=== PATIENT | female | born 1945 | race Caucasian/White ===

== ENCOUNTER 2019-04-17 21:17 | Inpatient (IN) | payer MEDICARE, OTHER ==
[~2019-04-17] VITALS: Ht 160 cm; Wt 126.0 kg
[2019-04-17 15:43] VITALS: BP 143/63
--- NOTE | 2019-04-17 21:32 | ED Abdominal Pain ---
General Stated Complaint: ABD PAIN Source of Information: Patient History of Present Illness Date Seen by Provider: Apr 17, 2019 Time Seen by Provider: 21:32 Initial Comments 73 yo F presenting with lower abdominal pain that is sharp in nature. She states she fell about a month ago and landed forward on her abdomen and face. She had seen Dr. River about the fall and was taking some medicine prescribed by him. However, in the last few days she has been having increased pain in the low abdomen. She felt the pain was worse tonight. 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 She feels it is worse with palpation. She denies having any blood in her stools or urine. She has no black tarry stools. She has had no fever, chills, nausea or vomiting. She denies having pain like this in the past. she is a diabetic patient. Allergies and Home Medications Allergies Coded Allergies: No Known Drug Allergies (Unverified , 04/17/19) Patient Home Medication List Home Medication List Reviewed: Yes Review of Systems Review of Systems Constitutional: No chills, No fever EENTM: No Symptoms Reported Respiratory: No Symptoms Reported Cardiovascular: No Symptoms Reported Gastrointestinal: See HPI, Abdominal Pain (low abdominal pain); Denies Blood Streaked Stools, Denies Constipated; Diarrhea (chronic); Denies Difficulty Swallowing, Denies Nausea, Denies Rectal Bleeding, Denies Vomiting Genitourinary: No Symptoms Reported; Denies Burning, Denies Discharge, Denies Drainage, Denies Frequency, Denies Flank Pain, Denies Hematuria, Denies Incontinence, Denies Urgency Musculoskeletal: back pain (chronic but no worse than normal and no radiation of low abdominal pain to her back) Skin: No rash Psychiatric/Neurological: Denies Headache, Denies Numbness, Denies Paresthesia Endocrine: Denies Unexplained Weight Gain, Denies Unexplaned Weight Loss Past Tqnhcfd-Eryjjz-Uzmywg Hx Patient Social History Recent Foreign Travel: No Contact w/Someone Who Travel: No Past Medical History Surgeries: Yes Appendectomy, Gallbladder, Hysterectomy Endocrine: Yes Diabetes, Non-Insulin dep Physical Exam Vital Signs Vital Signs - First Documented 04/17/19 21:20 Temp 36.5 Pulse 74 Resp 18 B/P (MAP) 163/95 (117) Pulse Ox 95 O2 Delivery Room Air Capillary Refill : Height/Weight/BMI Height: '" Weight: lbs. oz. 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 tested, alert, oriented x 3, other (anxious and tearful) Skin: normal color, warm/dry Progress/Results/Core Measures Results/Orders Lab Results Laboratory Tests Test 04/17/19 21:40 04/17/19 23:00 Range/Units White Blood Count 13.7 H 4.3-11.0 10^3/uL Red Blood Count 5.23 4.35-5.85 10^6/uL Hemoglobin 14.6 11.5-16.0 G/DL Hematocrit 45 35-52 % Mean Corpuscular Volume 87 80-99 FL Mean Corpuscular Hemoglobin 28 25-34 PG Mean Corpuscular Hemoglobin Concent 32 32-36 G/DL Red Cell Distribution Width 14.2 10.0-14.5 % Platelet Count 314 130-400 10^3/uL Mean Platelet Volume 10.1 7.4-10.4 FL Neutrophils (%) (Auto) 66 42-75 % Lymphocytes (%) (Auto) 23 12-44 % Monocytes (%) (Auto) 8 0-12 % Eosinophils (%) (Auto) 2 0-10 % Basophils (%) (Auto) 1 0-10 % Neutrophils # (Auto) 9.1 H 1.8-7.8 X 10^3 Lymphocytes # (Auto) 3.2 1.0-4.0 X 10^3 Monocytes # (Auto) 1.0 0.0-1.0 X 10^3 Eosinophils # (Auto) 0.3 0.0-0.3 10^3/uL Basophils # (Auto) 0.1 0.0-0.1 10^3/uL Sodium Level 135 135-145 MMOL/L Potassium Level 4.9 3.6-5.0 MMOL/L Chloride Level 100 98-107 MMOL/L Carbon Dioxide Level 21 21-32 MMOL/L Anion Gap 14 5-14 MMOL/L Blood Urea Nitrogen 41 H 7-18 MG/DL Creatinine 2.01 H 0.60-1.30 MG/DL Estimat Glomerular Filtration Rate 24 BUN/Creatinine Ratio 20 Glucose Level 174 H 70-105 MG/DL Calcium Level 9.7 8.5-10.1 MG/DL Corrected Calcium 9.9 8.5-10.1 MG/DL Total Bilirubin 0.3 0.1-1.0 MG/DL Aspartate Amino Transf (AST/SGOT) 15 5-34 U/L Alanine Aminotransferase (ALT/SGPT) 14 0-55 U/L Alkaline Phosphatase 82 40-136 U/L Total Protein 7.1 6.4-8.2 GM/DL Albumin 3.8 3.2-4.5 GM/DL Lipase 35 8-78 U/L Urine Color YELLOW Urine Clarity SL CLOUDY Urine pH 6.0 5-9 Urine Specific [place] >=1.030 1.016-1.022 Urine Protein NEGATIVE NEGATIVE Urine Glucose (UA) NEGATIVE NEGATIVE Urine Ketones NEGATIVE NEGATIVE Urine Nitrite NEGATIVE NEGATIVE Urine Bilirubin NEGATIVE NEGATIVE Urine Urobilinogen 0.2 < = 1.0 MG/DL Urine Leukocyte Esterase 1+ H NEGATIVE Urine RBC (Auto) NEGATIVE NEGATIVE Urine RBC NONE /HPF Urine WBC 25-50 H /HPF Urine Squamous Epithelial Cells 10-25 H /HPF Urine Crystals NONE /LPF Urine Bacteria LARGE H /HPF Urine Casts NONE /LPF Urine Mucus MODERATE H /LPF Urine Culture Indicated YES My Orders Orders - HUGO ROCHA MD Comprehensive Metabolic Panel (04/17/19 21:49) Lipase (04/17/19 21:49) Ua Culture If Indicated (04/17/19 21:49) Ed Iv/Invasive Line Start (04/17/19 21:49) Cbc With Automated Diff (04/17/19 21:49) Ct Abdomen/Pelvis W (04/17/19 21:49) Fentanyl Injection (Sublimaze Injection (04/17/19 21:49) Ns Iv 1000 Ml (Sodium Chloride 0.9%) (04/17/19 21:49) Iohexol Injection (Omnipaque 350 Mg/Ml 1 (04/17/19 22:00) Received Contrast (Hold Metformin- Contr (04/17/19 22:00) Sodium Chloride Flush (Catheter Flush Sy (04/17/19 22:00) Ns (Ivpb) (Sodium Chloride 0.9% Ivpb Bag (04/17/19 22:00) Ct Abdomen/Pelvis Wo (04/17/19 22:17) Urine Culture (04/17/19 23:00) Fentanyl Injection (Sublimaze Injection (04/17/19 23:23) Ns Iv 1000 Ml (Sodium Chloride 0.9%) (04/17/19 23:23) Ciprofloxacin Iv 400mg/200ml (Cipro Iv S (04/17/19 23:23) Metronidazole 500mg/100ml Ivpb (Flagyl 5 (04/17/19 23:23) Vital Signs/I&O 04/17/19 21:20 Temp 36.5 Pulse 74 Resp 18 B/P (MAP) 163/95 (117) Pulse Ox 95 O2 Delivery Room Air 04/18/19 00:00 Intake Total 1000 ml Balance 1000 ml Progress Progress Note #1: Progress Note check labs and urine. Plan to do CT scan of abdomen/pelvis with IV contrast once the labs are back to see what her creatinine and kidney function is doing. Try a dose of Fentanyl 50 mcg to see if that helps her pain. She denies nausea so will not need Zofran. Give IVF 1 L NS for hydration and keep pt NPO until know if she needs any surgical intervention from testing and CT results. Progress Note #2: Progress Note Labs show that she has mild elevation of her WBC count to 13.7 and her chemistry panel shows elevated BUN and Cr. Cr is at 2.1 but unknown if she has a chronic renal insufficiency or if this is an acute issue for her. Will change the CT from a contrast study to non contrast study. Progress Note #3: Time: 23:[address] scan shows sigmoid diverticulitis without perforation or abscess. Urine shows UTI without hematuria. Pt still having pain despite fentanyl. Based on her age and comorbidities and continued pain she has a greater risk for higher morbidity and mortality with this so would recommend IV antibiotics, pain medicine and IVF for hydration for initial treatment and then transition to oral medicine as she is showing improvement in the hospital for transition to home. Will check with Dr. Gill test kitchen home economist for Dr. River and [facility] about admit. Progress Note #4: Time: 00:[address] Gill accepted admit so will place orders for patient and continue with IVF and IV antibiotics starting with cipro and flagyl. Diagnostic Imaging Diagonstic Imaging: CT Plain Films/CT/US/NM/MRI: abdomen, pelvis Comments Impression: Sigmoid colon diverticulitis with mild stranding around the sigmoid colon. No abscess, free fluid, perforation or bowel obstruction seen. Radiologist: Dr. Esvin George MD. Read at [phone] and faxed at [phone]. Reviewed: Reviewed Night [facility] Study Departure Communication (Admissions) Time/Spoke to Admitting Phy: 00:[address] Gill for Dr. River with [facility] and she accepted pt for admit for her acute sigmoid diverticulitis, UTI, and renal insufficiency. Will give Cipro and flagyl and IVF and monitor her response to the medicine to see how her kidney function does as well as how her pain level does. Hopefully she responds quickly and she will be able to transition to oral antibiotics and be transitioned to home but until she is showing improvement and to make sure the kidney function is not worsening will have to recheck her labs. Impression Primary Impression: Sigmoid diverticulitis Additional Impressions: Cystitis without hematuria Acute renal insufficiency LLQ abdominal pain Suprapubic abdominal pain Disposition: ADMITTED INPATIENT Condition: Stable Admissions Decision to Admit Reason: Admit from ER (General) Decision to Admit/Date: Apr 18, 2019 Time/Decision to Admit Time: 00:06 Departure-Patient Inst. Referrals: YANELI RIVER MD (PCP/Family) Primary Care Physician HUGO ROCHA MD Apr 17, 2019 21:32
[2019-04-17] MEDS ORDERED: fentaNYL INJECTION 100 MCG/2 ML AMP IVP STA ×2 (21:49→23:23)
[2019-04-17] MEDS ORDERED: NS IV 1000 ML 1,000 ML IV STA ×2 (21:49→23:23)
[2019-04-17] MEDS ORDERED: IOHEXOL 350 MG/ML 100 ML (OMNIPAQUE 350) VIAL IV ONE (22:00)
[2019-04-17] MEDS ORDERED: HOLD METFORMIN - RECEIVED CONTRAST 20 ML VIAL IV SCH (22:00)
[2019-04-17] MEDS ORDERED: NS 100 ML (IVPB) BAG IV ONE (22:00)
[2019-04-17] MEDS ORDERED: CATHETER FLUSH 10 ML SYR IV PRN (22:00)
[2019-04-17 22:05] LABS: BASOPHILS # (AUTO) 0.1 10^3/uL (0.0-0.1); BASOPHILS % (AUTO) 1 % (0-10); EOSINOPHILS # (AUTO) 0.3 10^3/uL (0.0-0.3); EOSINOPHILS % (AUTO) 2 % (0-10); HEMATOCRIT 45 % (35-52); HEMOGLOBIN 14.6 G/DL (11.5-16.0); LYMPHOCYTES # (AUTO) 3.2 X 10^3 (1.0-4.0); LYMPHOCYTES % (AUTO) 23 % (12-44); MEAN CORPUSCULAR HEMOGLOBIN 28 PG (25-34); MEAN CORPUSCULAR HGB CONC 32 G/DL (32-36); MEAN CORPUSCULAR VOLUME 87 FL (80-99); MEAN PLATELET VOLUME 10.1 FL (7.4-10.4); MONOCYTES % (AUTO) 8 % (0-12); NEUTROPHILS # (AUTO) 9.1 X 10^3 (1.8-7.8); NEUTROPHILS % (AUTO) 66 % (42-75); PLATELET COUNT 314 10^3/uL (130-400); RED CELL DISTRIBUTION WIDTH 14.2 % (10.0-14.5); WHITE BLOOD COUNT 13.7 10^3/uL (4.3-11.0)
[2019-04-17 22:10] LABS: ALBUMIN 3.8 GM/DL (3.2-4.5); BILIRUBIN,TOTAL 0.3 MG/DL (0.1-1.0); CALCIUM 9.7 MG/DL (8.5-10.1); CREATININE SERUM 2.01 MG/DL (0.60-1.30); POTASSIUM 4.9 MMOL/L (3.6-5.0); TOTAL PROTEIN 7.1 GM/DL (6.4-8.2)
[2019-04-17 23:18] LABS: BACTERIA,URINE LARGE /HPF; BILIRUBIN,URINE NEGATIVE (NEGATIVE); CLARITY,URINE SL CLOUDY; COLOR,URINE YELLOW; GLUCOSE, URINE (UA) NEGATIVE (NEGATIVE); KETONES,URINE NEGATIVE (NEGATIVE); LEUKOCYTE ESTERASE ,URINE 1+ (NEGATIVE); NITRITE,URINE NEGATIVE (NEGATIVE); PROTEIN,URINE NEGATIVE (NEGATIVE); WBC,URINE 25-50 /HPF
[2019-04-17] MEDS ORDERED: CIPROFLOXACIN IV 400MG/200ML 200 ML IV STA (23:23)
[2019-04-17] MEDS ORDERED: metroNIDAZOLE 500MG/100ML IVPB 100 ML IV STA (23:23)
[2019-04-18] MEDS ORDERED: morphine INJ 4 MG/ML 1 ML (VIAL/SYRINGE) ONE (01:51)
[2019-04-18 01:58] VITALS: BP 162/67
[2019-04-18] MEDS: NS IV 1000 ML 1,000 ML IV SCH ×3 (03:00→19:55)
[2019-04-18] MEDS ORDERED: ONDANSETRON 4 MG/2 ML (SDV) Z0FRAN IV PRN (03:15)
--- NOTE | 2019-04-18 04:47 | NUR ---
o2 2l per nc applied pox on room air 86%.. pox 96% after o2 application
--- NOTE | 2019-04-18 04:52 | NUR ---
0200 pt admitted from [facility]. a/o x4 iv site patent. see admission
[2019-04-18 05:32] LABS: BASOPHILS % (AUTO) 0 % (0-10); EOSINOPHILS # (AUTO) 0.2 10^3/uL (0.0-0.3); EOSINOPHILS % (AUTO) 2 % (0-10); HEMATOCRIT 43 % (35-52); HEMOGLOBIN 13.6 G/DL (11.5-16.0); LYMPHOCYTES # (AUTO) 1.1 X 10^3 (1.0-4.0); LYMPHOCYTES % (AUTO) 10 % (12-44); MEAN CORPUSCULAR HEMOGLOBIN 28 PG (25-34); MEAN CORPUSCULAR HGB CONC 32 G/DL (32-36); MEAN CORPUSCULAR VOLUME 87 FL (80-99); MEAN PLATELET VOLUME 10.4 FL (7.4-10.4); MONOCYTES # (AUTO) 0.6 X 10^3 (0.0-1.0); MONOCYTES % (AUTO) 6 % (0-12); NEUTROPHILS # (AUTO) 8.2 X 10^3 (1.8-7.8); NEUTROPHILS % (AUTO) 82 % (42-75); PLATELET COUNT 252 10^3/uL (130-400); RED CELL DISTRIBUTION WIDTH 14.7 % (10.0-14.5); WHITE BLOOD COUNT 10.1 10^3/uL (4.3-11.0)
[2019-04-18 05:49] LABS: ALBUMIN 3.4 GM/DL (3.2-4.5); BILIRUBIN,TOTAL 0.4 MG/DL (0.1-1.0); CALCIUM 8.8 MG/DL (8.5-10.1); CREATININE SERUM 1.73 MG/DL (0.60-1.30); POTASSIUM 4.3 MMOL/L (3.6-5.0); TOTAL PROTEIN 6.4 GM/DL (6.4-8.2)
[2019-04-18 05:53] VITALS: BP 151/59
[2019-04-18] MEDS: metroNIDAZOLE 500 MG/100 ML IVPB (PRE-MIX) IV SCH ×3 (06:21→21:13)
[2019-04-18] MEDS ORDERED: FLU QUADRIvalent (5+ YOA) 2019-2020 (AFLURIA) 0.5 ML IM ONE (06:45)
--- NOTE | 2019-04-18 07:27 | Diagnostic Imaging Report ---
CT ABDOMEN/PELVIS WO TECHNIQUE: Unenhanced CT imaging of the abdomen and pelvis was performed. 2-D reformats are created and submitted for interpretation. Automatic exposure controls were utilized to optimize patient dose. INDICATION: Abdominal pain COMPARISON: None available. FINDINGS: Evaluation of the abdominal viscera is mildly limited without contrast. Lower chest: There is small amount of dependent atelectasis in the bilateral lower lobes. Otherwise, lung bases are clear. Peritoneum: No free intraperitoneal air or fluid. Liver and biliary system: Unenhanced liver is normal. Cholecystectomy. Spleen and Pancreas: Spleen is normal. Unenhanced pancreas is grossly normal. Adrenals: Normal. tract: No renal or ureteral calculi. No obstructive uropathy. Urinary bladder is normally filled without wall thickening. Hysterectomy. No adnexal mass. GI tract: Stomach is partially filled with fluid and food debris. No bowel obstruction. There is a short segment of diverticulosis in the mid sigmoid colon with surrounding fat stranding and wall thickening indicative of acute diverticulitis. No perforation or abscess. Appendix is not seen but there are no features of appendicitis. Vasculature and Lymph nodes: Normal caliber aorta. No abdominal or pelvic lymphadenopathy. Musculoskeletal: No concerning osseous lesion. IMPRESSION: 1. Acute diverticulitis of the sigmoid colon. 2. No perforation, abscess or bowel obstruction. 3. Findings are in agreement with the preliminary report. Dictated by: Dictated on workstation # [id number]
[2019-04-18 08:00] VITALS: BP 143/77
[2019-04-18] MEDS: CIPROFLOXACIN 400 MG/D5W 200 ML (PRE-MIX) IV SCH ×2 (08:26→19:55)
[2019-04-18] MEDS ORDERED: ONDA4TAB10 PO (08:32)
[2019-04-18] MEDS ORDERED: ASPI-983 PO (08:32)
[2019-04-18] MEDS ORDERED: ESTR0.5T3 PO (09:44)
[2019-04-18] MEDS ORDERED: ATOR40TA70 PO (09:44)
[2019-04-18] MEDS ORDERED: CRV25T PO (09:44)
[2019-04-18] MEDS ORDERED: VERA120T10 PO (09:44)
[2019-04-18] MEDS ORDERED: CYCL10TA9 PO (09:44)
[2019-04-18] MEDS ORDERED: GLIP10TA13 PO (09:44)
[2019-04-18] MEDS ORDERED: LEVO75TA6 PO (09:44)
[2019-04-18] MEDS ORDERED: CITA20TA9 PO (09:44)
[2019-04-18] MEDS: morphine INJ 4 MG/ML 1 ML (VIAL/SYRINGE) IV PRN ×3 (09:54→19:53)
--- NOTE | 2019-04-18 10:05 | NUR ---
PATIENT USES [facility] FOR 2019 BUT IN 2020 WILL BE USING [facility], HER MEDS COME MOSTLY VIA MAIL. HER BROUGHT IN HER BOTTLES THIS MORNING AND SHE ASSURES ME THESE ARE ALL SHE TAKES. SOME OF THEM HAVE OLD FILL DATES, SHE STATE SHE DUMPS HER NEW BOTTLES INTO THE OLD ONES AND THAT IS WHY SOME OF THE DATES ARE PAST DUE FOR REFILL. BOTTLES SHE BROUGHT IN: 03-13-19 ESTRADIOL 0.5MG DAILY #90 03-13-19 LEVOTHYROXINE 75MCG DAILY #90 02-23-19 ATORVASTATIN 40MG DAILY #90 12-26-18 CYCLOBENZAPRINE 10MG HS #90 12-26-18 GLIPIZIDE 10MG BID #180 12-26-18 CITALOPRAM 20MG 1 & 1/2 HS #135 12-26-18 VERAPAMIL ER 120MG 12HR DAILY #90 11-29-17 COREG 25MG BID #180 SHE HAS ZOFRAN 4MG THAT WAS FILLED RECENTLY AT [facility] SHE ALSO HAS SOME OF THE ORAL DISINTEGRATING TABLETS. SHE TAKES ASPIRIN 81MG DAILY OTC.
--- NOTE | 2019-04-18 10:21 | History & Physical ---
KIM PANDEY,MED STUDENT 04/18/19 1021: History of Present Illness History of Present Illness Reason for visit/HPI Patient is a 73 year old female who presented to [facility] ED c/o abdominal pain intermittently for the last 3 months. She states the pain is diffuse but worse in the RLQ and would come and go, but starting last night became constant. At the ED she rated her pain a 10/10, and at the time of this exam rates the pain a 7/10. She describes the pain as sharp and nonradiating. She states that nothing in particular makes the pain better or worse. She also reports inter mittent diarrhea that she has had "for a long time". Denies blood in stool, or black tarry stools. Denies n/v. Admits bloating that began yesterday, and dizziness upon standing up too fast. States that she has never had pain like this in the past. Date of Admission Apr 18, 2019 at 00:06 Time Seen by a Provider: 09:45 I consulted on this patient on 04/18/19 10:12 Attending Physician Jennifer Gill MD Admitting Physician Papi Zarate MD Consult Allergies and Home Medications Allergies Coded Allergies: No Known Drug Allergies (Unverified , 04/17/19) Home Medications Aspirin 81 Mg Tablet.dr, 81 MG PO DAILY, (Reported) Atorvastatin Calcium 40 Mg Tablet, 40 MG PO DAILY, (Reported) Carvedilol 25 Mg Tab, 25 MG PO BID, (Reported) Citalopram Hydrobromide 20 Mg Tablet, 30 MG PO DAILY, (Reported) TAKES 1 & 1/2 (20MG) TABLET Cyclobenzaprine HCl 10 Mg Tablet, 10 MG PO HS, (Reported) Estradiol 0.5 Mg Tablet, 0.5 MG PO DAILY, (Reported) Glipizide 10 Mg Tablet, 10 MG PO BID WITH MEALS, (Reported) Levothyroxine Sodium 75 Mcg Tablet, 75 MCG PO DAILY, (Reported) Ondansetron HCl 4 Mg Tablet, 4 MG PO Q6H PRN for NAUSEA/VOMITING-1ST LINE, (Reported) Verapamil HCl 120 Mg Tablet.er, 120 MG PO DAILY, (Reported) Past Rihavgm-Mkmxsm-Tthucg Hx Patient Social History Alcohol Use: Denies Use Recreational Drug Use: No Smoking Status: Never a Smoker 2nd Hand Smoke Exposure: No Recent Foreign Travel: No Contact w/other who traveled: No Recent Hopitalizations: No Recent Infectious Disease Expo: No Surgeries Yes Appendectomy, Gallbladder, Hysterectomy Respiratory No Cardiovascular Yes High Cholesterol, Hypertension Neurological No Genitourinary No Gastrointestinal No Musculoskeletal No Endocrine History of Endocrine Disorders: Yes Endocrine Disorders: Diabetes, Non-Insulin dep HEENT History of HEENT Disorders: No Cancer No Psychosocial History of Psychiatric Problem: No Integumentary History of Skin or Integumenta: No Blood Transfusions History of Blood Disorders: No Family Medical History Significant Family History: Lung Disease, Other Conditions/Hx (Father of [place]) Review of Systems Constitutional: No chills; dizziness (lightheadedness on standing occasionally); No fever Respiratory: No cough, No hemoptysis, No short of breath, No stridor Cardiovascular: No chest pain, No edema, No palpitations Gastrointestinal: abdominal pain (RLQ), diarrhea; No hematemesis, No melena, No nausea, No vomiting Genitourinary: No dysuria, No frequency, No hematuria Musculoskeletal: neck pain Physical Exam Vital Signs Vital Signs - First Documented 04/17/19 04/18/19 21:20 05:53 Temp 36.5 Pulse 74 Resp 18 B/P (MAP) 163/95 (117) Pulse Ox 95 O2 Delivery Room Air O2 Flow Rate 2.00 Capillary Refill : Less Than 3 SecondsLess Than 3 Seconds Height, Weight, BMI Height: '" Weight: lbs. oz. kg; 49.21 BMI Method: General Appearance: No Apparent Distress, WD/WN Eyes: Bilateral Eye PERRL, Bilateral Eye EOMI HEENT: PERRL/EOMI; No Pharyngeal Erythema, No Scleral Icterus (L), No Scleral Icterus (R) Neck: Non Tender, Supple; No Lymphadenopathy (L), No Lymphadenopathy (R) Respiratory: Lungs Clear, Normal Breath Sounds, No Accessory Muscle Use, No Respiratory Distress; No Rhonci, No Wheezing Cardiovascular: Regular Rate, Rhythm, No Murmur, Normal Peripheral Pulses Gastrointestinal: Normal Bowel Sounds, Soft; No Distended, No Guarding, No Rebound; Tenderness (RLQ, LLQ with palpation) Extremity: Normal Capillary Refill, Non Tender, No Calf Tenderness Neurologic/Psychiatric: Alert, Oriented x3, Normal Mood/Affect Skin: Normal Color, Warm/Dry; No Jaundice Lymphatic: No Adenopathy Assessment/Plan Assessment and Plan RLQ abdominal pain Acute diverticulitis Cystitis w/o hematuria Leukocytosis Continue Flagyl and Cipro Continue fentanyl prn for pain Monitor leukocytosis Normal diet as tolerated Admission Diagnosis Admission Status: Observation Clinical Quality Measures DVT/VTE Risk/Contraindication: Risk Factor Score Per Nursin RFS Level Per Nursing on Admit: 2=Moderate CHE MCCOY MD 04/18/19 1601: History of Present Illness History of Present Illness Reason for visit/HPI Agree with above Patient states that she is feeling better this AM. She tolerated breakfast. Date Seen by a Provider: Apr 18, 2019 Allergies and Home Medications Allergies Coded Allergies: No Known Drug Allergies (Unverified , 04/17/19) Home Medications Aspirin 81 Mg Tablet.dr, 81 MG PO DAILY, (Reported) Atorvastatin Calcium 40 Mg Tablet, 40 MG PO DAILY, (Reported) Carvedilol 25 Mg Tab, 25 MG PO BID, (Reported) Citalopram Hydrobromide 20 Mg Tablet, 30 MG PO DAILY, (Reported) TAKES 1 & 1/2 (20MG) TABLET Cyclobenzaprine HCl 10 Mg Tablet, 10 MG PO HS, (Reported) Estradiol 0.5 Mg Tablet, 0.5 MG PO DAILY, (Reported) Glipizide 10 Mg Tablet, 10 MG PO BID WITH MEALS, (Reported) Levothyroxine Sodium 75 Mcg Tablet, 75 MCG PO DAILY, (Reported) Ondansetron HCl 4 Mg Tablet, 4 MG PO Q6H PRN for NAUSEA/VOMITING-1ST LINE, (Reported) Verapamil HCl 120 Mg Tablet.er, 120 MG PO DAILY, (Reported) Patient Home Medication List Home Medication List Reviewed: Yes Past Ypjqtuc-Gbying-Igbqaf Hx Patient Social History Living Status: Living with Surgeries Yes Hysterectomy Respiratory Yes Cardiovascular Yes Neurological No Gastrointestinal Yes Endocrine History of Endocrine Disorders: Yes Endocrine Disorders: Hypothyroidsim Review of Systems Constitutional: No chills; dizziness (lightheadedness on standing occasionally); No fever EENTM: no symptoms reported Respiratory: no symptoms reported; No cough, No hemoptysis, No short of breath, No stridor Cardiovascular: no symptoms reported; No chest pain, No edema, No palpitations Gastrointestinal: abdominal pain (RLQ), diarrhea, loss of appetite Genitourinary: no symptoms reported; No dysuria, No frequency, No hematuria : No Control/STD Prophylaxis: None Musculoskeletal: neck pain Skin: no symptoms reported Psychiatric/Neurological: No Symptoms Reported Physical Exam General Appearance: No Apparent Distress, WD/WN HEENT: PERRL/EOMI Neck: Non Tender, Supple Respiratory: Chest Non Tender, Lungs Clear, Normal Breath Sounds, No Accessory Muscle Use, No Respiratory Distress Cardiovascular: Regular Rate, Rhythm, No Edema, No Murmur, Normal Peripheral Pulses Gastrointestinal: Soft; No Distended, No Guarding, No Rebound; Tenderness (RLQ, LLQ with palpation) Back: No CVA Tenderness, No Vertebral Tenderness Extremity: Normal Capillary Refill, Non Tender, No Calf Tenderness, No Pedal Edema Neurologic/Psychiatric: Alert, Oriented x3, No Motor/Sensory Deficits, Normal Mood/Affect, sequins stringer II-XII Norm as Tested Skin: Normal Color, Warm/Dry Lymphatic: No Adenopathy Assessment/Plan Assessment and Plan Problems: (1) Sigmoid diverticulitis Status: Acute Assessment & Plan: - Cipro/Flagyl, bland diet, will transition to PO tomorrow (2) Acute renal insufficiency Status: Acute Assessment & Plan: - IVF, continue to monitor Cr, Improving (3) HTN (hypertension) Status: Acute (4) Hypothyroidism Status: Chronic Qualifiers: Qualified Codes: E03.9 - Hypothyroidism, unspecified (5) Cystitis without hematuria Status: Acute Admission Diagnosis Admission Status: Observation Supervisory-Addendum Brief Verification & Attestation Participated in pt care: history Personally performed: exam Care discussed with: Medical Student Procedures: n/a Verification and Attestation of Medical Student E/M Service A medical student performed and documented this service in my presence. I reviewed and verified all information documented by the medical student and made modifications to such information, when appropriate. I personally performed the physical exam and medical decision making. Che Mccoy, Apr 18, 2019,16:12 KIM PANDEY,MED STUDENT Apr 18, 2019 10:21 CHE MCCOY MD Apr 18, 2019 16:01
[2019-04-18 12:00] VITALS: BP 133/61
[2019-04-18 16:43] VITALS: BP 143/63
[2019-04-18 19:25] VITALS: BP 143/69
[2019-04-18] MEDS: CARVEDILOL 12.5 MG (COREG) TABLET PO SCH (19:54)
[2019-04-18] MEDS ORDERED: NON-FORMULARY MEDICATION 1 EA EA (Carvedilol (Coreg) 25 MG) PO SCH (21:00)
[2019-04-19 00:05] VITALS: BP 165/72
[2019-04-19] MEDS: NS IV 1000 ML 1,000 ML IV SCH (01:31)
[2019-04-19] MEDS: metroNIDAZOLE 500 MG/100 ML IVPB (PRE-MIX) IV SCH (05:45)
[2019-04-19] MEDS ORDERED: LEVOTHYROXINE 75 MCG (LEVOTHROID) TABLET PO SCH (06:30)
[2019-04-19 07:02] LABS: BASOPHILS % (AUTO) 0 % (0-10); EOSINOPHILS # (AUTO) 0.3 10^3/uL (0.0-0.3); EOSINOPHILS % (AUTO) 3 % (0-10); HEMATOCRIT 38 % (35-52); HEMOGLOBIN 11.8 G/DL (11.5-16.0); LYMPHOCYTES # (AUTO) 2.4 X 10^3 (1.0-4.0); LYMPHOCYTES % (AUTO) 24 % (12-44); MEAN CORPUSCULAR HEMOGLOBIN 28 PG (25-34); MEAN CORPUSCULAR HGB CONC 31 G/DL (32-36); MEAN CORPUSCULAR VOLUME 89 FL (80-99); MEAN PLATELET VOLUME 10.1 FL (7.4-10.4); MONOCYTES # (AUTO) 1.2 X 10^3 (0.0-1.0); MONOCYTES % (AUTO) 12 % (0-12); NEUTROPHILS # (AUTO) 6.1 X 10^3 (1.8-7.8); NEUTROPHILS % (AUTO) 61 % (42-75); PLATELET COUNT 221 10^3/uL (130-400); RED CELL DISTRIBUTION WIDTH 15.1 % (10.0-14.5)
[2019-04-19 07:24] LABS: ALBUMIN 3.2 GM/DL (3.2-4.5); BILIRUBIN,TOTAL 0.3 MG/DL (0.1-1.0); CALCIUM 7.9 MG/DL (8.5-10.1); CREATININE SERUM 1.32 MG/DL (0.60-1.30); POTASSIUM 4.3 MMOL/L (3.6-5.0); TOTAL PROTEIN 5.8 GM/DL (6.4-8.2)
[2019-04-19 08:00] VITALS: BP 132/57
[2019-04-19] MEDS: CARVEDILOL 12.5 MG (COREG) TABLET PO SCH (08:10)
[2019-04-19] MEDS: CIPROFLOXACIN 400 MG/D5W 200 ML (PRE-MIX) IV SCH (08:11)
[2019-04-19] MEDS: morphine INJ 4 MG/ML 1 ML (VIAL/SYRINGE) IV PRN (08:11)
[2019-04-19] MEDS ORDERED: NON-FORMULARY MEDICATION 1 EA EA (Verapamil HCl (Verapamil ER) 120 MG) PO SCH (09:00)
[2019-04-19] MEDS ORDERED: NON-FORMULARY MEDICATION 1 EA EA (Estradiol (Estrace Tablet) 0.5 MG) PO SCH (09:00)
[2019-04-19] MEDS ORDERED: ESTRADIOL 1 MG TAB (ESTRACE) PO SCH (09:00)
[2019-04-19] MEDS ORDERED: ASPIRIN E.C. 81 MG (ECOTRIN) TAB PO SCH (09:00)
[2019-04-19] MEDS ORDERED: VERAPAMIL SR 240 MG (CALAN SR) TAB PO SCH (09:00)
[2019-04-19] MEDS ORDERED: CIPR-225 PO (11:18)
[2019-04-19] MEDS ORDERED: METR500T PO (11:18)
--- NOTE | 2019-04-19 11:21 | Discharge Instructions ---
Discharge [facility] Discharge Medications New, Converted or Re-Newed RX: Transmitted to Pharmacy New Medications: Ciprofloxacin HCl (Cipro) 500 Mg Tablet 500 MG PO BID, #14 TAB 0 Refills Metronidazole (Flagyl) 500 Mg Tablet 500 MG PO TID, #21 TAB 0 Refills Continued Medications: Aspirin (Aspirin EC) 81 Mg Tablet.dr 81 MG PO DAILY, TAB Atorvastatin Calcium (Atorvastatin Calcium) 40 Mg Tablet 40 MG PO DAILY, TAB Carvedilol (Coreg) 25 Mg Tab 25 MG PO BID, TAB Citalopram Hydrobromide (Citalopram HBr) 20 Mg Tablet 30 MG PO DAILY, TAB TAKES 1 & 1/2 (20MG) TABLET Cyclobenzaprine HCl (Cyclobenzaprine HCl) 10 Mg Tablet 10 MG PO HS, TAB Estradiol (Estrace Tablet) 0.5 Mg Tablet 0.5 MG PO DAILY, TAB Glipizide (Glipizide) 10 Mg Tablet 10 MG PO BID WITH MEALS, TAB Levothyroxine Sodium (Levothyroxine Sodium) 75 Mcg Tablet 75 MCG PO DAILY, TAB Verapamil HCl (Verapamil ER) 120 Mg Tablet.er 120 MG PO DAILY, TAB Discontinued Medications: Ondansetron HCl (Ondansetron HCl) 4 Mg Tablet 4 MG PO Q6H PRN for NAUSEA/VOMITING-1ST LINE, TAB Patient Instructions Goal/Follow Up Appt: Follow up with Dr. Zarate on 04/24 at 9 am. Patient Instructions: Do not take citalopram while taking antibiotics due to possible interaction. Advance diet slowly. You have a urinary tract infection in addition to the diverticulitis, it is E. coli, but the sensitivity is pending. Activity & Diet Discharge Diet: ADA Diet Activity as Tolerated: Yes Orders-Post D/C & Referrals Pneu Vac Indicated: Yes Copy Copies To 1: YANELI ZARATE MD, BETHANY N MD Apr 19, 2019 11:21
[2019-04-19 13:00] VITALS: BP 132/57
--- NOTE | 2019-04-19 15:07 | NUR ---
"RD ASSESSMENT PMHx: hypercholesterolemia; HTN; DM PT INTERACTION: Pt was awake and pleasant during nutrition assessment. Pt states current appetite is pretty good and has been for some time. Note avg PO intake of 67% x1d, per chart review. Pt states following regular diet at home and has no issues with chewing/swallowing food. Pt states no recent issues with n/v/c at this time. Pt states having recent issues with diarrhea, and that her last BM was 04/17. Note pt not currently on bowel regimen per chart review. Pt states no recent wt changes. Note unable to determine recent wt hx per chart review. ABNORMAL NUTRITION-RELATED LAB VALUES LOW: Ca 7.9; Pro 5.8 HIGH: Cl 113; BUN 28; cr 1.32; glu 136 Est. kcal needs: 2932-3721 kcal | 15-18 kcal/kg Est. Pro needs: 101-126 g Pro | 0.8-1.0 g Pro/kg PES STATEMENT: Inadequate oral intake (NI-2.1) related to diarrhea as evidenced by pt interview | avg PO intake of 67% x1d INTERVENTION: Continue with current diet order of CHO 60g/m 1snack diet. Encouraged pt to eat when able. Will continue to follow and reassess as pt needs and status change. MONITOR/EVALUATE: PO Intake; Plan of Care; Hydration Status; Weight Status; Lab Values Ike Wolfe, MS, RD, LD"
--- NOTE | 2019-04-21 14:15 | Discharge Summary ---
Discharge Summary Hospital Course Hospital Course Date of Admission: Apr 18, 2019 at 00:06 Admission Diagnosis : Family Physician/Provider: Yaneli Zarate MD Date of Discharge: 04/21/19 Discharge Diagnosis: Diverticulitis BARB Cystitis Hospital Course: Pt admitted and started on cipro/flagyl and IVF and had significant improvement overnight, tolerating liquids and wanting to go home. Discharged on cipro/flagyl. Labs and Pending Lab Test: Microbiology 04/17/19 Urine Culture - Final, Complete Escherichia coli Escherichia coli#2 Home Meds Active Cipro (Ciprofloxacin HCl) 500 Mg Tablet 500 Mg PO BID Flagyl (Metronidazole) 500 Mg Tablet 500 Mg PO TID Reported Glipizide 10 Mg Tablet 10 Mg PO BID WITH MEALS Estrace Tablet (Estradiol) 0.5 Mg Tablet 0.5 Mg PO DAILY Verapamil ER (Verapamil HCl) 120 Mg Tablet.er 120 Mg PO DAILY Citalopram HBr (Citalopram Hydrobromide) 20 Mg Tablet 30 Mg PO DAILY TAKES 1 & 1/2 (20MG) TABLET Atorvastatin Calcium 40 Mg Tablet 40 Mg PO DAILY Cyclobenzaprine HCl 10 Mg Tablet 10 Mg PO HS Levothyroxine Sodium 75 Mcg Tablet 75 Mcg PO DAILY Coreg (Carvedilol) 25 Mg Tab 25 Mg PO BID Aspirin EC (Aspirin) 81 Mg Tablet.dr 81 Mg PO DAILY Assessment/Pt DC Instructions See above Orders-Post D/C & Referrals Pneu Vac Indicated: Yes Discharge Physical Examination Allergies: Coded Allergies: No Known Drug Allergies (Unverified , 04/17/19) General Appearance: No Apparent Distress, WD/WN Respiratory: Lungs Clear, Normal Breath Sounds Cardiovascular: Regular Rate, Rhythm, No Murmur Gastrointestinal: Normal Bowel Sounds, Soft Neurologic/Psychiatric: Alert, No Motor/Sensory Deficits Copy Copies To 1: YANELI ZARATE MD Clinical Quality Measures DVT/VTE Risk/Contraindication: Risk Factor Score Per Nursin RFS Level Per Nursing on Admit: 2=Moderate PRAKASH SHARMA MD Apr 21, 2019 14:15
== END 2019-04-19 13:00 | disposition home or self-care (01) | DRG 392 ==
LOC: ER FS 21:20 → 4TH 04-18 00:06
PROVIDERS: ADMIT Family Medicine; ATTEND Family Medicine
DX: K57.32 Diverticulitis of large intestine without perforation or abscess without bleeding (principal); N30.00 Acute cystitis without hematuria; N28.9 Disorder of kidney and ureter, unspecified; I10 Essential (primary) hypertension; E03.9 Hypothyroidism, unspecified; D72.829 Elevated white blood cell count, unspecified; E11.9 Type 2 diabetes mellitus without complications; E78.00 Pure hypercholesterolemia, unspecified
CPT/HCPCS: 36415; 74176; 80053; 81000; 82962; 83690; 85025; 87077; 87088; 87186; 96361; 96365; 96367; 96368; 96375; 96376

== ENCOUNTER → 2019-07-31 | Outpatient (CLI) | payer MEDICARE ==
[~2019-07-31] MED LIST: ASPI-983 PO; ATOR40TA70 PO; CIPR-225 PO; CITA20TA9 PO; CRV25T PO; CYCL10TA9 PO; ESTR0.5T3 PO; GLIP10TA13 PO; LEVO75TA6 PO; METR500T PO; ONDA-105 PO; VERA120T10 PO
--- NOTE | 2019-07-31 11:55 | Diagnostic Imaging Report ---
INDICATION: Increasing back pain AP and lateral views of the lumbar spine are obtained. Correlation is made to study of 04/17/2019. There is slight left convexity curvature of the lumbar spine. Mild diffuse disc space narrowing is present most pronounced at the L2-L3 level. There is also grade 1 anterolisthesis of L4 on L5 with sclerosis at the L4-L5 and L5-S1 levels. IMPRESSION: Mild degenerative findings similar to previous study. There is grade 1 anterolisthesis of L4 on L5 which is not significantly changed when compared to study of 04/17/2019. Dictated by: Dictated on workstation # [id number]
== END ==
LOC: RAD FS 11:17
PROVIDERS: ATTEND Family Medicine
DX: M47.816 Spondylosis without myelopathy or radiculopathy, lumbar region (principal); M43.16 Spondylolisthesis, lumbar region
CPT/HCPCS: 72100

== ENCOUNTER 2021-01-16 05:41 | Outpatient (CLI) | payer MEDICARE, OTHER ==
[~2021-01-16] VITALS: Ht 160 cm; Wt 122.7 kg
[~2021-01-16 05:41] MED LIST changes: +ASPI-1238 PO; -ASPI-983 PO; -VERA120T10 PO; +VERA120T27 PO
[2021-01-21] MEDS ORDERED: ONDA-105 PO (10:48)
[2021-01-21] MEDS ORDERED: TRZ50T PO (10:48)
[2021-01-21] MEDS ORDERED: DESV100T6 PO (10:48)
[2021-01-21] MEDS ORDERED: HYDR50TA76 PO (10:48)
[2021-01-21] MEDS ORDERED: TIZA-169 PO (10:48)
== END 2021-01-21 11:06 | disposition home or self-care (01) ==
LOC: PREOP 05:41
PROVIDERS: ATTEND Otolaryngology Otolaryngology/Facial Plastic Surgery
DX: Z01.818 Encounter for other preprocedural examination (principal)

== ENCOUNTER 2021-01-23 07:22 | Day surgery (SDC) | payer MEDICARE ==
[~2021-01-23] VITALS: Ht 160 cm; Wt 122.7 kg
[2021-01-23] VITALS (11 sets, daily range): BP systolic 100–180; BP diastolic 60–99
[~2021-01-23 07:22] MED LIST changes: +DESV100T6 PO; +HYDR50TA76 PO; +TIZA-169 PO; +TRZ50T PO
[2021-01-23] MEDS ORDERED: LACTATED RINGERS 1,000 ML IV PRN (08:15)
[2021-01-23] MEDS ORDERED: MUPIROCIN 2% OINT 22 GM (BACTROBAN) TUBE ONE (09:12)
[2021-01-23] MEDS ORDERED: LIDOCAINE/EPI 1%-1:100,000 (XYLOCAINE) 20ML ONE (09:12)
[2021-01-23] MEDS ORDERED: BSS 15 ML ONE (09:12)
[2021-01-23] MEDS ORDERED: LIDOCAINE PF 2% 5 ML (XYLOCAINE) VIAL ONE (09:31)
[2021-01-23] MEDS ORDERED: ONDANSETRON 4 MG/2 ML (SDV) Z0FRAN ONE (09:31)
[2021-01-23] MEDS ORDERED: fentaNYL INJ 100 MCG/2 ML AMP ONE (09:31)
[2021-01-23] MEDS ORDERED: proPOfol 200 MG/20 ML (DIPRIVAN) VIAL IV ONE ×2 (09:31→10:37)
[2021-01-23] MEDS ORDERED: DESFLURANE (SUPRANE) 15 ML INHAL SOLN ONE (10:36)
[2021-01-23] MEDS ORDERED: SEVOFLURANE (ULTANE) 15 ML INHAL SOLN ONE (10:36)
[2021-01-23] MEDS ORDERED: SUCCINYLCHOLINE INJ 100 MG/5 ML SYR/VIAL ONE (10:36)
--- NOTE | 2021-01-23 10:43 | Progress Note-Pre Operative ---
Pre-Operative Progress Note H&P Reviewed The H&P was reviewed, patient examined and no changes noted. Date Seen by Provider: Jan 23, 2021 Time Seen by Provider: 10:00 Date H&P Reviewed: Jan 23, 2021 Time H&P Reviewed: 10:00 Pre-Operative Diagnosis: Left Nasal Ala Lesion WILD RADER MD Jan 23, 2021 10:43
--- NOTE | 2021-01-23 10:44 | Progress Note-Post Operative ---
Post-Operative Progess Note Surgeon (s)/Supervisor Blood Donor Recruiters (s) Surgeon WILD RADER MD Supervisor Blood Donor Recruiters n/a Pre-Operative Diagnosis Left Nasal Ala Lesion Post-Operative Diagnosis same Post-Op Procedure Note Date of Procedure: Jan 23, 2021 Name of Procedure Performed: Excision of Left Nasal Ala Lesion, Reconstruction with Full Thickness Skin Graft, Donor Site-Left Pre-Auricular Region Description & Findings Description and Findings: n/a Anesthesia Type lma Estimated Blood Loss minimal Packing none. Specimen(s) collected/removed left nasal ala lesion for frozen WILD RADER MD Jan 23, 2021 10:44
[2021-01-23] MEDS ORDERED: ACETAMINOPHEN 325 MG TABLET PO PRN ×2 (10:45)
[2021-01-23] MEDS ORDERED: HYDROcodone/APAP 5 MG/325 MG (LORTAB) TAB PO PRN (10:45)
--- NOTE | 2021-01-23 11:30 | Anesthesia-General Post-Op ---
General Patient Condition Mental Status/LOC: Same as Preop Cardiovascular: Satisfactory Nausea/Vomiting: Absent Respiratory: Satisfactory Pain: Controlled Complications: Absent Post Op Complications Complications None Follow Up Care/Instructions Patient Instructions None needed. Anesthesia/Patient Condition Patient Condition Patient is doing well, no complaints, stable vital signs, no apparent adverse anesthesia problems. No complications reported per nursing. MANOLO ARNOLD CRNA Jan 23, 2021 11:30
[2021-01-23] MEDS ORDERED: CEPH500T PO (12:26)
[2021-01-23] MEDS ORDERED: ACHD5005 PO (12:26)
== END 2021-01-23 13:11 | disposition home or self-care (01) ==
LOC: SDC 07:22
PROVIDERS: ATTEND Otolaryngology Otolaryngology/Facial Plastic Surgery
DX: C44.311 Basal cell carcinoma of skin of nose (principal); I10 Essential (primary) hypertension; E78.5 Hyperlipidemia, unspecified; E11.9 Type 2 diabetes mellitus without complications; F32.9 Major depressive disorder, single episode, unspecified; E03.9 Hypothyroidism, unspecified; F41.9 Anxiety disorder, unspecified; Z79.82 Long term (current) use of aspirin; Z79.899 Other long term (current) drug therapy; Z79.890 Hormone replacement therapy; Z79.84 Long term (current) use of oral hypoglycemic drugs
CPT/HCPCS: 82947; 87081

== ENCOUNTER 2021-02-20 06:37 | Outpatient (CLI) | payer MEDICARE ==
[~2021-02-20] VITALS: Ht 160 cm; Wt 126.1 kg
[~2021-02-20 06:37] MED LIST changes: +ACHD5005 PO; +CEPH500T PO; -VERA120T27 PO; +VERA120T74 PO
[2021-02-20] MEDS ORDERED: TRZ50T PO (14:37)
== END 2021-02-20 14:41 | disposition home or self-care (01) ==
LOC: PREOP 06:37
PROVIDERS: ATTEND Surgery
DX: Z01.818 Encounter for other preprocedural examination (principal)

== ENCOUNTER 2021-02-26 09:03 | Day surgery (SDC) | payer MEDICARE ==
[~2021-02-26] VITALS: Ht 160 cm; Wt 126.1 kg
[2021-02-26] VITALS (10 sets, daily range): BP systolic 130–173; BP diastolic 70–88
[2021-02-26] MEDS ORDERED: ceFAZolin 2 GM IV Premixed 50 ML IV ONE (09:15)
[2021-02-26] MEDS ORDERED: LACTATED RINGERS 1,000 ML IV PRN ×2 (09:15)
--- NOTE | 2021-02-26 10:00 | Progress Note-Pre Operative ---
Pre-Operative Progress Note H&P Reviewed The H&P was reviewed, patient examined and no changes noted. Time Seen by Provider: 09:58 Date H&P Reviewed: Feb 26, 2021 Time H&P Reviewed: 09:58 Pre-Operative Diagnosis: right thigh mass, site marked AMANDA SHAFER DO Feb 26, 2021 10:00
[2021-02-26] MEDS ORDERED: fentaNYL INJ 100 MCG/2 ML AMP ONE (10:57)
[2021-02-26] MEDS ORDERED: LIDOCAINE PF 2% 5 ML (XYLOCAINE) VIAL ONE (10:57)
[2021-02-26] MEDS ORDERED: SEVOFLURANE (ULTANE) 15 ML INHAL SOLN ONE (10:57)
[2021-02-26] MEDS ORDERED: proPOfol 200 MG/20 ML (DIPRIVAN) VIAL IV ONE (10:57)
[2021-02-26] MEDS ORDERED: ONDANSETRON 4 MG/2 ML (SDV) Z0FRAN ONE (10:57)
[2021-02-26] MEDS ORDERED: MIDAZOLAM 2 MG/2 ML (VERSED) VIAL ONE (10:58)
[2021-02-26] MEDS ORDERED: LIDOCAINE/EPI 1%-1:100,000 (XYLOCAINE) 20ML ONE (11:10)
--- NOTE | 2021-02-26 11:48 | Progress Note-Post Operative ---
Post-Operative Progess Note Surgeon (s)/City Carrier Assistant (s) Surgeon AMANDA SHAFER DO City Carrier Assistant: CHERIE Morgan Pre-Operative Diagnosis right thigh mass, site marked Post-Operative Diagnosis same pending path Procedure & Operative Findings Date of Procedure 02/26/21 Procedure Performed/Findings Exc of right thigh mass, subQ tissue, 3.9cm incision Anesthesia Type LMA Estimated Blood Loss Estimated blood loss (mL): scant Specimens/Packing Specimens Removed right thigh mass, 4 x 3 x 2.5 cm AMANDA SHAFER DO Feb 26, 2021 11:48
[2021-02-26] MEDS ORDERED: ACHD5005 PO (11:49)
--- NOTE | 2021-02-26 11:50 | Discharge Inst-Surgical ---
Discharge Inst-Surgical Depart Medication/Instructions New, Converted or Re-Newed RX: Transmitted to Pharmacy Patient Instructions Follow up Appt: Make appointment for 1 week. [phone] Instructions: No lifting greater than 20 pounds. No strenuous activity. May shower in 24 hours, no tub bath or soaking. Use incentive spirometer at home as directed. No Smoking Skin/Wound Care: May remove bandages in am. You need to leave the Dermabond on incision it will fall off on it's own. Symptoms to Report: Appetite Changes, Extremity Discoloration, Numbness/Tingling, Swelling Increased, Bleeding Excessive, Eyesight Changes, Pain Increased, Urine Color Change, Constipation(Persistent), Fever over 101 degree F, Pain/Pressure in chest, Urinating Difficulty, Cough Up/Vomit Blood, Heart Beat Irreg/Pounding, Pain/Pressure in jaw, Cramps in feet or legs, Lightheadedness, Pain/Pressure in shoulder, Diarrhea(Persistent), Memory Changes Suddenly, Questions/Concerns, Weight gain consecutive days, Dizziness/Fainting, Nausea/Vomiting, Shortness of Breath, Weight gain over 2 pounds If questions or concerns contact your physician Or seek help at emergency department. Activity Activity as Tolerated: Yes Activity Instructions: Avoid Stress to Incision Driving Instructions: No Driving/Refer to Dr. Arora Discharge Diet: No Restrictions Diet After 24 Hours: Clear Liquid if Nauseous If Any Problems/Questions/Issu: Contact Your Physician, Go to Emergency Room Skin/Wound Care Infection Signs and Symptoms: Increased Redness, Foul Odor of Wound, Increased Drainage, Skin Itchy or Has a Rash, Increased Swelling, Temperature Above 101 F Bathing Instructions: Shower Stitches/[place]/Dermabond Dis: AMANDA Villegas DO Feb 26, 2021 11:50
--- NOTE | 2021-02-26 17:34 | OPERATIVE REPORT ---
DATE OF SERVICE: 02/26/2021 PREOPERATIVE DIAGNOSIS: Right thigh mass. POSTOPERATIVE DIAGNOSIS: Right thigh mass, pending pathology. PROCEDURE: Excision of right thigh mass down to the subcutaneous tissue. Incision measured 3.9 cm. SURGEON: Praveen Izaguirre DO POLICE CAPTAIN: Bill Benton. ANESTHESIA: LMA. SPECIMEN: Right thigh mass measuring about 4 x 3 x 2.5 cm. BLOOD LOSS: Scant. FLUIDS: Per anesthesia. POSTOPERATIVE CONDITION: Stable. INDICATION FOR PROCEDURE: The patient is a 75-year-old female who has a right thigh mass. It has got some bruising around it, causing some moderate to severe pain and she wanted to get this removed. FINDINGS: The patient had a right thigh mass removed and sent to pathology. PROCEDURE NOTE: After informed consent was obtained, the patient was brought to the operating room, placed on the table in the supine position with the right leg frog legged. The right leg had been marked as well as the site over the mass. A timeout done and everyone confirmed. She was sterilely prepped and draped in normal fashion. Local lidocaine was used to infiltrate the skin over the mass, then made an incision with #15 blade, carried down through the skin and subcutaneous tissue, this measured about 3.9 cm, carefully dissecting around this mass bluntly and then able to actually express this right through the incision popped out. Looked like there was a lipoma in the subcutaneous tissue. We cauterized the connections and then removed this and passed off table, irrigated and cleaned the incision with saline and then closed the incision with 4-0 undyed Monocryl, 3 interrupted subcuticular stitches. Area was cleaned and dried. Dermabond placed as well as a pressure dressing. The patient tolerated the procedure. Sponge, instrument and needle count correct at the end of the case. Job ID: [id number] DocumentID: [id number] Dictated Date: 02/26/2021 11:56:51 Licensed Psychologist Date: 02/26/2021 17:34:07 Dictated By: PRAVEEN IZAGUIRRE DO
--- NOTE | 2021-02-27 13:05 | Anesthesia-General Post-Op ---
General Significant Intra-Op Events Notes late entry 02/26/21 @ 1300 Patient Condition Mental Status/LOC: Same as Preop Cardiovascular: Satisfactory Nausea/Vomiting: Absent Respiratory: Satisfactory Pain: Controlled Complications: Absent Post Op Complications Complications None Follow Up Care/Instructions Patient Instructions None needed. Anesthesia/Patient Condition Patient Condition Patient is doing well, no complaints, stable vital signs, no apparent adverse anesthesia problems. No complications reported per nursing. MANOLO ARNOLD CRNA Feb 27, 2021 13:05
== END 2021-02-26 13:55 | disposition home or self-care (01) ==
LOC: SDC 09:03
PROVIDERS: ATTEND Surgery
DX: D17.23 Benign lipomatous neoplasm of skin and subcutaneous tissue of right leg (principal); I10 Essential (primary) hypertension; E11.40 Type 2 diabetes mellitus with diabetic neuropathy, unspecified; E66.9 Obesity, unspecified; E78.00 Pure hypercholesterolemia, unspecified; F41.9 Anxiety disorder, unspecified; F32.A Depression, unspecified; E03.9 Hypothyroidism, unspecified; Z79.899 Other long term (current) drug therapy; Z68.42 Body mass index [BMI] 45.0-49.9, adult; Z79.84 Long term (current) use of oral hypoglycemic drugs; Z79.891 Long term (current) use of opiate analgesic; Z79.890 Hormone replacement therapy
CPT/HCPCS: 82947; 87081

== ENCOUNTER 2021-04-02 12:00 | Emergency (ER) | payer MEDICARE ==
[~2021-04-02] VITALS: Ht 160 cm; Wt 126.1 kg
[~2021-04-02 12:00] MED LIST changes: +CYCL10TA25 PO; -CYCL10TA9 PO
[2021-04-02] MEDS ORDERED: NS IV 1000 ML 1,000 ML IV SCH (12:30)
--- NOTE | 2021-04-02 12:34 | ED General ---
General Chief Complaint: COVID19 Suspect/Confirmed Stated Complaint: SOB; COVID EXPOSURE Nursing Triage Note: Patient presents to the ED with c/o shortness of breath, weakness, shakiness, nausea, and diarrhea. She states her symptoms began 7 days ago. She reports she was exposed to her daughter that tested positive for COVID yesterday. Source of Information: Patient History of Present Illness Date Seen by Provider: Apr 02, 2021 Time Seen by Provider: 12:07 Initial Comments 75-year-old female presenting with complaints of generally not feeling well. She said for the last week she has been having diarrhea as well as nausea. She feels a little more short of breath than usual. In general she feels weak and shaky. She denies fever or chills. Yesterday her daughter tested for Covid and was positive. Her daughter lives with her. Since she has not been feeling well her daughter advised her to come be seen and get tested. The patient initially was saying that she just wanted to be tested for Covid and then plan it was explained that in the emergency department she would have to undergo a full battery of testing and not just a Covid swab she agreed to do that rather than go to urgent care or [facility] where she could just have the swab done. She has not tried to see her regular provider during the last week when she had not been feeling well. She denies pain or burning with urination. She has not been coughing more than normal Timing/Duration: 1 Week Severity: Moderate Associated Systoms: No Chest Pain; Cough (occasional); No Diaphoresis, No Fever/Chills, No Headaches, No Loss of Appetite; Malaise, Nausea/Vomiting (nausea but no vomiting ); No Seizure, No Shortness of Air, No Syncope; Weakness (general) Allergies and Home Medications Allergies Coded Allergies: No Known Drug Allergies (Unverified , 04/17/19) Patient Home Medication List Home Medication List Reviewed: Yes Atorvastatin Calcium (Atorvastatin Calcium) 40 Mg Tablet, 40 MG PO DAILY, (Reported) Entered as Reported by: TO CHACON on 04/18/19 0993 Azithromycin (Azithromycin) 250 Mg Tablet, 250 MG PO DAILY Prescribed by: HUGO ROCHA on 04/02/21 1528 Carvedilol (Coreg) 25 Mg Tab, 25 MG PO BID, (Reported) Entered as Reported by: TO CHACON on 04/18/19 09 Desvenlafaxine (Desvenlafaxine ER) 100 Mg Tab.er.24h, 100 MG PO DAILY, (Reported) Entered as Reported by: KHLOE FORD on 01/21/21 1048 Estradiol (Estrace Tablet) 0.5 Mg Tablet, 0.5 MG PO DAILY, (Reported) Entered as Reported by: TO CHACON on 04/18/19 09 Glipizide (Glipizide) 10 Mg Tablet, 10 MG PO DAILY, (Reported) Entered as Reported by: TO CHACON on 04/18/19 09 Hydrocodone/Acetaminophen (Hydrocodone-Acetamin 5-325 mg) 1 Each Tablet, 1 TAB PO Q8H PRN for PAIN-MODERATE (5-7) Prescribed by: AMANDA SHAFER on 02/26/21 1149 Hydroxyzine HCl (Hydroxyzine HCl) 50 Mg Tablet, 50 MG PO BID PRN for ANXIETY, (Reported) Entered as Reported by: KHLOE FORD on 01/21/21 1048 Levothyroxine Sodium (Levothyroxine Sodium) 75 Mcg Tablet, 75 MCG PO DAILY, (Reported) Entered as Reported by: TO CHACON on 04/18/19943 Ondansetron HCl (Ondansetron HCl) 4 Mg Tablet, 4 MG PO Q4H PRN for NAUSEA/VOMITING, (Reported) Entered as Reported by: KHLOE FORD on 01/21/21 1048 Tizanidine HCl (Tizanidine HCl) 2 Mg Tablet, 2 MG PO BID, (Reported) Entered as Reported by: KHLOE FORD on 01/21/21 1048 Trazodone HCl (Trazodone HCl) 50 Mg Tablet, 50 MG PO HS PRN for SLEEP, (Reported) Entered as Reported by: ALYSSA VITAL on 02/20/21 1437 Verapamil HCl (Verapamil ER) 120 Mg Tablet.er, 120 MG PO DAILY, (Reported) Entered as Reported by: TO CHACON on 04/18/19 09 Review of Systems Review of Systems Constitutional: No chills, No fever; malaise, weakness (general) EENTM: no symptoms reported Respiratory: cough (occasional); No short of breath Cardiovascular: No chest pain Gastrointestinal: No abdominal pain; diarrhea; No nausea, No vomiting Genitourinary: no symptoms reported Musculoskeletal: no symptoms reported Skin: no symptoms reported Psychiatric/Neurological: Anxiety Hematologic/Lymphatic: Denies Blood Clots Past Wgaiygn-Ceeqby-Bkclbk Hx Patient Social History Tobacco Use?: No Use of E-Cig and/or Vaping dev: No Substance use?: No Alcohol Use?: No Pt feels they are or have been: No Immunizations Up To Date First/Initial COVID19 Vaccinat: Not currently vaccinated Seasonal Allergies Seasonal Allergies: No Past Medical History Surgery/Hospitalization HX: HTN; High cholesterol; DM; Hypothyroidism Surgeries: Yes (GROWTH REMOVED FROM RIGHT YAZIDI, NASAL SURGERY) Appendectomy, Gallbladder, Hysterectomy, Nose Respiratory: No Currently Using CPAP: No Currently Using BIPAP: No Cardiac: Yes High Cholesterol, Hypertension Neurological: Yes Headaches /Migraines, Neuropathy, Stroke Female 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 Sexually Transmitted Disease: No HIV/AIDS: No Genitourinary: No Gastrointestinal: No Musculoskeletal: Yes Arthritis Endocrine: Yes Hypothyroidsim, Diabetes, Non-Insulin dep HEENT: Yes (WEARS GLASSES) Loss of Vision: Denies Hearing Impairment: Denies Cancer: Yes Skin What Type of Treatment Did You: Surgical Intervention Psychosocial: Yes Sleep Difficulties, Anxiety, Depression Integumentary: No Blood Disorders: No Family Medical History Lung Disease, Other Conditions/Hx Physical Exam Vital Signs Vital Signs - First Documented 04/02/21 04/02/21 12:00 14:07 Temp 37.1 Pulse 82 Resp 20 B/P (MAP) 179/79 (112) Pulse Ox 93 O2 Delivery Room Air O2 Flow Rate 2.00 Capillary Refill : Less Than 3 Seconds Height, Weight, BMI Height: '" Weight: lbs. oz. kg; 49.00 BMI Method: General Appearance: Anxious, Mild Distress, Obese HEENT: PERRL/EOMI, Pharynx Normal, Moist Mucous Membranes Respiratory: Chest Non Tender, Accessory Muscle Use, Decreased Breath Sounds; No Rhonci, No Stridor; Wheezing Cardiovascular: Regular Rate, Rhythm, No Murmur, Normal Peripheral Pulses Gastrointestinal: Normal Bowel Sounds, No Pulsatile Mass, Non Tender, Soft Rectal: Deferred Extremity: Normal Capillary Refill, Normal Inspection, No Pedal Edema Neurologic/Psychiatric: Alert, Oriented x3, hospice nurse II-XII Norm as Tested Skin: Normal Color, Warm/Dry Focused Exam Lactate Level 04/02/21 12:30: Lactic Acid Level 2.42*H Lactic Acid Level Laboratory Tests Test 04/02/21 12:30 Lactic Acid Level 2.42 MMOL/L (0.50-2.00) *H Progress/Results/Core Measures Suspected Sepsis SIRS Temperature: Pulse: 82 Respiratory Rate: 20 Laboratory Tests 04/02/21 12:30: White Blood Count 6.8 Blood Pressure 179 /79 Mean: 112 04/02/21 12:30: Lactic Acid Level 2.42*H Laboratory Tests 04/02/21 12:30: Creatinine 1.46H, INR Comment 1.0, Platelet Count 174, Total Bilirubin 0.5 Results/Orders Lab Results Laboratory Tests Test 04/02/21 12:28 04/02/21 12:30 Range/Units Glucometer 164 H 70-110 MG/DL White Blood Count 6.8 4.3-11.0 10^3/uL Red Blood Count 5.32 H 3.80-5.11 10^6/uL Hemoglobin 14.9 11.5-16.0 g/dL Hematocrit 45 35-52 % Mean Corpuscular Volume 84 80-99 fL Mean Corpuscular Hemoglobin 28 25-34 pg Mean Corpuscular Hemoglobin Concent 33 32-36 g/dL Red Cell Distribution Width 14.4 10.0-14.5 % Platelet Count 174 130-400 10^3/uL Mean Platelet Volume 10.6 9.0-12.2 fL Immature Granulocyte % (Auto) 0 % Neutrophils (%) (Auto) 58 42-75 % Lymphocytes (%) (Auto) 30 12-44 % Monocytes (%) (Auto) 12 0-12 % Eosinophils (%) (Auto) 0 0-10 % Basophils (%) (Auto) 0 0-10 % Neutrophils # (Auto) 4.0 1.8-7.8 X 10^3 Lymphocytes # (Auto) 2.0 1.0-4.0 X 10^3 Monocytes # (Auto) 0.8 0.0-1.0 X 10^3 Eosinophils # (Auto) 0.0 0.0-0.3 10^3/uL Basophils # (Auto) 0.0 0.0-0.1 10^3/uL Immature Granulocyte # (Auto) 0.0 0.0-0.1 10^3/uL Prothrombin Time 13.1 12.2-14.7 SEC INR Comment 1.0 0.8-1.4 Activated Partial Thromboplast Time 29 24-35 SEC Sodium Level 136 135-145 MMOL/L Potassium Level 4.5 3.6-5.0 MMOL/L Chloride Level 102 98-107 MMOL/L Carbon Dioxide Level 20 L 21-32 MMOL/L Anion Gap 14 5-14 MMOL/L Blood Urea Nitrogen 18 7-18 MG/DL Creatinine 1.46 H 0.60-1.30 MG/DL Estimat Glomerular Filtration Rate 35 BUN/Creatinine Ratio 12 Glucose Level 171 H 70-105 MG/DL Lactic Acid Level 2.42 *H 0.50-2.00 MMOL/L Calcium Level 8.3 L 8.5-10.1 MG/DL Corrected Calcium 8.8 8.5-10.1 MG/DL Total Bilirubin 0.5 0.1-1.0 MG/DL Aspartate Amino Transf (AST/SGOT) 27 5-34 U/L Alanine Aminotransferase (ALT/SGPT) 26 0-55 U/L Alkaline Phosphatase 94 40-136 U/L Troponin I < 0.30 <0.30 NG/ML C-Reactive Protein 3.45 H <0.50 MG/DL Total Protein 6.9 6.4-8.2 GM/DL Albumin 3.4 3.2-4.5 GM/DL Influenza Type A Antigen NEGATIVE NEGATIVE Influenza Type B Antigen NEGATIVE NEGATIVE SARS-CoV-2 RNA (RT-PCR) Detected H Not Detecte My Orders Orders - HUGO ROCHA MD Monitor-Rhythm Ecg Trace Only (04/02/21 12:27) Ed Iv/Invasive Line Start (04/02/21 12:27) Cbc With Automated Diff (04/02/21 12:27) Comprehensive Metabolic Panel (04/02/21 12:27) Crp Fs (04/02/21 12:27) Troponin I Fs (04/02/21 12:27) Protime With Inr (04/02/21 12:27) Partial Thromboplastin Time (04/02/21 12:27) Ekg Tracing (04/02/21 12:27) Ns Iv 1000 Ml (Sodium Chloride 0.9%) (04/02/21 12:30) Covid 19 Inhouse Test (04/02/21 12:27) Influenza A & B Antigens (04/02/21 12:27) Blood Culture (04/02/21 12:27) Chest 1 View Ap/Pa Only (04/02/21 12:27) Ct Abdomen/Pelvis Wo (04/02/21 12:27) Isolation Central Supply Req (04/02/21 12:27) Lactic Acid Analyzer (04/02/21 12:27) Azithromycin Tablet (Zithromax Tablet) (04/02/21 15:00) Albuterol Inhaler (Albuterol) (04/02/21 15:00) Nursing Communication (Order) (04/02/21 15:00) Ceftriaxone 1 Gm Pre-Mix (Rocephin 1 Gm (04/02/21 15:16) Medications Given in ED Current Medications Medications Dose Ordered Sig/Sandra Route Start Time Stop Time Status Last Admin Dose Admin Albuterol Sulfate 2 PUFFS inhaled q 4 ho... Q4H PRN IH 04/02/21 15:00 04/02/21 15:55 DC 04/02/21 15:43 8.5 GM Vital Signs/I&O 04/02/21 04/02/21 04/02/21 12:00 14:07 15:55 Temp 37.1 37.1 Pulse 82 78 Resp 20 20 B/P (MAP) 179/79 (112) 165/68 Pulse Ox 93 94 95 O2 Delivery Room Air Nasal Cannula Room Air O2 Flow Rate 2.00 Capillary Refill : Less Than 3 Seconds Blood Pressure Mean: 112 Progress Note #1: Progress Note Patient was upset about having blood drawn. She would only allow any IV sticks or blood draws in her hands. She states she was only coming in because her daughter had tested positive. She was having diarrhea and just not feeling well. She is morbidly obese and has some mild increased work of breathing. Obtain labs as well as blood cultures and lactic acid. With her complaint of diarrhea will obtain a CT scan of her abdomen and pelvis. Give IV fluids for hydration. For her exposure to her daughter who tested positive for Covid she would be presumptive positive but we will send a swab anyway since the patient insisted on being tested. Progress Note #2: Progress Note Labs show she has a normal white blood cell count. She does have an elevated lactic acid to 2.42. Her creatinine is elevated 1.46. She was unable to provide any stool specimen here in the ED. Her CT scan of the abdomen pelvis did demonstrate signs of pneumonia in her lungs. Her abdomen and pelvis did not show signs of diverticulitis or colitis. She reported feeling a little better with treatment in the ED. When we went back to obtain repeat lactic acid and to obtain an ABG to document her oxygen saturation with her pneumonia and presumed Covid patient refused to have any further blood drawn or be stuck with a needle. She has initial O2 sat had dropped down to 89% as she was sitting slumped over on the bed. She did not have good posture order form on the bed and does have a large body habitus with concerns for obstructive sleep apnea. Patient was refusing to have the test done she was sitting up a little more straight and had O2 sat of 95% on room air. Will start on oral antibiotic and a lbuterol inhaler with spacer. Counseled on follow-up and return precautions. If she was having worsening symptoms she should be rechecked or seek medical evaluation. As she may need to be admitted for further treatment Progress Note #3: Progress Note Just prior to discharge of the patient her Covid swab did come back and was positive. Again knowing that she had been exposed to her daughter who tested positive and having symptoms it was presumed that she would be positive on her testing ECG Initial ECG Impression Date: Apr 02, 2021 Initial ECG Impression Time: 12:31 Initial ECG Rate: 74 Initial ECG Rhythm: Normal Sinus Initial ECG Comparisson: No Previous ECG Available Comment Normal sinus rhythm with a heart rate of 74 bpm. Borderline prolonged LA interval of 214 ms. Old signs of inferior infarct with Q waves in 2 3 and aVF. QT interval 404 ms with acute QTc interval of [address] elevation. No prior tracing immediately available for comparison Diagnostic Imaging Diagonstic Imaging: CT Plain Films/CT/US/NM/MRI: abdomen, pelvis Comments [facility] [place], [place] NAME: [facility] REC#: [id number] PT STATUS: REG ER : 1945 PHYSICIAN: HUGO ROCHA MD ADMIT DATE: 04/02/21/ER FS Signed Date of Exam:04/02/21 CT ABDOMEN/PELVIS WO PROCEDURE: CT abdomen and pelvis without contrast. TECHNIQUE: Multiple contiguous axial images were obtained through the abdomen and pelvis without the use of intravenous contrast. Auto Exposure Controls were utilized during the CT exam to meet ALARA standards for radiation dose reduction. INDICATION: Diarrhea for 7 days. Comparison is made with prior CT from 04/17/2019. FINDINGS: Imaging through lung bases does show some patchy airspace infiltrate in the right middle lobe and right lower lobe suggestive of pneumonia. Liver is unremarkable. Gallbladder appears to be surgically absent. There is no biliary duct dilatation. Pancreas and spleen are unremarkable. No adrenal mass is detected. No renal calculi are identified. There is no hydronephrosis. The aorta is calcified but nonaneurysmal. The small and large bowel loops appear to be normal caliber. There is diverticulosis of the descending and sigmoid colon but no evidence of acute diverticulitis. Bladder is decompressed. Uterus appears to be surgically absent. No free fluid or fluid collection is seen. IMPRESSION: 1. Patchy right middle lobe and right lower lobe infiltrate suggestive of pneumonia. 2. Uncomplicated diverticulosis. 3. No acute feature is identified. Dictated by: Dictated on workstation # [id number] Dict: 04/02/21 1330 Trans: 04/02/21 1521 [id number] Interpreted by: JAMIN RIOS MD Electronically signed by: JAMIN RIOS MD 04/02/21 1521 Reviewed: Reviewed by Ny Diagonstic Imaging: Xray Plain Films/CT/US/NM/MRI: chest Comments [facility] [place] NAME: [facility] REC#: [id number] PT STATUS: DEP ER : 1945 PHYSICIAN: HUGO ROCHA MD ADMIT DATE: 04/02/21/ER FS Signed Date of Exam:04/02/21 CHEST 1 VIEW AP/PA ONLY CLINICAL INDICATION: Patient with cough and shortness of breath. EXAM: Portable chest x-ray upright view. COMPARISON: None. FINDINGS: Lungs/pleura: Lungs are clear. There is no pneumothorax. There is no pleural effusion. Mediastinum: There is minimal prominence of the pulmonary vasculature seen centrally. Pulmonary vasculature: Unremarkable. Heart: Cardiac silhouette is mildly enlarged. Bones/extrathoracic soft tissue: There are small degenerative spurs involving the thoracic spine. IMPRESSION: 1: There is mild cardiomegaly with minimal prominence of the pulmonary vasculature centrally. 2: There is mild bibasilar atelectasis. Otherwise, there is no lung infiltrate. Dictated by: Dictated on workstation # [id number] Dict: 04/02/21 1310 Trans: 04/02/21 1720 [id number] Interpreted by: SUREKHA MCCALL MD Electronically signed by: SUREKHA MCCALL MD 04/02/211719 Reviewed: Reviewed by Me Departure Impression Primary Impression: Pneumonia due to COVID-19 virus Additional Impressions: Diarrhea Qualified Codes: R19.7 - Diarrhea, unspecified Dehydration Disposition: 01 HOME, SELF-CARE Condition: Stable Departure-Patient Inst. Decision time for Depature: 15:25 Referrals: YANELI RIVER MD (PCP/Family) Primary Care Physician Patient Instructions: COVID-19 ED, Dehydration, Adult ED, How to Use a Metered Dose Inhaler ED, How to Use a Spacer, Pneumonia, Adult ED Add. Discharge Instructions: Make sure to stay well-hydrated and drink plenty of fluids. Use the inhaler with spacer to help with cough and shortness of breath. Take the full course of antibiotics to treat for pneumonia from the Covid infection. This will help cover for any atypical bacterial infection that might be present in addition to the Covid virus If you have worsening symptoms with worsening shortness of breath return or seek medical attention as you may need to be admitted to [place] or to a hospital for additional care All discharge instructions reviewed with patient and/or family. Voiced understanding. Scripts Azithromycin (Azithromycin) 250 Mg Tablet 250 MG PO DAILY for pneumonia for 4 Days, #4 TAB 0 Refills Prov: HUGO ROCHA MD 04/02/21 HUGO ROCHA MD Apr 02, 2021 12:34
[2021-04-02 12:49] LABS: WHITE BLOOD COUNT 6.8 10^3/uL (4.3-11.0)
[2021-04-02 12:50] LABS: BASOPHILS % (AUTO) 0 % (0-10); EOSINOPHILS % (AUTO) 0 % (0-10); HEMATOCRIT 45 % (35-52); HEMOGLOBIN 14.9 g/dL (11.5-16.0); LYMPHOCYTES % (AUTO) 30 % (12-44); MEAN CORPUSCULAR HEMOGLOBIN 28 pg (25-34); MEAN CORPUSCULAR HGB CONC 33 g/dL (32-36); MEAN CORPUSCULAR VOLUME 84 fL (80-99); MEAN PLATELET VOLUME 10.6 fL (9.0-12.2); MONOCYTES # (AUTO) 0.8 X 10^3 (0.0-1.0); MONOCYTES % (AUTO) 12 % (0-12); NEUTROPHILS % (AUTO) 58 % (42-75); PLATELET COUNT 174 10^3/uL (130-400)
[2021-04-02 13:00] LABS: PROTHROMBIN TIME PATIENT 13.1 SEC (12.2-14.7)
--- NOTE | 2021-04-02 13:14 | Diagnostic Imaging Report ---
CLINICAL INDICATION: Patient with cough and shortness of breath. EXAM: Portable chest x-ray upright view. COMPARISON: None. FINDINGS: Lungs/pleura: Lungs are clear. There is no pneumothorax. There is no pleural effusion. Mediastinum: There is minimal prominence of the pulmonary vasculature seen centrally. Pulmonary vasculature: Unremarkable. Heart: Cardiac silhouette is mildly enlarged. Bones/extrathoracic soft tissue: There are small degenerative spurs involving the thoracic spine. IMPRESSION: 1: There is mild cardiomegaly with minimal prominence of the pulmonary vasculature centrally. 2: There is mild bibasilar atelectasis. Otherwise, there is no lung infiltrate. Dictated by: Dictated on workstation # [id number]
[2021-04-02 13:27] LABS: CARBON DIOXIDE 20 MMOL/L (21-32); CHLORIDE 102 MMOL/L (98-107); POTASSIUM 4.5 MMOL/L (3.6-5.0); SODIUM 136 MMOL/L (135-145)
[2021-04-02 13:28] LABS: ALANINE AMINOTRANSFERASE 26 U/L (0-55); ALKALINE PHOSPHATASE 94 U/L (40-136); BILIRUBIN,TOTAL 0.5 MG/DL (0.1-1.0); BUN/CREATININE RATIO 12; CALCIUM 8.3 MG/DL (8.5-10.1); CREATININE SERUM 1.46 MG/DL (0.60-1.30); GFR ESTIMATED 35; GLUCOSE 171 MG/DL (70-105); TOTAL PROTEIN 6.9 GM/DL (6.4-8.2)
[2021-04-02 13:29] LABS: ALBUMIN 3.4 GM/DL (3.2-4.5)
--- NOTE | 2021-04-02 13:36 | Diagnostic Imaging Report ---
PROCEDURE: CT abdomen and pelvis without contrast. TECHNIQUE: Multiple contiguous axial images were obtained through the abdomen and pelvis without the use of intravenous contrast. Auto Exposure Controls were utilized during the CT exam to meet ALARA standards for radiation dose reduction. INDICATION: Diarrhea for 7 days. Comparison is made with prior CT from 04/17/2019. FINDINGS: Imaging through lung bases does show some patchy airspace infiltrate in the right middle lobe and right lower lobe suggestive of pneumonia. Liver is unremarkable. Gallbladder appears to be surgically absent. There is no biliary duct dilatation. Pancreas and spleen are unremarkable. No adrenal mass is detected. No renal calculi are identified. There is no hydronephrosis. The aorta is calcified but nonaneurysmal. The small and large bowel loops appear to be normal caliber. There is diverticulosis of the descending and sigmoid colon but no evidence of acute diverticulitis. Bladder is decompressed. Uterus appears to be surgically absent. No free fluid or fluid collection is seen. IMPRESSION: 1. Patchy right middle lobe and right lower lobe infiltrate suggestive of pneumonia. 2. Uncomplicated diverticulosis. 3. No acute feature is identified. Dictated by: Dictated on workstation # [id number]
[2021-04-02] MEDS ORDERED: RT-ALBUTEROL HFA 8.5 GM INHALER IH PRN (15:00)
[2021-04-02] MEDS ORDERED: AZITHROMYCIN 250 MG TAB (ZITHROMAX) PO STA (15:00)
[2021-04-02] MEDS ORDERED: cefTRIAXone 1 GM PRE-MIX 0 ML IV ONE (15:16)
[2021-04-02] MEDS ORDERED: AZIT250T12 PO (15:28)
[2021-04-02 15:55] VITALS: BP 165/68
== END 2021-04-02 15:55 | disposition home or self-care (01) ==
LOC: EDUNIT# 12:00 → ER FS 12:02
DX: U07.1 COVID-19 (principal); J12.82 Pneumonia due to coronavirus disease 2019; E86.0 Dehydration; I10 Essential (primary) hypertension; E03.9 Hypothyroidism, unspecified; E11.9 Type 2 diabetes mellitus without complications; E78.00 Pure hypercholesterolemia, unspecified; F41.9 Anxiety disorder, unspecified; F32.9 Major depressive disorder, single episode, unspecified; E66.9 Obesity, unspecified; Z68.42 Body mass index [BMI] 45.0-49.9, adult; Z86.73 Personal history of transient ischemic attack (TIA), and cerebral infarction without residual deficits; Z79.890 Hormone replacement therapy; Z79.899 Other long term (current) drug therapy
CPT/HCPCS: 36415; 71045; 74176; 80053; 82947; 83605; 84484; 85025; 85610; 85730; 86141; 87040; 87636; 87804; 93005; 93041

== ENCOUNTER 2021-04-04 17:16 | Inpatient (IN) | payer MEDICARE ==
[~2021-04-04] VITALS: Ht 160 cm; Wt 121.2 kg
[~2021-04-04 17:16] MED LIST changes: +AZIT250T12 PO
--- NOTE | 2021-04-04 17:46 | ED Respiratory ---
General Chief Complaint: Respiratory Problems Stated Complaint: COVID +, SOA Source: patient Exam Limitations: no limitations History of Present Illness Date Seen by Provider: Apr 04, 2021 Time Seen by Provider: 17:44 Initial Comments To ER by private vehicle with reports of hypoxia with Covid. She was in [facility] yesterday she reports where she tested positive. She is been symptomatic for "about a month". She is unvaccinated against Covid, obese hypertensive diabetic. On arrival to ER her oxygen saturation is 68% on room air. Timing/Duration: constant Severity: moderate Prior Episodes/Possible Cause: no prior episodes Associated Symptoms: cough Allergies and Home Medications Allergies Coded Allergies: No Known Drug Allergies (Unverified , 04/17/19) Patient Home Medication List Home Medication List Reviewed: Yes Atorvastatin Calcium (Atorvastatin Calcium) 40 Mg Tablet, 40 MG PO DAILY, (Reported) Entered as Reported by: TO CHACON on 04/18/19 0944 Azithromycin (Azithromycin) 250 Mg Tablet, 250 MG PO DAILY Prescribed by: HUGO ROCHA on 04/02/21 1528 Carvedilol (Coreg) 25 Mg Tab, 25 MG PO BID, (Reported) Entered as Reported by: TO CHACON on 04/18/19 0944 Desvenlafaxine (Desvenlafaxine ER) 100 Mg Tab.er.24h, 100 MG PO DAILY, (Reported) Entered as Reported by: KHLOE FORD on 01/21/21 1048 Estradiol (Estrace Tablet) 0.5 Mg Tablet, 0.5 MG PO DAILY, (Reported) Entered as Reported by: TO CHACON on 04/18/19 0944 Glipizide (Glipizide) 10 Mg Tablet, 10 MG PO DAILY, (Reported) Entered as Reported by: TO CHACON on 04/18/19 0944 Hydrocodone/Acetaminophen (Hydrocodone-Acetamin 5-325 mg) 1 Each Tablet, 1 TAB PO Q8H PRN for PAIN-MODERATE (5-7) Prescribed by: AMANDA SHAFER on 02/26/21 1149 Hydroxyzine HCl (Hydroxyzine HCl) 50 Mg Tablet, 50 MG PO BID PRN for ANXIETY, (Reported) Entered as Reported by: KHLOE FORD on 01/21/21 1048 Levothyroxine Sodium (Levothyroxine Sodium) 75 Mcg Tablet, 75 MCG PO DAILY, (Reported) Entered as Reported by: TO CHACON on 04/18/19 0944 Ondansetron HCl (Ondansetron HCl) 4 Mg Tablet, 4 MG PO Q4H PRN for NAUSEA/VOMITING, (Reported) Entered as Reported by: KHLOE FORD on 01/21/21 1048 Tizanidine HCl (Tizanidine HCl) 2 Mg Tablet, 2 MG PO BID, (Reported) Entered as Reported by: KHLOE FORD on 01/21/21 1048 Trazodone HCl (Trazodone HCl) 50 Mg Tablet, 50 MG PO HS PRN for SLEEP, (Reported) Entered as Reported by: ALYSSA VITAL on 02/20/21 1437 Verapamil HCl (Verapamil ER) 120 Mg Tablet.er, 120 MG PO DAILY, (Reported) Entered as Reported by: TO CHACON on 04/18/19943 Review of Systems Review of Systems Constitutional: see HPI EENTM: see HPI Respiratory: no symptoms reported, cough Cardiovascular: no symptoms reported Genitourinary: no symptoms reported Musculoskeletal: no symptoms reported Skin: no symptoms reported Psychiatric/Neurological: No Symptoms Reported Hematologic/Lymphatic: No Symptoms Reported Past Njfdiwk-Aeecsy-Cwoeoo Hx Immunizations Up To Date First/Initial COVID19 Vaccinat: Not currently vaccinated Seasonal Allergies Seasonal Allergies: No Past Medical History Surgery/Hospitalization HX: HTN; High cholesterol; DM; Hypothyroidism Surgeries: Yes (GROWTH REMOVED FROM RIGHT HINDUISM, NASAL SURGERY) Appendectomy, Gallbladder, Hysterectomy, Nose Respiratory: No Currently Using CPAP: No Currently Using BIPAP: No Cardiac: Yes High Cholesterol, Hypertension Neurological: Yes Headaches /Migraines, Neuropathy, Stroke Female 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 Sexually Transmitted Disease: No HIV/AIDS: No Genitourinary: No Gastrointestinal: No Musculoskeletal: Yes Arthritis Endocrine: Yes Hypothyroidsim, Diabetes, Non-Insulin dep HEENT: Yes (WEARS GLASSES) Loss of Vision: Denies Hearing Impairment: Denies Cancer: Yes Skin What Type of Treatment Did You: Surgical Intervention Psychosocial: Yes Sleep Difficulties, Anxiety, Depression Integumentary: No Blood Disorders: No Family Medical History Lung Disease, Other Conditions/Hx Physical Exam Vital Signs - First Documented 04/04/21 18:29 Pulse Ox 97 O2 Delivery Vapotherm O2 Flow Rate 30.00 FiO2 60 Capillary Refill : Height: '" Weight: lbs. oz. kg; 49.00 BMI Method: General Appearance: WD/WN, severe distress, other ( Mentioned oxygen saturation is 68% with a good waveform on arrival with obvious respiratory distress. She increases 93% on 10 L.) Eyes: Bilateral Eye Normal Inspection, Bilateral Eye PERRL, Bilateral Eye EOMI HEENT: PERRL/EOMI, normal ENT inspection Respiratory: respiratory distress, accessory muscle use Cardiovascular: regular rate, rhythm, no murmur Gastrointestinal: normal bowel sounds, non tender, soft Extremities: normal range of motion, non-tender Neurologic/Psychiatric: alert, normal mood/affect, oriented x 3 Skin: normal color, warm/dry Progress/Results/Core Measures Suspected Sepsis SIRS Temperature: Pulse: Respiratory Rate: Laboratory Tests 04/04/21 17:40: White Blood Count 8.4 Blood Pressure / Mean: Laboratory Tests 04/04/21 17:40: Creatinine 1.64H, Platelet Count 204, Total Bilirubin 0.6 Results/Orders Lab Results Laboratory Tests Test 04/04/21 17:40 Range/Units White Blood Count 8.4 4.3-11.0 10^3/uL Red Blood Count 4.88 3.80-5.11 10^6/uL Hemoglobin 13.5 11.5-16.0 g/dL Hematocrit 43 35-52 % Mean Corpuscular Volume 88 80-99 fL Mean Corpuscular Hemoglobin 28 25-34 pg Mean Corpuscular Hemoglobin Concent 32 32-36 g/dL Red Cell Distribution Width 14.1 10.0-14.5 % Platelet Count 204 130-400 10^3/uL Mean Platelet Volume 10.3 9.0-12.2 fL Immature Granulocyte % (Auto) 1 % Neutrophils (%) (Auto) 61 42-75 % Lymphocytes (%) (Auto) 28 12-44 % Monocytes (%) (Auto) 10 0-12 % Eosinophils (%) (Auto) 0 0-10 % Basophils (%) (Auto) 0 0-10 % Neutrophils # (Auto) 5.1 1.8-7.8 10^3/uL Lymphocytes # (Auto) 2.3 1.0-4.0 10^3/uL Monocytes # (Auto) 0.9 0.0-1.0 10^3/uL Eosinophils # (Auto) 0.0 0.0-0.3 10^3/uL Basophils # (Auto) 0.0 0.0-0.1 10^3/uL Immature Granulocyte # (Auto) 0.1 0.0-0.1 10^3/uL D-Dimer 0.72 H 0.00-0.49 UG/ML Sodium Level 132 L 135-145 MMOL/L Potassium Level 4.5 3.6-5.0 MMOL/L Chloride Level 102 98-107 MMOL/L Carbon Dioxide Level 19 L 21-32 MMOL/L Anion Gap 11 5-14 MMOL/L Blood Urea Nitrogen 24 H 7-18 MG/DL Creatinine 1.64 H 0.60-1.30 MG/DL Estimat Glomerular Filtration Rate 31 BUN/Creatinine Ratio 15 Glucose Level 180 H 70-105 MG/DL Calcium Level 8.0 L 8.5-10.1 MG/DL Corrected Calcium 8.8 8.5-10.1 MG/DL Total Bilirubin 0.6 0.1-1.0 MG/DL Aspartate Amino Transf (AST/SGOT) 36 H 5-34 U/L Alanine Aminotransferase (ALT/SGPT) 34 0-55 U/L Alkaline Phosphatase 78 40-136 U/L C-Reactive Protein High Sensitivity 5.46 H 0.00-0.50 MG/DL B-Type Natriuretic Peptide 125.6 H <100.0 PG/ML Total Protein 6.1 L 6.4-8.2 GM/DL Albumin 3.0 L 3.2-4.5 GM/DL Procalcitonin 0.08 <0.10 NG/ML My Orders Orders - MARSHA NOONAN MANAGER PRODUCT Cbc With Automated Diff (04/04/21 17:28) Comprehensive Metabolic Panel (04/04/21 17:28) Bnp [place] (04/04/21 17:28) Fibrin Degradation Products (04/04/21 17:28) Ekg Tracing (04/04/21 17:28) Procalcitonin (Pct) (04/04/21 17:28) Chest 1 View, Ap/Pa Only (04/04/21 17:28) Ed Iv/Invasive Line Start (04/04/21 17:28) Hs C Reactive Protein (04/04/21 17:28) Vapotherm - Admin Rt Rfs (04/04/21 18:08) Cefepime Injection (Maxipime Injection) (04/04/21 18:15) Azithromycin Injection (Zithromax Inject (04/04/21 18:15) Dexamethasone Injection (Decadron Inje (04/04/21 18:15) Medications Given in ED Current Medications Medications Dose Ordered Sig/Sandra Route Start Time Stop Time Status Last Admin Dose Admin Cefepime HCl 1000 mg/Sodium Chloride 50 ml @ 100 mls/hr ONCE ONCE IV 04/04/21 18:15 04/04/21 18:44 DC 04/04/21 18:42 100 MLS/HR Vital Signs/I&O 04/04/21 18:29 Pulse Ox 97 O2 Delivery Vapotherm O2 Flow Rate 30.00 FiO2 60 Capillary Refill : Departure Communication (Admissions) Family Conversation EKG shows sinus rhythm at 73 QTC of 429 ms, QRS 94 ms, no ST segment change, no ectopy NAME: KENYATTA MARCUS [facility] REC#: [id number] PT STATUS: REG ER : 1945 PHYSICIAN: MARSHA NOONAN APRN ADMIT DATE: 04/04/21/ER Draft Date of Exam:04/04/21 CHEST 1 VIEW, AP/PA ONLY EXAMINATION: Chest 1 view. HISTORY: Cough, Covid positive. COMPARISON: 04/02/2021. FINDINGS: Heart size and pulmonary vasculature are normal. There are increased diffuse bilateral hazy and interstitial opacities. No pleural effusion or pneumothorax. The osseous structures are intact. IMPRESSION: Increasing interstitial opacities throughout both lungs compatible with history of Covid 19 and pneumonia. Dictated on workstation # [id number] Dict: 04/04/21 1756 Trans: 04/04/21 1800 [facility] [id number] Interpreted by: ELSIE JUNIOR DO Electronically signed by: Impression Primary Impression: Hypoxia Additional Impression: COVID-19 Disposition: ADMITTED INPATIENT Condition: Stable Admissions Decision to Admit Reason: Admit from ER (General) Decision to Admit/Date: Apr 04, 2021 Time/Decision to Admit Time: 18:48 Departure-Patient Inst. Referrals: YANELI RIVER MD (PCP/Family) Primary Care Physician MARSHA NOONAN APRN Apr 04, 2021 17:45
[2021-04-04 17:55] LABS: BASOPHILS % (AUTO) 0 % (0-10); EOSINOPHILS % (AUTO) 0 % (0-10); HEMATOCRIT 43 % (35-52); HEMOGLOBIN 13.5 g/dL (11.5-16.0); LYMPHOCYTES # (AUTO) 2.3 10^3/uL (1.0-4.0); LYMPHOCYTES % (AUTO) 28 % (12-44); MEAN CORPUSCULAR HEMOGLOBIN 28 pg (25-34); MEAN CORPUSCULAR HGB CONC 32 g/dL (32-36); MEAN CORPUSCULAR VOLUME 88 fL (80-99); MEAN PLATELET VOLUME 10.3 fL (9.0-12.2); MONOCYTES # (AUTO) 0.9 10^3/uL (0.0-1.0); MONOCYTES % (AUTO) 10 % (0-12); NEUTROPHILS # (AUTO) 5.1 10^3/uL (1.8-7.8); NEUTROPHILS % (AUTO) 61 % (42-75); PLATELET COUNT 204 10^3/uL (130-400); WHITE BLOOD COUNT 8.4 10^3/uL (4.3-11.0)
--- NOTE | 2021-04-04 18:00 | Diagnostic Imaging Report ---
EXAMINATION: Chest 1 view. HISTORY: Cough, Covid positive. COMPARISON: 04/02/2021. FINDINGS: Heart size and pulmonary vasculature are normal. There are increased diffuse bilateral hazy and interstitial opacities. No pleural effusion or pneumothorax. The osseous structures are intact. IMPRESSION: Increasing interstitial opacities throughout both lungs compatible with history of Covid 19 and pneumonia. Dictated by: Dictated on workstation # [id number]
[2021-04-04 18:03] LABS: POTASSIUM 4.5 MMOL/L (3.6-5.0)
[2021-04-04 18:05] LABS: TOTAL PROTEIN 6.1 GM/DL (6.4-8.2)
[2021-04-04 18:07] LABS: BILIRUBIN,TOTAL 0.6 MG/DL (0.1-1.0)
[2021-04-04 18:09] LABS: CREATININE SERUM 1.64 MG/DL (0.60-1.30)
[2021-04-04] MEDS ORDERED: CEFEPIME INJECTION 1,000 MG in NS (IVPB) 50 ML IV ONE (18:15)
[2021-04-04] MEDS ORDERED: AZITHROMYCIN INJECTION 500 MG in NS (IVPB) 250 ML IV ONE (18:15)
[2021-04-04 19:25] LABS: ABG BASE EXCESS -1.2 MMOL/L (-2.5-2.5); ABG OXYGEN SATURATION 42 % (94-100); ABG PCO2 38 MMHG (35-45); ABG PH 7.39 (7.37-7.43); ABG TCO2 24.2 MMOL/L (21.0-31.0)
[2021-04-04 19:27] LABS: ABG PO2 30 MMHG (79-93); ALLENS TEST YES-POS
[2021-04-04 19:28] LABS: INSPIRED O2 30; PATIENT TEMP 37; VENTILATOR NO
[2021-04-04] MEDS ORDERED: ONDANSETRON 4 MG/5 ML ORAL SOLN (ZOFRAN) 5 ML PO PRN (20:30)
[2021-04-04] MEDS ORDERED: guaiFENesin/CODEINE (ROBITUSSIN AC) 10ML UDC PO PRN (20:30)
[2021-04-04] MEDS ORDERED: ACETAMINOPHEN 325 MG TABLET PO PRN (20:30)
[2021-04-04] MEDS ORDERED: ONDANSETRON 4 MG/2 ML (SDV) Z0FRAN IV PRN (20:30)
[2021-04-04] MEDS ORDERED: ACETAMINOPHEN 650 MG SUPP (TYLENOL) PR PRN (20:30)
--- NOTE | 2021-04-04 20:44 | Tele-ICU Progress Note ---
Progress Note 75F, HTN, DM, obese, unvaccinated, diagnosed with COVID at OSH ER yesterday presented with worsening respiratory distress. SpO2 68%RA. Currently on vapotherm 60%/30L with SpO22 95%, HR 66, BP 141/71. She is tachypneic and appears in mild distress but not particularly labored. At that point in the assessment I took another call. On turning my attention back, patient had fallen asleep and had SpO2 80% and dusky appearance of lips.. - Hypoxia: secondary to COVID PNA, likely compounded by sleep apnea. Had been oxygenating adequately on heated high flow with moderate needs. Will start with CPAP to treat CASSIUS. If inadequate, escalate to BiPap. Of note, SpO2 back to 95% with awakening, prior to initiation of Cpap - COVID pna: initiated on decadron, cefepime, azithro - CKD: Creatinin 1.6, baseline 1.3-2 over past year. Avoid hypotension, nephrotoxins and monitor renal function. Focused Exam Height, Weight, BMI Height: '" Weight: lbs. oz. kg; 46.00 BMI Method: KRISHNA VILLA MD Apr 04, 2021 20:44
[2021-04-04 20:49] VITALS: BP 103/77
[2021-04-04] MEDS ORDERED: CEFEPIME INJECTION 2,000 MG in NS (IVPB) 50 ML IV SCH (21:00)
[2021-04-04] MEDS: guaiFENesin (MUCINEX) 600 MG TAB PO SCH (21:13)
[2021-04-04] MEDS ORDERED: ENOXAPARIN 40 MG/0.4 ML (LOVENOX) SYR ONE (21:50)
[2021-04-04] MEDS ORDERED: CEFEPIME 1 GM/10 ML (MAXIPIME) VIAL ONE (21:51)
[2021-04-04] MEDS ORDERED: NS (IVPB) 50 ML ONE (21:51)
[2021-04-04] MEDS: LACTATED RINGERS 1,000 ML IV SCH (21:58)
[2021-04-04] MEDS: ENOXAPARIN 40 MG/0.4 ML (LOVENOX) SYR SC SCH (21:59)
[2021-04-04] MEDS: CEFEPIME 1,000 MG/NS 50 ML IVPB IV SCH ×2 (23:27)
[2021-04-05 05:10] LABS: ABG BASE EXCESS -3.9 MMOL/L (-2.5-2.5); ABG OXYGEN SATURATION 97 % (94-100); ABG PCO2 33 MMHG (35-45); ABG PO2 82 MMHG (79-93); ABG TCO2 21.4 MMOL/L (21.0-31.0)
[2021-04-05 05:14] LABS: ALLENS TEST YES-POS; INSPIRED O2 35%; PATIENT TEMP 35.4; VENTILATOR NO
[2021-04-05 05:27] LABS: BASOPHILS % (AUTO) 0 % (0-10); EOSINOPHILS % (AUTO) 0 % (0-10); HEMATOCRIT 44 % (35-52); LYMPHOCYTES # (AUTO) 1.4 10^3/uL (1.0-4.0); LYMPHOCYTES % (AUTO) 25 % (12-44); MEAN CORPUSCULAR HEMOGLOBIN 27 pg (25-34); MEAN CORPUSCULAR HGB CONC 32 g/dL (32-36); MEAN CORPUSCULAR VOLUME 85 fL (80-99); MEAN PLATELET VOLUME 10.7 fL (9.0-12.2); MONOCYTES # (AUTO) 0.3 10^3/uL (0.0-1.0); MONOCYTES % (AUTO) 6 % (0-12); NEUTROPHILS # (AUTO) 3.9 10^3/uL (1.8-7.8); NEUTROPHILS % (AUTO) 68 % (42-75); PLATELET COUNT 180 10^3/uL (130-400); WHITE BLOOD COUNT 5.7 10^3/uL (4.3-11.0)
[2021-04-05 06:08] LABS: ALBUMIN 3.1 GM/DL (3.2-4.5); POTASSIUM 4.5 MMOL/L (3.6-5.0)
[2021-04-05] MEDS: POTASSIUM CL 10MEQ/50ML IVPB 50 ML IV SCH (06:09)
--- NOTE | 2021-04-05 06:09 | History & Physical-Hospitalist ---
History of Present Illness HPI/Chief Complaint Chief complaint: Acute on chronic hypoxic respiratory failure with COVID-19 pneumonia History present illness: This is a 75-year-old white female clinic patient of [facility] who has a history of morbid obesity with BMI of 49 who presents to the ER with shortness of breath. She was diagnosed with Covid and she is extremely high risk for intubation. She will think about Actemra after I discussed it with her. Patient's morbid obesity and chronic hypercapnic and hypoxic respiratory failure will place her at risk so she remains in the ICU. Vapotherm maintained but needs BiPAP. Source: patient, RN/MD Exam Limitations: no limitations Date Seen 04/05/21 Time Seen by a Provider: 10:00 Attending Physician Jahaira Romero DO PCP Papi Zarate MD Referring Physician Date of Admission Apr 04, 2021 at 18:55 Home Medications & Allergies Home Medications Reviewed patient Home Medication Reconciliation performed by pharmacy medication reconciliations thermoplastic technician and/or nursing. Patients Allergies have been reviewed. Allergies Allergies Coded Allergies No Known Drug Allergies (Unverified04/17/19) Past Bxpkodu-Jralca-Eaikhp Hx Patient Social History Marrital Status: single Employed/Student: retired Tobacco Use?: No Smoking Status: Never a Smoker Use of E-Cig and/or Vaping dev: No Substance use?: No Alcohol Use?: No Pt feels they are or have been: No Immunizations Up To Date Date of Influenza Vaccine: Jan 10, 2021 First/Initial COVID19 Vaccinat: N/A Second COVID19 Vaccination Babatunde: N/A Seasonal Allergies Seasonal Allergies: No Current Status status: No status: No Advance Directives: No Advance Directive Location: Home Communicates: Verbally Primary Language: Burmese Preferred Spoken Language: Burmese Is interpretation needed?: No Sensory deficits: Vision impairment Implanted or Applied Medical D: CPAP Past Medical History Surgeries: Appendectomy, Gallbladder, Hysterectomy, Nose Currently Using CPAP: No Currently Using BIPAP: No High Cholesterol, Hypertension Headaches /Migraines, Neuropathy, Stroke SVP OPERATIONS History: Hysterectomy Sexually Transmitted Disease: No HIV/AIDS: No Arthritis Hypothyroidsim, Diabetes, Non-Insulin dep Loss of Vision: Denies Hearing Impairment: Denies Skin What Type of Treatment Did You: Surgical Intervention Sleep Difficulties, Anxiety, Depression Blood Disorders: No Family Medical History Lung Disease, Other Conditions/Hx Review of Systems ROS-Unable to Obtain: Respiratory distress Constitutional: see HPI Physical Exam Physical Exam Vital Signs Vital Signs - First Documented 04/04/21 18:29 FiO2 60 Capillary Refill : Less Than 3 Seconds Height, Weight, BMI Height: '" Weight: lbs. oz. kg; 46.05 BMI Method: General Appearance: Anxious, Chronically ill, Mild Distress Eyes: Right Eye Normal Inspection, Right Eye PERRL HEENT: PERRL/EOMI, Normal ENT Inspection, Pharynx Normal, Moist Mucous Membranes Neck: Full Range of Motion, Normal Inspection, Non Tender Respiratory: Chest Non Tender, Lungs Clear, Normal Breath Sounds, No Respiratory Distress, Accessory Muscle Use, Decreased Breath Sounds Cardiovascular: Regular Rate, Rhythm, No Edema, No Gallop, No JVD, No Murmur, Normal Peripheral Pulses Gastrointestinal: Normal Bowel Sounds, No Organomegaly, No Pulsatile Mass, Non Tender, Soft Back: Normal Inspection, No CVA Tenderness, No Vertebral Tenderness Extremity: Normal Capillary Refill, Normal Inspection, Normal Range of Motion, Non Tender, No Calf Tenderness, No Pedal Edema Neurologic/Psychiatric: Alert, Oriented x3, No Motor/Sensory Deficits, Normal Mood/Affect Skin: Normal Color, Warm/Dry Lymphatic: No Adenopathy Results Results/Procedures Labs Laboratory Tests 04/04/21 17:40 04/05/21 04:55 Patient resulted labs reviewed. Assessment/Plan Admission Diagnosis Assessment: Acute on chronic hypoxic hypercapnic respiratory failure COVID-19 pneumonia Super morbid obesity BMI of 49 Diabetes mellitus Hypothyroidism Plan: Vapotherm BiPAP ICU Admission Status: Inpatient Order (span 2 midnights) Reason for Inpatient Admission: Respiratory failure Diagnosis/Problems Diagnosis/Problems (1) Pneumonia due to COVID-19 virus Status: Acute (2) Hypoxia Status: Acute JAHAIRA ROMERO DO Apr 05, 2021 06:09
[2021-04-05 06:10] LABS: CALCIUM 8.2 MG/DL (8.5-10.1)
[2021-04-05] MEDS: KCL 20 MEQ TAB (K-DUR) PO SCH (06:10)
[2021-04-05 06:11] LABS: TOTAL PROTEIN 6.3 GM/DL (6.4-8.2)
[2021-04-05 06:13] LABS: BILIRUBIN,TOTAL 0.6 MG/DL (0.1-1.0)
[2021-04-05 06:14] LABS: PHOSPHORUS 3.1 MG/DL (2.3-4.7)
[2021-04-05 06:15] LABS: CREATININE SERUM 1.4 MG/DL (0.60-1.30)
[2021-04-05 06:18] LABS: MAGNESIUM 2.1 MG/DL (1.6-2.4)
[2021-04-05] MEDS: MAGNESIUM 1 GM/100 ML IVPB 100 ML IV SCH (06:22)
[2021-04-05] MEDS: inSUlin ASPART (NovoLOG) 1 UNIT/0.01 ML (CHARGE PER UNIT) SQ SCH ×4 (06:33→20:57)
--- NOTE | 2021-04-05 07:26 | Diagnostic Imaging Report ---
INDICATION: COVID pneumonia COMPARISON: 04/04/2021 TECHNIQUE: Single radiograph of the chest dated 04/05/2021. FINDINGS: The cardiac silhouette is mildly enlarged. Mild central pulmonary vascular congestion. Significant bilateral mixed interstitial and airspace opacities, slightly worsened within the right midlung. Stable elevation of the right hemidiaphragm. No enlargement of the pleural effusion. No pneumothorax. No acute osseous abnormality. IMPRESSION: Slightly worsened significant right greater than left basilar infiltrates. Mild cardiomegaly with mild central pulmonary vascular congestion. Dictated by: Dictated on workstation # [id number]
[2021-04-05] MEDS: CEFEPIME 1,000 MG/NS 50 ML IVPB IV SCH ×6 (08:37→23:08)
[2021-04-05] MEDS: guaiFENesin (MUCINEX) 600 MG TAB PO SCH ×2 (08:37→20:12)
[2021-04-05] MEDS: ENOXAPARIN 40 MG/0.4 ML (LOVENOX) SYR SC SCH ×2 (08:37→20:12)
--- NOTE | 2021-04-05 13:45 | Tele-ICU Progress Note ---
Subjective Date Seen by a Provider: Apr 05, 2021 Time Seen by a Provider: 13:39 Sepsis Event Evaluation Height, Weight, BMI Height: '" Weight: lbs. oz. kg; 46.05 BMI Method: Exam Exam Patient acknowledged, consented, and participated in this virtual visit which was conducted using real time audio/video Vital Signs Date Time Temp Pulse Resp B/P (MAP) Pulse Ox O2 Delivery O2 Flow Rate FiO2 04/05/21 13:00 47 154/81 91 Vapotherm 30.00 65.00 04/05/21 12:53 50 04/05/21 12:00 48 140/76 92 Vapotherm 30.00 65.00 04/05/21 11:00 50 143/73 92 Vapotherm 30.00 65.00 04/05/21 10:00 49 153/94 94 Vapotherm 30.00 65.00 04/05/21 09:00 52 155/77 92 Vapotherm 30.00 65.00 04/05/21 08:00 43 156/81 95 Vapotherm 30.00 65.00 04/05/21 08:00 36.2 04/05/21 07:00 45 04/05/21 07:00 47 142/70 95 Vapotherm 30.00 65.00 04/05/21 06:10 97 Vapotherm 30.00 65 04/05/21 06:04 Vapotherm 30.00 65.00 04/05/21 06:00 45 149/82 95 NIV CPAP 35.00 04/05/21 05:00 45 149/82 95 NIV CPAP 35.00 04/05/21 04:00 46 145/79 94 NIV CPAP 35.00 04/05/21 03:43 92 NIV CPAP 35.00 04/05/21 03:43 35.2 NIV CPAP 35.00 04/05/21 03:23 68 21 93 35.00 04/05/21 03:00 47 141/77 94 NIV CPAP 35.00 04/05/21 02:00 49 137/73 95 NIV CPAP 35.00 04/05/21 01:00 50 04/05/21 01:00 55 138/76 95 NIV CPAP 35.00 04/05/21 00:00 54 137/75 95 NIV CPAP 35.00 04/04/21 23:56 95 NIV CPAP 35.00 04/04/21 23:45 37.1 NIV CPAP 35.00 04/04/21 23:00 55 136/71 95 NIV CPAP 35.00 04/04/21 22:25 37.1 04/04/21 22:08 NIV CPAP 35.00 04/04/21 22:00 65 18 139/72 98 NIV CPAP 50.00 04/04/21 21:59 38.4 04/04/21 21:00 63 30 110/79 96 NIV CPAP 50.00 04/04/21 20:49 64 26 98 60.00 04/04/21 20:45 65 35 103/77 100 NIV CPAP 50.00 04/04/21 20:41 NIV CPAP 50.00 04/04/21 20:37 Vapotherm 40.00 100.00 04/04/21 20:30 68 36 131/67 100 Vapotherm 30.00 60.00 04/04/21 20:15 66 33 141/71 93 Vapotherm 30.00 60.00 04/04/21 20:13 70 04/04/21 20:04 96 Vapotherm 30.00 60 04/04/21 20:00 38.5 Vapotherm 30.00 60.00 04/04/21 20:00 94 Vapotherm 30.00 60 04/04/21 19:44 38.0 90 21 154/94 96 Vapotherm 04/04/21 18:29 97 Vapotherm 30.00 60 04/04/21 17:25 OxyMask 15.00 04/04/21 17:25 38.1 75 24 145/84 (104) 93 OxyMask 15.00 I & O 04/05/21 07:00 Intake Total 650 ml Output Total 900 ml Balance -250 ml Height & Weight Height: '" Weight: lbs. oz. kg; 46.05 BMI Method: General Appearance: No Apparent Distress Capillary Refill: Less Than 3 Seconds Gastrointestinal: normal bowel sounds, non tender, soft Results Lab Laboratory Tests 04/04/21 17:40 04/05/21 04:55 Assessment/Plan Assessment/Plan (Tele-ICU Physician , Progress Note ) Available chart/ vitals / labs / Images reviewed Video assessment done using teleICU camera, rest of exam as per RN Discussed with RN , EXAM PER RN Events overnight : Afebrile FiO2 - vt I/O = Drips: Pressors: , hemodynamically stable Consultants: Hospital course: 04/04 - COVID vapotherm 60%/30L A/P AHRF / ARDS due to severe COVID19 -vapotherm 65 %/30L -prone position if able - conservative fluid strategy (aim for even or negative fluid balance GRFI-Soaexwtbyqt-4/COVID-19 PNA ( Symptom onset ~"month " DX unvaccinted --Dexamethasone -Hypercoagulable state , DDIMER= 0.7 on -> lovenox ppx dose , follow D dimer Monitor for superimposed bact PNA -PCT negative , ceftriaxone and z-max 04/03 BARB - mild monitor Hyperglycemia / Diabetes Mellitus - ISS , close f/up on steroids CASSIUS , suspected obesity Lines : (Central Line Necessity Reviewed) Zuniga: OG: Nutrition: Analgesia: Anxiety/ delirium VTE Prophylaxis: maxim 40 Stress Ulcer Prophylaxis: po Plans in collaboration with bedside consultants and IM MDs. Discussed with RN to reach out if any questions or concerns A total of 31 minutes of critical care time was devoted to this patient today, required to treat and/or prevent further deterioration of critical care condition ( as above) . EDI SPAIN MD Apr 05, 2021 13:45
[2021-04-05] MEDS: LACTATED RINGERS 1,000 ML IV SCH (16:35)
[2021-04-05] MEDS: AZITHROMYCIN INJECTION 500 MG in NS (IVPB) 250 ML IV SCH (20:11)
[2021-04-06 05:21] LABS: ALBUMIN 2.8 GM/DL (3.2-4.5); POTASSIUM 4.9 MMOL/L (3.6-5.0)
[2021-04-06 05:23] LABS: CALCIUM 7.9 MG/DL (8.5-10.1)
[2021-04-06 05:26] LABS: BILIRUBIN,TOTAL 0.4 MG/DL (0.1-1.0)
[2021-04-06] MEDS: KCL 20 MEQ TAB (K-DUR) PO SCH (05:26)
[2021-04-06] MEDS: POTASSIUM CL 10MEQ/50ML IVPB 50 ML IV SCH (05:26)
[2021-04-06] MEDS: MAGNESIUM 1 GM/100 ML IVPB 100 ML IV SCH (05:26)
[2021-04-06 05:27] LABS: PHOSPHORUS 1.7 MG/DL (2.3-4.7)
[2021-04-06 05:28] LABS: CREATININE SERUM 1.37 MG/DL (0.60-1.30)
[2021-04-06 05:30] LABS: MAGNESIUM 2.1 MG/DL (1.6-2.4)
[2021-04-06] MEDS: inSUlin ASPART (NovoLOG) 1 UNIT/0.01 ML (CHARGE PER UNIT) SQ SCH ×4 (05:52→21:47)
--- NOTE | 2021-04-06 07:03 | Progress Note - Hospitalist ---
Subjective HPI/CC On Admission Date Seen by Provider: Apr 06, 2021 Time Seen by Provider: 11:45 Chief complaint: Acute on chronic hypoxic respiratory failure with COVID-19 pneumonia History present illness: This is a 75-year-old white female clinic patient of [facility] who has a history of morbid obesity with BMI of 49 who presents to the ER with shortness of breath. She was diagnosed with Covid and she is extremely high risk for intubation. She will think about Actemra after I discussed it with her. Patient's morbid obesity and chronic hypercapnic and hypoxic respiratory failure will place her at risk so she remains in the ICU. Vapotherm maintained but needs BiPAP. Subjective/Events-last exam Patient very anxious Midline was placed since we lost IV access Patient very anxious whenever we even try to attempt to draw blood IV medication maintained Moving to cardiac stepdown unit Review of Systems General: Fatigue, Malaise Pulmonary: Dyspnea, Cough Objective Exam Vital Signs Vital Signs Date Time Temp Pulse Resp B/P (MAP) Pulse Ox O2 Delivery O2 Flow Rate FiO2 04/07/21 04:00 36.2 62 14 162/77 91 Vapotherm 25.00 50.00 04/07/21 01:51 50 Capillary Refill : Less Than 3 Seconds General Appearance: No Apparent Distress, WD/WN, Chronically ill Respiratory: Lungs Clear, Normal Breath Sounds, Decreased Breath Sounds Cardiovascular: Regular Rate, Rhythm Neurologic/Psychiatric: Alert, Oriented x3 Results/Procedures Lab Patient resulted labs reviewed. Assessment/Plan Assessment and Plan Assess & Plan/Chief Complaint Assessment: Acute on chronic hypoxic hypercapnic respiratory failure COVID-19 pneumonia Super morbid obesity BMI of 49 Diabetes mellitus Hypothyroidism Anxiety Plan: Vapotherm BiPAP ICU 04/06/2021: Transfer to cardiac stepdown unit Anxiety management Diagnosis/Problems Diagnosis/Problems (1) Pneumonia due to COVID-19 virus Status: Acute (2) Hypoxia Status: Acute LEFTY QUIÑONES DO Apr 06, 2021 07:03
--- NOTE | 2021-04-06 07:27 | Diagnostic Imaging Report ---
EXAMINATION: Chest 1 view HISTORY: COVID 19 COMPARISON: 04/05/2021 FINDINGS: Stable size of the cardiac silhouette with prominent pulmonary vasculature. There are mild interstitial opacities seen throughout both lungs. No significant pleural effusion or pneumothorax. The osseous structures are intact. IMPRESSION: 1. Stable patchy interstitial opacities within both lungs compatible with history of COVID 19 and pneumonia. Dictated by: Dictated on workstation # [id number]
[2021-04-06] MEDS: guaiFENesin (MUCINEX) 600 MG TAB PO SCH ×2 (09:15→20:22)
[2021-04-06] MEDS: ENOXAPARIN 40 MG/0.4 ML (LOVENOX) SYR SC SCH ×2 (09:16→20:23)
[2021-04-06] MEDS ORDERED: ALPRAZolam 0.25 MG (XANAX) TAB ONE (09:49)
[2021-04-06] MEDS: CEFEPIME 1,000 MG/NS 50 ML IVPB IV SCH ×4 (10:46→17:49)
[2021-04-06] MEDS ORDERED: NON-FORMULARY MEDICATION 1 EA EA (Hydroxyzine HCl 50 MG) PO PRN (11:45)
[2021-04-06] MEDS ORDERED: ONDANSETRON 4 MG (ZOFRAN) ORAL DISSOLVE TAB PO PRN (11:45)
[2021-04-06] MEDS ORDERED: NON-FORMULARY MEDICATION 1 EA EA (Ondansetron HCl 4 MG) PO PRN (11:45)
[2021-04-06] MEDS ORDERED: hydrOXYzine (VISTARIL/ATARAX) 25 MG capsule/tablet PO PRN (12:00)
--- NOTE | 2021-04-06 12:12 | Consultation - Surgery ---
History of Present Illness History of Present Illness Patient Consulted On(joao/time) 04/06/21 12:06 Date Seen by Provider: Apr 06, 2021 Time Seen by Provider: 12:06 History of Present Illness Consult requested by Dr. Romero for for line placement. Patient 75-year-old female who presented with Covid pneumonia having respiratory issues. She is been placed in intensive care unit. Patient with high anxiety. Patient has had difficulty getting IV access. Pulled a couple of IVs as well. Patient needing a line placement for further management. Patient high risk for intubation. Allergies and Home Medications Allergies Coded Allergies: No Known Drug Allergies (Unverified , 04/17/19) Patient Home Medication List Home Medication List Reviewed: Yes Atorvastatin Calcium (Atorvastatin Calcium) 40 Mg Tablet, 40 MG PO DAILY, (Reported) Entered as Reported by: TO CHACON on 04/18/19943 Last Action: Held Carvedilol (Coreg) 25 Mg Tab, 25 MG PO BID, (Reported) Entered as Reported by: TO CHACON on 04/18/19943 Last Action: Converted Desvenlafaxine (Desvenlafaxine ER) 100 Mg Tab.er.24h, 100 MG PO DAILY, (Reported) Entered as Reported by: KHLOE FORD on 01/21/21 104 Last Action: Converted Estradiol (Estrace Tablet) 0.5 Mg Tablet, 0.5 MG PO DAILY, (Reported) Entered as Reported by: TO CHACON on 04/18/19943 Last Action: Converted Glipizide (Glipizide) 10 Mg Tablet, 10 MG PO DAILY, (Reported) Entered as Reported by: TO CHACON on 04/18/19943 Last Action: Converted Hydrocodone/Acetaminophen (Hydrocodone-Acetamin 5-325 mg) 1 Each Tablet, 1 TAB PO Q8H PRN for PAIN-MODERATE (5-7) Prescribed by: AMANDA SHAFER on 02/26/21 1149 Last Action: Continued Hydroxyzine HCl (Hydroxyzine HCl) 50 Mg Tablet, 50 MG PO BID PRN for ANXIETY, (Reported) Entered as Reported by: KHLOE FORD on 01/21/21 1048 Last Action: Converted Levothyroxine Sodium (Levothyroxine Sodium) 75 Mcg Tablet, 75 MCG PO DAILY, (Reported) Entered as Reported by: TO CHACON on 04/18/19 0944 Last Action: Continued Ondansetron HCl (Ondansetron HCl) 4 Mg Tablet, 4 MG PO Q4H PRN for NAUSEA/VOMITING, (Reported) Entered as Reported by: KHLOE FORD on 01/21/21 1048 Last Action: Converted Tizanidine HCl (Tizanidine HCl) 2 Mg Tablet, 2 MG PO BID, (Reported) Entered as Reported by: KHLOE FORD on 01/21/21 1048 Last Action: Converted Trazodone HCl (Trazodone HCl) 50 Mg Tablet, 50 MG PO HS PRN for SLEEP, (Reported) Entered as Reported by: ALYSSA VITAL on 02/20/21 1437 Last Action: Continued Verapamil HCl (Verapamil ER) 120 Mg Tablet.er, 120 MG PO DAILY, (Reported) Entered as Reported by: TO CHACON on 04/18/19943 Last Action: Converted Discontinued Medications Azithromycin (Azithromycin) 250 Mg Tablet, 250 MG PO DAILY Discontinued Reason: No Longer Taking Prescribed by: HUGO ROCHA on 04/02/21 1528 Last Action: Discontinued Past Xmqhlst-Ymyldg-Jfyown Hx Patient Social History Smoking Status: Never a Smoker 2nd Hand Smoke Exposure: No Recent Hopitalizations: No Alcohol Use?: No Have you traveled recently?: No Immunizations Up To Date Date of Influenza Vaccine: Jan 10, 2021 Seasonal Allergies Seasonal Allergies: No Surgeries History of Surgeries: Yes (GROWTH REMOVED FROM RIGHT YARSANI, NASAL SURGERY) Surgeries: Appendectomy, Gallbladder, Hysterectomy, Nose Respiratory History of Respiratory Disorde: No Cardiovascular History of Cardiac Disorders: Yes Cardiac Disorders: High Cholesterol, Hypertension Neurological History of Neurological Disord: Yes Neurological Disorders: Headaches /Migraines, Neuropathy, Stroke Reproductive System Sexually Transmitted Disease: No HIV/AIDS: No Female 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 Genitourinary History of Genitourinary Disor: No Gastrointestinal History of Gastrointestinal Di: No Musculoskeletal History of Musculoskeletal Dis: Yes Musculoskeletal Disorders: Arthritis Endocrine History of Endocrine Disorders: Yes Endocrine Disorders: Hypothyroidsim, Diabetes, Non-Insulin dep HEENT History of HEENT Disorders: Yes (WEARS GLASSES) Loss of Vision: Denies Hearing Impairment: Denies Cancer History of Cancer: Yes Cancer: Skin Psychosocial History of Psychiatric Problem: Yes Behavioral Health Disorders: Sleep Difficulties, Anxiety, Depression Integumentary History of Skin or Integumenta: No Blood Transfusions History of Blood Disorders: No Reviewed Nursing Assessment Reviewed/Agree w Nursing PMH: Yes Family Medical History Significant Family History: No Pertinent Family Hx, Lung Disease, Other Conditions/Hx Review of Systems-General Constitutional: No diaphoresis; weakness EENTM: No blurred vision, No double vision Respiratory: dyspnea on exertion, short of breath Cardiovascular: No chest pain, No palpitations Gastrointestinal: No abdominal pain, No nausea, No vomiting Genitourinary: No decreased output, No discharge Musculoskeletal: No back pain, No joint pain Skin: No change in color, No change in hair/nails Psychiatric/Neurological: Anxiety; Denies Depressed, Denies Emotional Problems All Other Systems Reviewed Negative Unless Noted: Yes (Negative excepted noted.) Physical Exam-General Problems Physical Exam Vital Signs Vital Signs - First Documented 04/04/21 18:29 FiO2 60 Capillary Refill : Less Than 3 Seconds General Appearance: mild distress (Secondary to anxiety), obese HEENT: PERRL/EOMI, normal ENT inspection Neck: non-tender, supple Respiratory: chest non-tender, other (Tachypnea secondary to anxiety) Cardiovascular: regular rate, rhythm, no JVD Gastrointestinal: non tender, soft Rectal: deferred Back: no CVA tenderness, no vertebral tenderness Extremities: non-tender, no pedal edema Neurologic/Psychiatric: alert, normal mood/affect, oriented x 3 Skin: normal color, warm/dry Lymphatic: no adenopathy Data Review Labs Laboratory Tests 04/05/21 15:23: Glucometer 269H 04/05/21 20:39: Glucometer 296H 04/06/21 04:30: Sodium Level 135, Potassium Level 4.9, Chloride Level 108H, Carbon Dioxide Level 15L, Anion Gap 12, Blood Urea Nitrogen 19H, Creatinine 1.37H, Estimat Glomerular Filtration Rate 38, BUN/Creatinine Ratio 14, Glucose Level 365H, Calcium Level 7.9L, Corrected Calcium 8.9, Phosphorus Level 1.7L, Magnesium Level 2.1, Total Bilirubin 0.4, Aspartate Amino Transf (AST/SGOT) 24, Alanine Aminotransferase (ALT/SGPT) 30, Alkaline Phosphatase 88, C-Reactive Protein High Sensitivity 3.04H, Total Protein 6.0L, Albumin 2.8L 04/06/21 10:41: Glucometer 82 Assessment/Plan Assessment/Plan Assessment/Plan Acute on chronic respiratory failure Poor venous access COVID-19 pneumonia Super morbid obesity BMI of 49 Diabetes mellitus Hypothyroidism Patient is 75-year-old female with acute on chronic respiratory failure she has poor venous access has pulled a couple IVs already. Patient was discussed options. The safest access at this time would be a midline access. Patient understands risk and benefits. Ultrasound with successful placement. Will sign off please call if needed. Procedure: Left antecubital 18-gauge midline placement under ultrasound guidance The left arm was prepped and draped in sterile fashion. Ultrasound was used to isolate the left antecubital vein. Under direct visualization 18-gauge midline was able to access the vein the guidewire was inserted and the catheter was then advanced over the guidewire. The catheter was then secured and bandaged in usual fashion. Patient tolerated procedure well without any complications. ISAURO BOLIVAR DO Apr 06, 2021 12:12
--- NOTE | 2021-04-06 12:40 | Tele-ICU Progress Note ---
Subjective Date Seen by a Provider: Apr 06, 2021 Time Seen by a Provider: 12:40 Sepsis Event Evaluation Height, Weight, BMI Height: '" Weight: lbs. oz. kg; 46.05 BMI Method: Exam Exam Patient acknowledged, consented, and participated in this virtual visit which was conducted using real time audio/video Vital Signs Date Time Temp Pulse Resp B/P (MAP) Pulse Ox O2 Delivery O2 Flow Rate FiO2 04/06/21 12:32 36.6 04/06/21 12:00 55 33 148/81 95 Vapotherm 30.00 65.00 04/06/21 11:00 54 19 159/90 96 Vapotherm 30.00 65.00 04/06/21 10:00 53 12 144/70 92 Vapotherm 30.00 65.00 04/06/21 09:00 57 15 150/77 97 Vapotherm 30.00 65.00 04/06/21 08:00 70 27 154/86 95 Vapotherm 30.00 65.00 04/06/21 07:39 94 Vapotherm 30.00 65 04/06/21 07:39 36.1 04/06/21 07:00 53 04/06/21 07:00 48 28 167/87 95 Vapotherm 30.00 65.00 04/06/21 06:00 50 130/66 95 Vapotherm 30.00 65.00 04/06/21 05:00 53 141/69 92 Vapotherm 30.00 65.00 04/06/21 04:00 Vapotherm 30.00 65 04/06/21 04:00 50 151/73 96 Vapotherm 30.00 65.00 04/06/21 03:00 52 25 153/78 95 Vapotherm 30.00 65.00 04/06/21 02:00 53 31 146/69 93 Vapotherm 30.00 65.00 04/06/21 01:00 51 04/06/21 01:00 53 15 159/75 94 Vapotherm 30.00 65.00 04/06/21 00:00 53 135/77 92 Vapotherm 30.00 65.00 04/06/21 00:00 Vapotherm 35.00 60 04/05/21 23:09 36.3 04/05/21 23:00 56 163/73 94 Vapotherm 30.00 65.00 04/05/21 22:34 35.8 04/05/21 22:27 93 Vapotherm 30.00 65 04/05/21 22:00 56 165/89 94 Vapotherm 30.00 65.00 04/05/21 21:00 55 164/84 93 Vapotherm 30.00 65.00 04/05/21 20:03 55 144/85 93 Vapotherm 30.00 65.00 04/05/21 20:00 Vapotherm 35.00 60 04/05/21 19:41 36.2 59 174/70 Vapotherm 30.00 65.00 04/05/21 19:05 94 Vapotherm 30.00 65 04/05/21 19:00 53 04/05/21 18:00 68 25 153/104 92 Vapotherm 30.00 65.00 04/05/21 17:00 51 167/88 92 Vapotherm 30.00 65.00 04/05/21 16:00 93 NIV CPAP 35.00 60 04/05/21 16:00 51 152/79 95 Vapotherm 30.00 65.00 04/05/21 16:00 36.2 04/05/21 15:00 53 154/81 93 Vapotherm 30.00 65.00 04/05/21 14:00 48 133/81 95 Vapotherm 30.00 65.00 04/05/21 13:00 47 154/81 91 Vapotherm 30.00 65.00 04/05/21 12:53 50 I & O 04/06/21 07:00 Intake Total 1720 ml Output Total 700 ml Balance 1020 ml Height & Weight Height: '" Weight: lbs. oz. kg; 46.05 BMI Method: General Appearance: Anxious, Chronically ill, Mild Distress HEENT: PERRL/EOMI, Normal ENT Inspection, Pharynx Normal, Moist Mucous Membranes Neck: Full Range of Motion, Normal Inspection, Non Tender Respiratory: Chest Non Tender, Lungs Clear, Normal Breath Sounds, No Respiratory Distress, Accessory Muscle Use, Decreased Breath Sounds Cardiovascular: Regular Rate, Rhythm, No Edema, No Gallop, No JVD, No Murmur, Normal Peripheral Pulses Capillary Refill: Less Than 3 Seconds Gastrointestinal: non tender, soft Extremity: Normal Capillary Refill, Normal Inspection, Normal Range of Motion, Non Tender, No Calf Tenderness, No Pedal Edema Neurologic/Psychiatric: Alert, Oriented x3, No Motor/Sensory Deficits, Normal Mood/Affect Skin: Normal Color, Warm/Dry Lymphatic: No Adenopathy Results Lab Laboratory Tests 04/04/21 17:40 04/05/21 04:55 04/06/21 04:30 Assessment/Plan Assessment/Plan (Tele-ICU Physician , Progress Note ) Available chart/ vitals / labs / Images reviewed Video assessment done using teleICU camera, rest of exam as per RN Discussed with RN , EXAM PER RN Events overnight : paniack attach this am Afebrile FiO2 - vt I/O = Drips: Pressors: , hemodynamically stable Consultants: Hospital course: 04/04 - COVID vapotherm 60%/30L A/P AHRF / ARDS due to severe COVID19 -vapotherm 65 %/30L -prone position if able - conservative fluid strategy (aim for even or negative fluid balance [id number]-5/COVID-19 PNA ( Symptom onset ~"month " DX unvaccinted --Dexamethasone -Hypercoagulable state , DDIMER= 0.7 on -> lovenox ppx dose , follow D dimer Monitor for superimposed bact PNA -PCT negative , ceftriaxone and z-max 04/03 BARB - mild monitor Hyperglycemia / Diabetes Mellitus - ISS , close f/up on steroids CASSIUS , suspected obesity Lines : mid line 04/06 (Central Line Necessity Reviewed) Zuniga: void OG: Nutrition: po Analgesia: Anxiety/ delirium xanax VTE Prophylaxis: maxim 40 Stress Ulcer Prophylaxis: po Plans in collaboration with bedside consultants and IM MDs. Discussed with RN to reach out if any questions or concerns A total of 31 minutes of critical care time was devoted to this patient today, required to treat and/or prevent further deterioration of critical care condition ( as above) . EDI SPAIN MD Apr 06, 2021 12:40
[2021-04-06] MEDS: AZITHROMYCIN INJECTION 500 MG in NS (IVPB) 250 ML IV SCH (20:22)
[2021-04-06] MEDS: ALPRAZolam 0.25 MG (XANAX) TAB PO PRN (20:22)
[2021-04-06] MEDS ORDERED: NON-FORMULARY MEDICATION 1 EA EA (Carvedilol (Coreg) 25 MG) PO SCH (21:00)
[2021-04-07] MEDS: CEFEPIME 1,000 MG/NS 50 ML IVPB IV SCH ×8 (00:23→23:15)
[2021-04-07] MEDS: inSUlin ASPART (NovoLOG) 1 UNIT/0.01 ML (CHARGE PER UNIT) SQ SCH ×4 (05:26→21:57)
[2021-04-07 05:54] LABS: BASOPHILS % (AUTO) 0 % (0-10); EOSINOPHILS % (AUTO) 0 % (0-10); HEMATOCRIT 42 % (35-52); HEMOGLOBIN 13.8 g/dL (11.5-16.0); LYMPHOCYTES # (AUTO) 1.2 10^3/uL (1.0-4.0); LYMPHOCYTES % (AUTO) 7 % (12-44); MEAN CORPUSCULAR HEMOGLOBIN 27 pg (25-34); MEAN CORPUSCULAR HGB CONC 33 g/dL (32-36); MEAN CORPUSCULAR VOLUME 84 fL (80-99); MONOCYTES # (AUTO) 0.9 10^3/uL (0.0-1.0); MONOCYTES % (AUTO) 6 % (0-12); NEUTROPHILS # (AUTO) 14.3 10^3/uL (1.8-7.8); NEUTROPHILS % (AUTO) 86 % (42-75); PLATELET COUNT 280 10^3/uL (130-400); WHITE BLOOD COUNT 16.6 10^3/uL (4.3-11.0)
[2021-04-07 06:08] LABS: ALBUMIN 2.9 GM/DL (3.2-4.5); POTASSIUM 4.8 MMOL/L (3.6-5.0)
[2021-04-07 06:09] LABS: CALCIUM 8.2 MG/DL (8.5-10.1)
[2021-04-07 06:10] LABS: TOTAL PROTEIN 6.5 GM/DL (6.4-8.2)
[2021-04-07 06:12] LABS: BILIRUBIN,TOTAL 0.5 MG/DL (0.1-1.0)
[2021-04-07 06:14] LABS: CREATININE SERUM 1.15 MG/DL (0.60-1.30)
[2021-04-07 06:38] LABS: BAND NEUTROPHILS 2 %; LYMPHOCYTES % (MANUAL) 3 %; MONOCYTES % (MANUAL) 5 %; NEUTROPHILS % (MANUAL) 90 %; RBC MORPH NORMAL
--- NOTE | 2021-04-07 06:47 | Diagnostic Imaging Report ---
EXAMINATION: Chest 1 view HISTORY: Pneumonia. COVID infection. COMPARISON: 04/06/2021. FINDINGS: Stable hazy and patchy opacities throughout the lungs, greatest in the apices. No large pleural effusion or pneumothorax. Stable cardiac silhouette. IMPRESSION: 1. Stable pneumonia with the greatest involvement in the lung apices. Dictated by: Dictated on workstation # [id number]
[2021-04-07] MEDS: glipiZIDE 5 MG (GLUCOTROL) TAB PO SCH (06:48)
[2021-04-07] MEDS: LEVOTHYROXINE 75 MCG (LEVOTHROID) TABLET PO SCH (06:49)
[2021-04-07] MEDS: VENlafaxine XR 75 MG (EFFEXOR XR) CAP PO SCH (06:49)
[2021-04-07] MEDS ORDERED: NON-FORMULARY MEDICATION 1 EA EA (Glipizide 10 MG) PO SCH (09:00)
[2021-04-07] MEDS ORDERED: DESVENLAFAXINE 100 MG PO SCH (09:00)
[2021-04-07] MEDS ORDERED: NON-FORMULARY MEDICATION 1 EA EA (Verapamil HCl (Verapamil ER) 120 MG) PO SCH (09:00)
[2021-04-07] MEDS ORDERED: NON-FORMULARY MEDICATION 1 EA EA (Estradiol (Estrace Tablet) 0.5 MG) PO SCH (09:00)
[2021-04-07] MEDS: ALPRAZolam 0.25 MG (XANAX) TAB PO PRN ×2 (09:13→15:49)
[2021-04-07] MEDS: ESTRADIOL 1 MG TAB (ESTRACE) PO SCH (09:13)
[2021-04-07] MEDS: VERAPAMIL SR 240 MG (CALAN SR) TAB PO SCH (09:13)
[2021-04-07] MEDS: guaiFENesin (MUCINEX) 600 MG TAB PO SCH ×2 (09:13→21:32)
[2021-04-07] MEDS: ENOXAPARIN 40 MG/0.4 ML (LOVENOX) SYR SC SCH ×2 (09:14→21:11)
[2021-04-07] MEDS: HYDROcodone/APAP 5 MG/325 MG (LORTAB) TAB PO PRN (09:47)
--- NOTE | 2021-04-07 10:27 | Progress Note - Hospitalist ---
Subjective HPI/CC On Admission Date Seen by Provider: Apr 07, 2021 Time Seen by Provider: 10:00 Chief complaint: Acute on chronic hypoxic respiratory failure with COVID-19 pneumonia History present illness: This is a 75-year-old white female clinic patient of [facility] who has a history of morbid obesity with BMI of 49 who presents to the ER with shortness of breath. She was diagnosed with Covid and she is extremely high risk for intubation. She will think about Actemra after I discussed it with her. Patient's morbid obesity and chronic hypercapnic and hypoxic respiratory failure will place her at risk so she remains in the ICU. Vapotherm maintained but needs BiPAP. Subjective/Events-last exam Pt doing a lot better May be able to transfer to 4th floor Maintained on Vapotherm at 25 liters at 40% Seems like she is handling everything pretty well Less anxiety Review of Systems General: Fatigue, Malaise Pulmonary: Dyspnea, Cough Objective Exam Vital Signs Vital Signs Date Time Temp Pulse Resp B/P (MAP) Pulse Ox O2 Delivery O2 Flow Rate FiO2 04/08/21 04:00 36.9 48 21 190/85 91 Vapotherm 20.00 55.00 04/08/21 02:40 60 Capillary Refill : Less Than 3 Seconds General Appearance: WD/WN, Anxious, Chronically ill, Mild Distress, Obese Respiratory: Lungs Clear, Normal Breath Sounds, Decreased Breath Sounds Cardiovascular: Regular Rate, Rhythm Neurologic/Psychiatric: Alert, Oriented x3, No Motor/Sensory Deficits, Normal Mood/Affect Results/Procedures Lab Laboratory Tests 04/07/21 05:40 Patient resulted labs reviewed. Assessment/Plan Assessment and Plan Assess & Plan/Chief Complaint Assessment: Acute on chronic hypoxic hypercapnic respiratory failure COVID-19 pneumonia Super morbid obesity BMI of 49 Diabetes mellitus Hypothyroidism Anxiety Plan: Vapotherm BiPAP ICU 04/06/2021: Transfer to cardiac stepdown unit Anxiety management 04/07/2021: Vapotherm Anxiety treatment Diagnosis/Problems Diagnosis/Problems (1) Pneumonia due to COVID-19 virus Status: Acute (2) Hypoxia Status: Acute LEFTY QUIÑONES DO Apr 07, 2021 10:27
[2021-04-07] MEDS: AZITHROMYCIN INJECTION 500 MG in NS (IVPB) 250 ML IV SCH (21:13)
[2021-04-08] MEDS ORDERED: amLODIPine 5 MG (NORVASC) TAB PO ONE (04:30)
[2021-04-08 05:22] LABS: ALBUMIN 2.8 GM/DL (3.2-4.5)
[2021-04-08 05:23] LABS: POTASSIUM 4.4 MMOL/L (3.6-5.0)
[2021-04-08 05:24] LABS: CALCIUM 8.2 MG/DL (8.5-10.1)
[2021-04-08 05:25] LABS: TOTAL PROTEIN 5.7 GM/DL (6.4-8.2)
[2021-04-08 05:27] LABS: BILIRUBIN,TOTAL 0.5 MG/DL (0.1-1.0)
[2021-04-08 05:29] LABS: CREATININE SERUM 0.97 MG/DL (0.60-1.30)
[2021-04-08 05:44] LABS: BASOPHILS % (AUTO) 0 % (0-10); EOSINOPHILS % (AUTO) 0 % (0-10); HEMATOCRIT 40 % (35-52); HEMOGLOBIN 13.2 g/dL (11.5-16.0); LYMPHOCYTES # (AUTO) 1.1 10^3/uL (1.0-4.0); LYMPHOCYTES % (AUTO) 11 % (12-44); MEAN CORPUSCULAR HEMOGLOBIN 28 pg (25-34); MEAN CORPUSCULAR HGB CONC 33 g/dL (32-36); MEAN CORPUSCULAR VOLUME 84 fL (80-99); MEAN PLATELET VOLUME 10.8 fL (9.0-12.2); MONOCYTES # (AUTO) 0.7 10^3/uL (0.0-1.0); MONOCYTES % (AUTO) 7 % (0-12); NEUTROPHILS # (AUTO) 8.3 10^3/uL (1.8-7.8); NEUTROPHILS % (AUTO) 81 % (42-75); PLATELET COUNT 278 10^3/uL (130-400); WHITE BLOOD COUNT 10.2 10^3/uL (4.3-11.0)
--- NOTE | 2021-04-08 05:55 | Progress Note - Hospitalist ---
Subjective HPI/CC On Admission Date Seen by Provider: Apr 08, 2021 Time Seen by Provider: 10:00 Chief complaint: Acute on chronic hypoxic respiratory failure with COVID-19 pneumonia History present illness: This is a 75-year-old white female clinic patient of [facility] who has a history of morbid obesity with BMI of 49 who presents to the ER with shortness of breath. She was diagnosed with Covid and she is extremely high risk for intubation. She will think about Actemra after I discussed it with her. Patient's morbid obesity and chronic hypercapnic and hypoxic respiratory failure will place her at risk so she remains in the ICU. Vapotherm maintained but needs BiPAP. Subjective/Events-last exam Pt doing a little better BP a little elevated Ordered some meds Transferring to fourth floor Vapotherm at 20 liters and 45% Overall seems to be doing pretty well and tolerating everything Review of Systems General: Fatigue, Malaise Pulmonary: Dyspnea Objective Exam Vital Signs Vital Signs Date Time Temp Pulse Resp B/P (MAP) Pulse Ox O2 Delivery O2 Flow Rate FiO2 04/09/21 04:11 35.2 50 22 165/98 94 Vapotherm 25.00 50.00 04/09/21 02:59 50 Capillary Refill : Less Than 3 Seconds General Appearance: No Apparent Distress, WD/WN, Anxious, Chronically ill, Obese Respiratory: Lungs Clear, Normal Breath Sounds Cardiovascular: Regular Rate, Rhythm Neurologic/Psychiatric: Alert, Oriented x3, No Motor/Sensory Deficits, Normal Mood/Affect Results/Procedures Lab Laboratory Tests 04/09/21 04:10 Patient resulted labs reviewed. Assessment/Plan Assessment and Plan Assess & Plan/Chief Complaint Assessment: Acute on chronic hypoxic hypercapnic respiratory failure COVID-19 pneumonia Super morbid obesity BMI of 49 Diabetes mellitus Hypothyroidism Anxiety Plan: Vapotherm BiPAP ICU 04/06/2021: Transfer to cardiac stepdown unit Anxiety management 04/07/2021: Vapotherm Anxiety treatment 04/08/2021: Supportive care Transfer to fourth floor Diagnosis/Problems Diagnosis/Problems (1) Pneumonia due to COVID-19 virus Status: Acute (2) Hypoxia Status: Acute LEFTY QUIÑONES DO Apr 08, 2021 05:55
[2021-04-08] MEDS: VENlafaxine XR 75 MG (EFFEXOR XR) CAP PO SCH (06:18)
[2021-04-08] MEDS: LEVOTHYROXINE 75 MCG (LEVOTHROID) TABLET PO SCH (06:18)
[2021-04-08] MEDS: glipiZIDE 5 MG (GLUCOTROL) TAB PO SCH (06:18)
[2021-04-08] MEDS: inSUlin ASPART (NovoLOG) 1 UNIT/0.01 ML (CHARGE PER UNIT) SQ SCH ×4 (06:21→21:00)
--- NOTE | 2021-04-08 08:12 | Diagnostic Imaging Report ---
INDICATION: COVID pneumonia, dyspnea COMPARISON: 04/07/2021 TECHNIQUE: Single radiograph the chest dated 04/08/2021. FINDINGS: The cardiac silhouette is enlarged, though stable. Pulmonary vasculature appears mildly engorged. Extensive bilateral pulmonary infiltrates are again identified, worsened within the bilateral upper lungs. No large-volume pleural effusion. No pneumothorax. No acute osseous abnormality. IMPRESSION: Worsening extensive bilateral pulmonary opacities, likely related to pneumonia. Persisting mild central pulmonary vascular congestion. Report was faxed to [facility] by surendra at 8:12AM. Dictated by: Dictated on workstation # [id number]
[2021-04-08] MEDS: CEFEPIME 1,000 MG/NS 50 ML IVPB IV SCH ×4 (10:11→16:55)
[2021-04-08] MEDS: guaiFENesin (MUCINEX) 600 MG TAB PO SCH ×2 (10:12→21:00)
[2021-04-08] MEDS: ENOXAPARIN 40 MG/0.4 ML (LOVENOX) SYR SC SCH ×2 (10:12→21:01)
[2021-04-08] MEDS: VERAPAMIL SR 240 MG (CALAN SR) TAB PO SCH (10:12)
[2021-04-08] MEDS: ESTRADIOL 1 MG TAB (ESTRACE) PO SCH (10:13)
[2021-04-08] MEDS: traZODone 50 MG (DESYREL) TAB PO PRN (21:00)
[2021-04-08] MEDS ORDERED: AZITHROMYCIN 250 MG TAB (ZITHROMAX) PO SCH (21:00)
[2021-04-09] MEDS: CEFEPIME 1,000 MG/NS 50 ML IVPB IV SCH ×4 (00:54→08:14)
[2021-04-09 04:33] LABS: BASOPHILS % (AUTO) 0 % (0-10); EOSINOPHILS % (AUTO) 0 % (0-10); HEMATOCRIT 44 % (35-52); HEMOGLOBIN 14.4 g/dL (11.5-16.0); LYMPHOCYTES % (AUTO) 11 % (12-44); MEAN CORPUSCULAR HEMOGLOBIN 27 pg (25-34); MEAN CORPUSCULAR HGB CONC 33 g/dL (32-36); MEAN CORPUSCULAR VOLUME 82 fL (80-99); MEAN PLATELET VOLUME 10.4 fL (9.0-12.2); MONOCYTES # (AUTO) 0.7 10^3/uL (0.0-1.0); MONOCYTES % (AUTO) 8 % (0-12); NEUTROPHILS # (AUTO) 7.3 10^3/uL (1.8-7.8); NEUTROPHILS % (AUTO) 77 % (42-75); PLATELET COUNT 333 10^3/uL (130-400); WHITE BLOOD COUNT 9.5 10^3/uL (4.3-11.0)
[2021-04-09 04:58] LABS: POTASSIUM 4.2 MMOL/L (3.6-5.0)
[2021-04-09 04:59] LABS: CALCIUM 8.6 MG/DL (8.5-10.1)
[2021-04-09 05:00] LABS: TOTAL PROTEIN 6.3 GM/DL (6.4-8.2)
[2021-04-09 05:02] LABS: BILIRUBIN,TOTAL 0.6 MG/DL (0.1-1.0)
[2021-04-09 05:04] LABS: CREATININE SERUM 1.03 MG/DL (0.60-1.30)
[2021-04-09] MEDS: inSUlin ASPART (NovoLOG) 1 UNIT/0.01 ML (CHARGE PER UNIT) SQ SCH ×4 (06:11→21:09)
[2021-04-09] MEDS: LEVOTHYROXINE 75 MCG (LEVOTHROID) TABLET PO SCH (06:11)
[2021-04-09] MEDS: glipiZIDE 5 MG (GLUCOTROL) TAB PO SCH (06:11)
[2021-04-09] MEDS: VENlafaxine XR 75 MG (EFFEXOR XR) CAP PO SCH (06:12)
--- NOTE | 2021-04-09 06:42 | Progress Note - Hospitalist ---
Subjective HPI/CC On Admission Date Seen by Provider: Apr 09, 2021 Time Seen by Provider: 10:00 Chief complaint: Acute on chronic hypoxic respiratory failure with COVID-19 pneumonia History present illness: This is a 75-year-old white female clinic patient of [facility] who has a history of morbid obesity with BMI of 49 who presents to the ER with shortness of breath. She was diagnosed with Covid and she is extremely high risk for intubation. She will think about Actemra after I discussed it with her. Patient's morbid obesity and chronic hypercapnic and hypoxic respiratory failure will place her at risk so she remains in the ICU. Vapotherm maintained but needs BiPAP. Subjective/Events-last exam Pt seems to be doing well Moving down to fourth floor Vapotherm at 20 liters and 55% PT and OT will be ordered Increased sugars will be monitored since I did just add long acting along with sliding scale Elevated blood pressure noted and will be treated Review of Systems General: Fatigue, Malaise Pulmonary: Dyspnea Objective Exam Vital Signs Vital Signs Date Time Temp Pulse Resp B/P (MAP) Pulse Ox O2 Delivery O2 Flow Rate FiO2 04/09/21 23:20 36.3 50 24 189/85 95 Vapotherm 25.00 55.00 04/09/21 21:00 55 Capillary Refill : Less Than 3 Seconds General Appearance: No Apparent Distress, WD/WN, Anxious, Chronically ill, Obese Respiratory: No Accessory Muscle Use, No Respiratory Distress, Decreased Breath Sounds Cardiovascular: Regular Rate, Rhythm Neurologic/Psychiatric: Alert, Oriented x3, No Motor/Sensory Deficits, Normal Mood/Affect Results/Procedures Lab Patient resulted labs reviewed. Assessment/Plan Assessment and Plan Assess & Plan/Chief Complaint Assessment: Acute on chronic hypoxic hypercapnic respiratory failure COVID-19 pneumonia Super morbid obesity BMI of 49 Diabetes mellitus Hypothyroidism Anxiety Plan: Vapotherm BiPAP ICU 04/06/2021: Transfer to cardiac stepdown unit Anxiety management 04/07/2021: Vapotherm Anxiety treatment 04/08/2021: Supportive care Transfer to fourth floor 04/09/2021: Supportive care Wean Vapotherm Patient refuses to lie on her side or perform incentive spirometer Diagnosis/Problems Diagnosis/Problems (1) Pneumonia due to COVID-19 virus Status: Acute (2) Hypoxia Status: Acute LEFTY QUIÑONES DO Apr 09, 2021 06:42
[2021-04-09] MEDS: guaiFENesin (MUCINEX) 600 MG TAB PO SCH ×2 (08:14→21:10)
[2021-04-09] MEDS: ENOXAPARIN 40 MG/0.4 ML (LOVENOX) SYR SC SCH ×2 (08:14→21:14)
[2021-04-09] MEDS: ESTRADIOL 1 MG TAB (ESTRACE) PO SCH (08:14)
[2021-04-09] MEDS: VERAPAMIL SR 240 MG (CALAN SR) TAB PO SCH (08:14)
--- NOTE | 2021-04-09 14:01 | Occupational Therapy Eval ---
OT Evaluation-General/PLF Medical Diagnosis Admission Date Apr 04, 2021 at 18:55 Medical Diagnosis: hypoxic resp failure with covid 19 pneumonia Onset Date: Apr 04, 2021 Therapy Diagnosis Therapy Diagnosis: reduced adl status, endurance, o2 dependence Precautions Precautions/Isolations: Airborne Isolation, Contact Isolation, Fall Prevention Referral Physician: Heather Soto Reason: Evaluation/Treatment Medical History Pertinent Medical History: DM, HTN, Hypothroidism Current History presents to ER with SOB. Diagnosed with Covid 19 pneumonia Reviewed History: Yes Social History Home: Single Level Current Living Status: Children Entry Into Home: Ramp Lives with daughter. Reports indep with adls except receives assist with transfer in/out of tub. Dtr performs all iadls. Pt uses a cane inside home and a walker or electric scooter when out in the community. ADL-Prior Level of Function SCALE: Activities may be completed with or without assistive devices. 3-Zheiylzncz-lebidam completes the activity by him/herself with no assistance from a helper. 5-Set-up or Clean-up Assistance-helper sets up or cleans up; patient completes activity. [place] assists only prior to or following the activity. 4-Supervision or Touching Assistance-helper provides verbal cues and/or touching/steadying and/or contact guard assistance as patient completes activity. Assistance may be provided throughout the activity or intermittently. 3-Partial/Moderate Assistance-helper does LESS THAN HALF the effort. [place] lif ts, holds or supports trunk or limbs, but provides less than half the effort. 2-Substantial/Maximal Assistance-helper does MORE THAN HALF the effort. [place] lifts or holds trunk or limbs and provides more than half the effort. 6-Lxeukybmp-suribi does ALL the effort. Patient does none of the effort to complete the activity. Or, the assistance of 2 or more helpers is required for the patient to complete the activity. If activity was not attempted, code reason: 7-Patient Refused. 9-Not Applicable-not attempted and the patient did not perform the activity before the current illness, exacerbation or injury. 10-Not Attempted due to Environmental Limitations-(lack of equipment, weather restraints, etc.). 88-Not Attempted due to Medical Conditions or Safety Concerns. Self Care: Independent Functional Cognition: Independent DME/Equipment: Bath Bench, Grab Bars, Tub/Shower Drive Self: Yes OT Current Status Subjective Denies pain. Agreeable to treatment Appearance Left supine in bed, GLYCERIN SUPERVISOR to retrieve new call light. Mental Status/Objective Patient Orientation: Person, Place, Time, Situation Attachments: IV, Oxygen, Other-See Comments (Vapotherm, 25L) Current Glasses/Contacts: Yes Hearing Aids: No Dentures/Partials: No Hand Dominance: Right Upper Extremity ROM WNL Upper Extremity Strength 3+/5 bilateral shoulders 4/5 elbows fair transit mixer driver ADL-Treatment Eating (QC): 5 Oral Hygiene (QC): 5 Toileting Hygiene (QC): 4 Pt transferring off commode at OT arrival CGA. RN and GLYCERIN SUPERVISOR in room; Report p atient is being transferred to room 433. Assist to transfer belongings. Supine<>sit: SBA. Pt reports mild dizziness upon sitting up. Appears slightly out of breath, cues for PLB. Currently on vapotherm, 25L. Education OT Patient Education: Correct positioning, Disease process, Energy conservation, Purpose of tx/functional activities Teaching Recipient: Patient Teaching Methods: Discussion Response to Teaching: Verbalize Understanding OT Senior Care Goals Content Strategy Lead Goals Time Frame: Apr 23, 2021 Toileting Hygiene (QC): 5 Shower/Bathe Self (QC): 4 Upper Body Dressing (QC): 5 Lower Body Dressing (QC): 4 On/Off Footwear (QC): 5 1=Demonstrate adherence to instructed precautions during ADL tasks. 2=Patient will verbalize/demonstrate understanding of assistive device s/modifications for ADL. 3=Patient will improve strength/tolerance for activity to enable patient to perform ADL's. OT Education/Plan Problem List/Assessment Assessment: Decreased Activ Tolerance, Decreased UE Strength, Impaired Self- Care Skills Discharge Recommendations Plan/Recommendations: Continue POC Comment ongoing assessment. Likely home health pending progress Treatment Plan/Plan of Care Treatment,Training & Education: Yes Patient would benefit from OT for education, treatment and training to promote independence in ADL's, mobility, safety and/or upper extremity function for ADL's. Plan of Care: ADL Retraining, Functional Mobility, UE Funct Exercise/Act Treatment Duration: Apr 23, 2021 Frequency: 3 times per week Estimated Hrs Per Day: .25 hour per day Agreement: Yes 3-5x/week Time/GCodes Start Time: 13:36 Stop Time: 13:52 Total Time Billed (hr/min): 16 Billed Treatment Time 1 visit Keisha Prajapati OT Apr 09, 2021 14:01
--- NOTE | 2021-04-09 15:18 | Physical Therapy Evaluation ---
PT Evaluation-General Medical Diagnosis Admission Date Apr 04, 2021 at 18:55 Medical Diagnosis: hypoxic resp failure with covid 19 pneumonia Onset Date: Apr 04, 2021 Therapy Diagnosis Therapy Diagnosis: Gait deficit, strength deficit Precautions Precautions/Isolations: Airborne Isolation, Contact Isolation, Fall Prevention Referral Physician: Heather Reason for Referral: Evaluation/Treatment Medical History Pertinent Medical History: DM, HTN, Hypothroidism Reviewed History: Yes Social History Home: Single Level Current Living Status: Children Entry Into Home: Ramp Prior Prior Level of Function SCALE: Activities may be completed with or without assistive devices. 5-Lyeilakhym-cjsqzce completes the activity by him/herself with no assistance from a helper. 5-Set-up or Clean-up Assistance-helper sets up or cleans up; patient completes activity. [place] assists only prior to or following the activity. 4-Supervision or Touching Assistance-helper provides verbal cues and/or touching/steadying and/or contact guard assistance as patient completes activity. Assistance may be provided throughout the activity or intermittently. 3-Partial/Moderate Assistance-helper does LESS THAN HALF the effort. [place] lifts, holds or supports trunk or limbs, but provides less than half the effort. 2-Substantial/Maximal Assistance-helper does MORE THAN HALF the effort. [place] lifts or holds trunk or limbs and provides more than half the effort. 8-Cnzvpriul-poyjra does ALL the effort. Patient does none of the effort to co mplete the activity. Or, the assistance of 2 or more helpers is required for the patient to complete the activity. If activity was not attempted, code reason: 7-Patient Refused. 9-Not Applicable-not attempted and the patient did not perform the activity before the current illness, exacerbation or injury. 10-Not Attempted due to Environmental Limitations-(lack of equipment, weather restraints, etc.). 88-Not Attempted due to Medical Conditions or Safety Concerns. Bed Mobility: 6 Transfers (B,C,W/C): 6 Gait: 6 Stairs: 6 Indoor Mobility (Ambulation): Independent Stairs: Independent Prior Devices Use: Walker Prior Device Use: Cane PT Evaluation-Current Subjective Patient reports 6/10 pain currently in low back. Agreeable to treatment. Objective Patient Orientation: Person, Place, Time, Situation Attachments: Oxygen, IV ROM/Strength ROM Lower Extremities WFLs bilateral LEs Strength Lower Extremities 3+/5 bilaterally all planes. Sensory Vision: Functional Hearing: Functional Hand Dominance: Right Sensation Right Lower Extremit: Intact Sensation Left Lower Extremity: Intact Transfers Roll Left to Right (QC): 4 Sit to Lying (QC): 4 Lying to Sitting/Side of Bed(Q: 4 Sit to Stand (QC): 4 Gait Does the Patient Walk?: Yes Mode of Locomotion: Walk Anticipated Mode of Locomotion: Walk Walk 10 feet (QC): 4 Distance: 20 Gait Assistive Device: Cane Small Base Quad Balance Sitting Static: Good Sitting Dynamic: Good Standing Static: Fair Standing Dynamic: Fair Assessment/Needs Patient tolerated treatment fair, however afterwards reports significant fatigue. Patient performs all observed bed mobility and transfers with SBA/CGA. Patient ambulates 20 feet in the room with cane in right UE, with CGA and verbal cues for safety, progression, balance and posture. Patient ambulates with rounded shoulders, forward trunk posture and short stride length bilaterally. Patient in bed post treatment with all needs met, nursing notified, call light in reach. Rehab Potential: Good PT [facility] Goals Playground Equipment Erector Goals PT Playground Equipment Erector Goals Time Frame: Apr 25, 2021 Roll Left & Right (QC): 6 Sit to Lying (QC): 6 Lying-Sitting on Side/Bed(QC): 6 Sit to Stand (QC): 6 Chair/Eqj-is-Qnnnl Xfer(QC): 6 Toilet Transfer (QC): 6 Does the Patient Walk: Yes Walk 10 feet (QC): 5 Walk 50ft with 2 Turns (QC): 5 Walk 150 ft (QC): 5 PT Plan Problem List Problem List: Activity Tolerance, Functional Strength, Safety, Balance, Gait, Transfer, Bed Mobility, ROM Treatment/Plan Treatment Plan: Continue Plan of Care Treatment Plan: Bed Mobility, Education, Functional Activity Araceli, Functional Strength, Group Therapy, Gait, Safety, Therapeutic Exercise, Transfers Treatment Duration: May 09, 2021 Frequency: 6 times per week Estimated Hrs Per Day: .25 hour per day Patient and/or Family Agrees t: Yes Safety Risks/Education Patient Education: Gait Training Teaching Recipient: Patient Teaching Methods: Demonstration, Discussion Response to Teaching: Verbalize Understanding, Return Demonstration Time/GCodes Time In: 1452 Time Out: 1515 Total Billed Treatment Time: 23 Total Billed Treatment Visit, heaven Trevino JOHN A PT Apr 09, 2021 15:18
[2021-04-09] MEDS ORDERED: NITROGLYCERIN 2% OINT 1 GM UNIT DOSE PACKET TOP PRN (20:45)
[2021-04-09] MEDS ORDERED: FUROSEMIDE 40 MG/4 ML INJ (LASIX) IVP ONE (20:45)
[2021-04-09] MEDS ORDERED: FUROSEMIDE 40 MG/4 ML INJ (LASIX) ONE (20:48)
[2021-04-09] MEDS ORDERED: ENALAPRILAT 2.5 MG/2 ML (VASOTEC) VIAL IV ONE (20:49)
[2021-04-09] MEDS: ENALAPRILAT 2.5 MG/2 ML (VASOTEC) VIAL IV SCH (21:14)
[2021-04-10] MEDS: ENALAPRILAT 2.5 MG/2 ML (VASOTEC) VIAL IV SCH ×4 (01:03→17:31)
[2021-04-10 05:22] LABS: ALBUMIN 3.1 GM/DL (3.2-4.5)
[2021-04-10 05:23] LABS: POTASSIUM 3.9 MMOL/L (3.6-5.0)
[2021-04-10 05:24] LABS: CALCIUM 8.6 MG/DL (8.5-10.1)
[2021-04-10 05:25] LABS: TOTAL PROTEIN 6.2 GM/DL (6.4-8.2)
[2021-04-10 05:27] LABS: BILIRUBIN,TOTAL 0.6 MG/DL (0.1-1.0)
[2021-04-10 05:29] LABS: CREATININE SERUM 1.21 MG/DL (0.60-1.30)
[2021-04-10] MEDS: glipiZIDE 5 MG (GLUCOTROL) TAB PO SCH (06:09)
[2021-04-10] MEDS: LEVOTHYROXINE 75 MCG (LEVOTHROID) TABLET PO SCH (06:09)
[2021-04-10] MEDS: VENlafaxine XR 75 MG (EFFEXOR XR) CAP PO SCH (06:09)
[2021-04-10] MEDS: inSUlin ASPART (NovoLOG) 1 UNIT/0.01 ML (CHARGE PER UNIT) SQ SCH ×4 (06:13→21:24)
[2021-04-10 06:36] LABS: BASOPHILS % (AUTO) 0 % (0-10); EOSINOPHILS % (AUTO) 0 % (0-10); HEMATOCRIT 45 % (35-52); LYMPHOCYTES # (AUTO) 1.2 10^3/uL (1.0-4.0); LYMPHOCYTES % (AUTO) 11 % (12-44); MEAN CORPUSCULAR HEMOGLOBIN 28 pg (25-34); MEAN CORPUSCULAR HGB CONC 34 g/dL (32-36); MEAN CORPUSCULAR VOLUME 82 fL (80-99); MEAN PLATELET VOLUME 10.4 fL (9.0-12.2); MONOCYTES % (AUTO) 9 % (0-12); NEUTROPHILS # (AUTO) 8.5 10^3/uL (1.8-7.8); NEUTROPHILS % (AUTO) 76 % (42-75); PLATELET COUNT 349 10^3/uL (130-400); WHITE BLOOD COUNT 11.2 10^3/uL (4.3-11.0)
[2021-04-10] MEDS: guaiFENesin (MUCINEX) 600 MG TAB PO SCH ×2 (08:35→21:24)
[2021-04-10] MEDS: ESTRADIOL 1 MG TAB (ESTRACE) PO SCH (08:36)
[2021-04-10] MEDS: hydrALAZINE (APRESOLINE) 25 MG TAB PO PRN ×2 (08:36→17:31)
[2021-04-10] MEDS: VERAPAMIL SR 240 MG (CALAN SR) TAB PO SCH (08:37)
[2021-04-10] MEDS: ENOXAPARIN 40 MG/0.4 ML (LOVENOX) SYR SC SCH ×2 (08:39→21:24)
--- NOTE | 2021-04-10 10:01 | Physical Therapy Daily Note ---
PT Daily Note-Current Subjective Patient very agreeable to participate with PT. Mental Status Patient Orientation: Normal For Age Attachments: Oxygen (vapotherm) Transfers SCALE: Activities may be completed with or without assistive devices. 0-Fstnueuven-hhckpaf completes the activity by him/herself with no assistance from a helper. 5-Set-up or Clean-up Assistance-helper sets up or cleans up; patient completes activity. [place] assists only prior to or following the activity. 4-Supervision or Touching Assistance-helper provides verbal cues and/or touching/steadying and/or contact guard assistance as patient completes activity. Assistance may be provided throughout the activity or intermittently. 3-Partial/Moderate Assistance-helper does LESS THAN HALF the effort. [place] lifts, holds or supports trunk or limbs, but provides less than half the effort. 2-Substantial/Maximal Assistance-helper does MORE THAN HALF the effort. [place] lifts or holds trunk or limbs and provides more than half the effort. 5-Hpgcrrgdx-bwgyii does ALL the effort. Patient does none of the effort to complete the activity. Or, the assistance of 2 or more helpers is required for the patient to complete the activity. If activity was not attempted, code reason: 7-Patient Refused. 9-Not Applicable-not attempted and the patient did not perform the activity before the current illness, exacerbation or injury. 10-Not Attempted due to Environmental Limitations-(lack of equipment, weather restraints, etc.). 88-Not Attempted due to Medical Conditions or Safety Concerns. Lying to Sitting/Side of Bed(Q: 6 Sit to Stand (QC): 4 Chair/Zmu-wu-Ygdfr Xfer(QC): 4 Toilet Transfer (QC): 4 (PT assist to cleanse after BM) Gait Training Does the Patient Walk?: Yes Distance: 10' x 3 Walk 10 feet (QC): 4 Gait Assistive Device: Cane Small Base Quad WBOS/shuffle gait Exercises Seated Therapy Exercises: Ankle pumps, Long arc quads Seated Reps: 15 Treatments seated deep breathing exercises with trunk rotation and shoulder flexion x 5 reps each Assessment Patient fatigues with minimal activity and c/o dizziness with activity. SAO2 remained 95% with activity on Vapotherm 55%. PT to increase activity as tolerated by patient. Patient up in recliner with needs met. PT Office Administration Instructor Goals Jail Goals PT Jail Goals Time Frame: Apr 25, 2021 Roll Left & Right (QC): 6 Sit to Lying (QC): 6 Lying-Sitting on Side/Bed(QC): 6 Sit to Stand (QC): 6 Chair/Oaf-dr-Kypcv Xfer(QC): 6 Toilet Transfer (QC): 6 Does the Patient Walk: Yes Walk 10 feet (QC): 5 Walk 50ft with 2 Turns (QC): 5 Walk 150 ft (QC): 5 PT Plan Treatment/Plan Treatment Plan: Continue Plan of Care Treatment Plan: Bed Mobility, Education, Functional Activity Araceli, Functional Strength, Group Therapy, Gait, Safety, Therapeutic Exercise, Transfers Treatment Duration: May 09, 2021 Frequency: 6 times per week Estimated Hrs Per Day: .25 hour per day Patient and/or Family Agrees t: Yes Time/GCodes Time In: 915 Time Out: 932 Total Billed Treatment Time: 17 Total Billed Treatment 1 visit FA 17 min DEMETRIUS MOCK PT Apr 10, 2021 10:01
--- NOTE | 2021-04-10 11:31 | Occupational Ther Daily Note ---
OT Current Status-Daily Note Subjective Pt dozing in bed, woke to name. Pt agrees to therapy though no OOB tasks due to just getting back into bed. Pt c/o back pain. Mental Status/Objective Patient Orientation: Person, Place, Time, Situation Attachments: IV, Oxygen, Telemetry ADL-Treatment Therapy Code Descriptions/Definitions Functional [place] Measure: 0=Not Assessed/NA 4=Minimal Assistance 1=Total Assistance 5=Supervision or Setup 2=Maximal Assistance 6=Modified Tift 3=Moderate Assistance 7=Complete IndependenceSCALE: Activities may be completed with or without assistive devices. 4-Tonkeewfuf-wkmyyvl completes the activity by him/herself with no assistance from a helper. 5-Set-up or Clean-up Assistance-helper sets up or cleans up; patient completes activity. [place] assists only prior to or following the activity. 4-Supervision or Touching Assistance-helper provides verbal cues and/or touching/steadying and/or contact guard assistance as patient completes activity. Assistance may be provided throughout the activity or intermittently. 3-Partial/Moderate Assistance-helper does LESS THAN HALF the effort. [place] lifts, holds or supports trunk or limbs, but provides less than half the effort. 2-Substantial/Maximal Assistance-helper does MORE THAN HALF the effort. [place] lifts or holds trunk or limbs and provides more than half the effort. 7-Vwypkacyq-uuxdtc does ALL the effort. Patient does none of the effort to co mplete the activity. Or, the assistance of 2 or more helpers is required for the patient to complete the activity. If activity was not attempted, code reason: 7-Patient Refused. 9-Not Applicable-not attempted and the patient did not perform the activity before the current illness, exacerbation or injury. 10-Not Attempted due to Environmental Limitations-(lack of equipment, weather restraints, etc.). 88-Not Attempted due to Medical Conditions or Safety Concerns. Other Treatment Pt completed B UE exercises 1 set 10 reps alternating touching opposite shldr, 1 set 10 reps with isometric tricep strengthening, 1 set 10 reps shldr abd. Pt tolerated these then stated that she was tired and would complete them again later in the day. After therapy, pt lying in bed with call light/phone in reach. All needs met in room. OT Investigator Claims Goals Residential Goals Time Frame: Apr 23, 2021 Toileting Hygiene (QC): 5 Shower/Bathe Self (QC): 4 Upper Body Dressing (QC): 5 Lower Body Dressing (QC): 4 On/Off Footwear (QC): 5 1=Demonstrate adherence to instructed precautions during ADL tasks. 2=Patient will verbalize/demonstrate understanding of assistive devices/modifications for ADL. 3=Patient will improve strength/tolerance for activity to enable patient to perform ADL's. OT Education/Plan Problem List/Assessment Assessment: Decreased Activ Tolerance, Decreased UE Strength Discharge Recommendations Plan/Recommendations: Continue POC Treatment Plan/Plan of Care Patient would benefit from OT for education, treatment and training to promote independence in ADL's, mobility, safety and/or upper extremity function for ADL's. Plan of Care: ADL Retraining, Functional Mobility, UE Funct Exercise/Act Treatment Duration: Apr 23, 2021 Frequency: 3 times per week Estimated Hrs Per Day: .25 hour per day Agreement: Yes Rehab Potential: Good Time/GCodes Start Time: 11:03 Stop Time: 11:13 Total Time Billed (hr/min): 10 Billed Treatment Time 1 visit-EX 1 (10 min) SILVIA GALLOWAY Apr 10, 2021 11:31
--- NOTE | 2021-04-10 12:04 | Progress Note - Hospitalist ---
Subjective HPI/CC On Admission Date Seen by Provider: Apr 10, 2021 Time Seen by Provider: 11:00 Chief complaint: Acute on chronic hypoxic respiratory failure with COVID-19 pneumonia History present illness: This is a 75-year-old white female clinic patient of formerly [facility] who has a history of morbid obesity with BMI of 49 who presents to the ER with shortness of breath. She was diagnosed with Covid and she is extremely high risk for intubation. She will think about Actemra after I discussed it with her. Patient's morbid obesity and chronic hypercapnic and hypoxic respiratory failure will place her at risk so she remains in the ICU. Vapotherm maintained but needs BiPAP. Subjective/Events-last exam Pt still on Vapotherm at 25 liters and 55% Lots of difficulty coping A lot of anxiousness Chronically ill Checked meds and labs Bowels moving Review of Systems Pulmonary: Dyspnea, Cough Objective Exam Vital Signs Vital Signs Date Time Temp Pulse Resp B/P (MAP) Pulse Ox O2 Delivery O2 Flow Rate FiO2 04/11/21 04:25 36.4 49 22 193/81 92 Vapotherm 25.00 50.00 04/11/21 02:42 50 Capillary Refill : Less Than 3 Seconds General Appearance: No Apparent Distress, WD/WN, Chronically ill, Obese Respiratory: Lungs Clear, Normal Breath Sounds Cardiovascular: Regular Rate, Rhythm Neurologic/Psychiatric: Alert, Oriented x3, No Motor/Sensory Deficits, Normal Mood/Affect Results/Procedures Lab Laboratory Tests 04/10/21 06:05 04/11/21 04:55 Patient resulted labs reviewed. Assessment/Plan Assessment and Plan Assess & Plan/Chief Complaint Assessment: Acute on chronic hypoxic hypercapnic respiratory failure COVID-19 pneumonia Super morbid obesity BMI of 49 Diabetes mellitus Hypothyroidism Anxiety Plan: Vapotherm BiPAP ICU 04/06/2021: Transfer to cardiac stepdown unit Anxiety management 04/07/2021: Vapotherm Anxiety treatment 04/08/2021: Supportive care Transfer to fourth floor 04/09/2021: Supportive care Wean Vapotherm Patient refuses to lie on her side or perform incentive spirometer 04/10/2021: Supportive care Diagnosis/Problems Diagnosis/Problems (1) Pneumonia due to COVID-19 virus Status: Acute (2) Hypoxia Status: Acute LEFTY QUIÑONES DO Apr 10, 2021 12:04
[2021-04-11] MEDS: ENALAPRILAT 2.5 MG/2 ML (VASOTEC) VIAL IV SCH ×4 (00:03→18:37)
[2021-04-11] MEDS: hydrALAZINE (APRESOLINE) 25 MG TAB PO PRN ×2 (04:54→11:41)
[2021-04-11 05:06] LABS: BASOPHILS % (AUTO) 0 % (0-10); EOSINOPHILS % (AUTO) 0 % (0-10); HEMATOCRIT 44 % (35-52); HEMOGLOBIN 14.8 g/dL (11.5-16.0); LYMPHOCYTES # (AUTO) 1.3 10^3/uL (1.0-4.0); LYMPHOCYTES % (AUTO) 11 % (12-44); MEAN CORPUSCULAR HEMOGLOBIN 28 pg (25-34); MEAN CORPUSCULAR HGB CONC 34 g/dL (32-36); MEAN CORPUSCULAR VOLUME 81 fL (80-99); MONOCYTES # (AUTO) 1.3 10^3/uL (0.0-1.0); MONOCYTES % (AUTO) 11 % (0-12); NEUTROPHILS # (AUTO) 8.6 10^3/uL (1.8-7.8); NEUTROPHILS % (AUTO) 73 % (42-75); PLATELET COUNT 358 10^3/uL (130-400); WHITE BLOOD COUNT 11.8 10^3/uL (4.3-11.0)
[2021-04-11 05:20] LABS: PROTHROMBIN TIME PATIENT 13.7 SEC (12.2-14.7)
[2021-04-11 05:26] LABS: ALBUMIN 2.9 GM/DL (3.2-4.5)
[2021-04-11 05:27] LABS: POTASSIUM 4.1 MMOL/L (3.6-5.0)
[2021-04-11 05:28] LABS: CALCIUM 8.5 MG/DL (8.5-10.1)
[2021-04-11 05:29] LABS: TOTAL PROTEIN 5.8 GM/DL (6.4-8.2)
[2021-04-11 05:31] LABS: BILIRUBIN,TOTAL 0.6 MG/DL (0.1-1.0)
[2021-04-11 05:33] LABS: CREATININE SERUM 1.13 MG/DL (0.60-1.30)
[2021-04-11] MEDS: inSUlin ASPART (NovoLOG) 1 UNIT/0.01 ML (CHARGE PER UNIT) SQ SCH ×4 (05:40→20:32)
[2021-04-11] MEDS: VENlafaxine XR 75 MG (EFFEXOR XR) CAP PO SCH (06:24)
[2021-04-11] MEDS: glipiZIDE 5 MG (GLUCOTROL) TAB PO SCH (06:24)
[2021-04-11] MEDS: LEVOTHYROXINE 75 MCG (LEVOTHROID) TABLET PO SCH (06:24)
[2021-04-11] MEDS: ENOXAPARIN 40 MG/0.4 ML (LOVENOX) SYR SC SCH ×2 (08:28→20:30)
[2021-04-11] MEDS: VERAPAMIL SR 240 MG (CALAN SR) TAB PO SCH (08:28)
[2021-04-11] MEDS: guaiFENesin (MUCINEX) 600 MG TAB PO SCH ×2 (08:28→20:30)
--- NOTE | 2021-04-11 09:26 | Physical Therapy Daily Note ---
PT Daily Note-Current Subjective Patient agrees to PT. Up in recliner on Vapotherm.25L/50% Mental Status Attachments: Oxygen (vapotherm) Transfers SCALE: Activities may be completed with or without assistive devices. 2-Aseojnfzom-enxxyrc completes the activity by him/herself with no assistance from a helper. 5-Set-up or Clean-up Assistance-helper sets up or cleans up; patient completes activity. [place] assists only prior to or following the activity. 4-Supervision or Touching Assistance-helper provides verbal cues and/or touch ing/steadying and/or contact guard assistance as patient completes activity. Assistance may be provided throughout the activity or intermittently. 3-Partial/Moderate Assistance-helper does LESS THAN HALF the effort. [place] lifts, holds or supports trunk or limbs, but provides less than half the effort. 2-Substantial/Maximal Assistance-helper does MORE THAN HALF the effort. [place] lifts or holds trunk or limbs and provides more than half the effort. 9-Zdbnsetpx-nxgubs does ALL the effort. Patient does none of the effort to complete the activity. Or, the assistance of 2 or more helpers is required for the patient to complete the activity. If activity was not attempted, code reason: 7-Patient Refused. 9-Not Applicable-not attempted and the patient did not perform the activity before the current illness, exacerbation or injury. 10-Not Attempted due to Environmental Limitations-(lack of equipment, weather restraints, etc.). 88-Not Attempted due to Medical Conditions or Safety Concerns. Sit to Stand (QC): 6 Exercises Standing: Marching Standing Reps: 12 (x 3 sets) Assessment Patient's SAO2 decreases to 78% with up right activity with very slow recovery to 88% in seated position. Patient performed standing activity x 3 sets with same results. Noted increase SOA. PT encouraged and educated patient on using incentive spirometer and deep breathing exercises were performed and reviewed. Patient voices understanding. Nursing notified. PT Comprehensive Ophthalmologist Goals Comprehensive Ophthalmologist Goals PT Comprehensive Ophthalmologist Goals Time Frame: Apr 25, 2021 Roll Left & Right (QC): 6 Sit to Lying (QC): 6 Lying-Sitting on Side/Bed(QC): 6 Sit to Stand (QC): 6 Chair/Ulv-ed-Fnljc Xfer(QC): 6 Toilet Transfer (QC): 6 Does the Patient Walk: Yes Walk 10 feet (QC): 5 Walk 50ft with 2 Turns (QC): 5 Walk 150 ft (QC): 5 PT Plan Treatment/Plan Treatment Plan: Continue Plan of Care Treatment Plan: Bed Mobility, Education, Functional Activity Araceli, Functional Strength, Group Therapy, Gait, Safety, Therapeutic Exercise, Transfers Treatment Duration: May 09, 2021 Frequency: 6 times per week Estimated Hrs Per Day: .25 hour per day Patient and/or Family Agrees t: Yes Time/GCodes Time In: 851 Time Out: 901 Total Billed Treatment Time: 10 Total Billed Treatment 1 visit EX 10 min DEMETRIUS MOCK PT Apr 11, 2021 09:26
[2021-04-11] MEDS: ESTRADIOL 1 MG TAB (ESTRACE) PO SCH (11:42)
--- NOTE | 2021-04-11 12:41 | Occupational Ther Daily Note ---
OT Current Status-Daily Note Subjective Pt sleeping in bed, woke to name. Nrsg reported that pt had just gotten back into bed and was anxious. Pt agrees to OT session. Mental Status/Objective Patient Orientation: Person, Place, Time, Situation Attachments: Zuniga Catheter, IV, Oxygen, Telemetry ADL-Treatment Pt agrees to complete oral care. After supplies gathered, pt able to complete oral care and grooming by self. Pt stated that she is able to get up to [facility], right beside bed, independently. Therapy Code Descriptions/Definitions Functional [place] Measure: 0=Not Assessed/NA 4=Minimal Assistance 1=Total Assistance 5=Supervision or Setup 2=Maximal Assistance 6=Modified [place] 3=Moderate Assistance 7=Complete IndependenceSCALE: Activities may be completed with or without assistive devices. 5-Hhrbfymixs-qdtnkjp completes the activity by him/herself with no assistance from a helper. 5-Set-up or Clean-up Assistance-helper sets up or cleans up; patient completes activity. [place] assists only prior to or following the activity. 4-Supervision or Touching Assistance-helper provides verbal cues and/or touching/steadying and/or contact guard assistance as patient completes activity. Assistance may be provided throughout the activity or intermittently. 3-Partial/Moderate Assistance-helper does LESS THAN HALF the effort. [place] lifts, holds or supports trunk or limbs, but provides less than half the effort. 2-Substantial/Maximal Assistance-helper does MORE THAN HALF the effort. [place] lifts or holds trunk or limbs and provides more than half the effort. 6-Jtwrmnbco-npipeq does ALL the effort. Patient does none of the effort to complete the activity. Or, the assistance of 2 or more helpers is required for the patient to complete the activity. If activity was not attempted, code reason: 7-Patient Refused. 9-Not Applicable-not attempted and the patient did not perform the activity before the current illness, exacerbation or injury. 10-Not Attempted due to Environmental Limitations-(lack of equipment, weather restraints, etc.). 88-Not Attempted due to Medical Conditions or Safety Concerns. Oral Hygiene (QC): 5 Other Treatment Pt able to complete 2 B UE exercises against gravity 1 set 10 reps before tiring. After session, pt lying in bed with call light/phone in reach. All needs met in room. OT Sterilization Tech Goals Fdc Goals Time Frame: Apr 23, 2021 Toileting Hygiene (QC): 5 Shower/Bathe Self (QC): 4 Upper Body Dressing (QC): 5 Lower Body Dressing (QC): 4 On/Off Footwear (QC): 5 1=Demonstrate adherence to instructed precautions during ADL tasks. 2=Patient will verbalize/demonstrate understanding of assistive devices/modifications for ADL. 3=Patient will improve strength/tolerance for activity to enable patient to perform ADL's. OT Education/Plan Problem List/Assessment Assessment: Decreased Activ Tolerance Discharge Recommendations Plan/Recommendations: Continue POC Treatment Plan/Plan of Care Patient would benefit from OT for education, treatment and training to promote independence in ADL's, mobility, safety and/or upper extremity function for ADL's. Plan of Care: ADL Retraining, Functional Mobility, UE Funct Exercise/Act Treatment Duration: Apr 23, 2021 Frequency: 3 times per week Estimated Hrs Per Day: .25 hour per day Agreement: Yes Rehab Potential: Good Time/GCodes Start Time: 11:00 Stop Time: 11:16 Total Time Billed (hr/min): 16 Billed Treatment Time 1 visit-ADL 1 (16 min) SILVIA GALLOWAY Apr 11, 2021 12:41
[2021-04-12] MEDS: ENALAPRILAT 2.5 MG/2 ML (VASOTEC) VIAL IV SCH ×5 (00:19→23:32)
[2021-04-12] MEDS: hydrALAZINE (APRESOLINE) 25 MG TAB PO PRN (03:40)
[2021-04-12] MEDS: inSUlin ASPART (NovoLOG) 1 UNIT/0.01 ML (CHARGE PER UNIT) SQ SCH ×4 (05:37→20:26)
--- NOTE | 2021-04-12 05:59 | Progress Note - Hospitalist ---
Subjective HPI/CC On Admission Date Seen by Provider: Apr 12, 2021 Time Seen by Provider: 11:00 Chief complaint: Acute on chronic hypoxic respiratory failure with COVID-19 pneumonia History present illness: This is a 75-year-old white female clinic patient of [facility] who has a history of morbid obesity with BMI of 49 who presents to the ER with shortness of breath. She was diagnosed with Covid and she is extremely high risk for intubation. She will think about Actemra after I discussed it with her. Patient's morbid obesity and chronic hypercapnic and hypoxic respiratory failure will place her at risk so she remains in the ICU. Vapotherm maintained but needs BiPAP. Subjective/Events-last exam Patient doing well Still on Vapotherm Try to wean oxygen today Decadron maintain Blood pressure stable Review of Systems Pulmonary: Dyspnea Objective Exam Vital Signs Vital Signs Date Time Temp Pulse Resp B/P (MAP) Pulse Ox O2 Delivery O2 Flow Rate FiO2 04/12/21 18:42 97 High Flow N/C 5.00 04/12/21 16:17 36.0 58 22 189/83 (118) 04/12/21 10:38 40 Capillary Refill : Less Than 3 Seconds General Appearance: No Apparent Distress, WD/WN, Chronically ill Respiratory: Lungs Clear, Normal Breath Sounds Cardiovascular: Regular Rate, Rhythm Results/Procedures Lab Laboratory Tests 04/12/21 06:30 Patient resulted labs reviewed. Assessment/Plan Assessment and Plan Assess & Plan/Chief Complaint Assessment: Acute on chronic hypoxic hypercapnic respiratory failure COVID-19 pneumonia Super morbid obesity BMI of 49 Diabetes mellitus Hypothyroidism Anxiety Plan: Vapotherm BiPAP ICU 04/06/2021: Transfer to cardiac stepdown unit Anxiety management 04/07/2021: Vapotherm Anxiety treatment 04/08/2021: Supportive care Transfer to fourth floor 04/09/2021: Supportive care Wean Vapotherm Patient refuses to lie on her side or perform incentive spirometer 04/10/2021: Supportive care 04/12/2021: Plan for blood pressure meds Wean O2 Diagnosis/Problems Diagnosis/Problems (1) Pneumonia due to COVID-19 virus Status: Acute (2) Hypoxia Status: Acute LEFTY QUIÑONES DO Apr 12, 2021 05:59
[2021-04-12] MEDS: LEVOTHYROXINE 75 MCG (LEVOTHROID) TABLET PO SCH (06:11)
[2021-04-12] MEDS: VENlafaxine XR 75 MG (EFFEXOR XR) CAP PO SCH (06:11)
[2021-04-12] MEDS: glipiZIDE 5 MG (GLUCOTROL) TAB PO SCH (06:11)
[2021-04-12 07:02] LABS: ALBUMIN 2.9 GM/DL (3.2-4.5); POTASSIUM 4.1 MMOL/L (3.6-5.0)
[2021-04-12 07:04] LABS: CALCIUM 8.5 MG/DL (8.5-10.1)
[2021-04-12 07:05] LABS: TOTAL PROTEIN 5.7 GM/DL (6.4-8.2)
[2021-04-12 07:07] LABS: BILIRUBIN,TOTAL 0.6 MG/DL (0.1-1.0)
[2021-04-12 07:08] LABS: CREATININE SERUM 1.17 MG/DL (0.60-1.30)
[2021-04-12 08:25] VITALS: BP 190/82
[2021-04-12] MEDS: guaiFENesin (MUCINEX) 600 MG TAB PO SCH ×2 (08:39→20:26)
[2021-04-12] MEDS: VERAPAMIL SR 240 MG (CALAN SR) TAB PO SCH (08:39)
[2021-04-12] MEDS: ENOXAPARIN 40 MG/0.4 ML (LOVENOX) SYR SC SCH ×2 (08:39→20:25)
[2021-04-12] MEDS: ESTRADIOL 1 MG TAB (ESTRACE) PO SCH (08:42)
--- NOTE | 2021-04-12 10:11 | Physical Therapy Daily Note ---
PT Daily Note-Current Subjective Patient in bed pre tx, agrees to PT, has some unrated low back pain. Appearance Patient in bed post tx with nurse call, phone, tray, all needs met. Mental Status Patient Orientation: Person, Place, Situation Attachments: Oxygen (vapotherm) Transfers SCALE: Activities may be completed with or without assistive devices. 1-Vgazxnngyl-ombtecb completes the activity by him/herself with no assistance from a helper. 5-Set-up or Clean-up Assistance-helper sets up or cleans up; patient completes activity. [place] assists only prior to or following the activity. 4-Supervision or Touching Assistance-helper provides verbal cues and/or touching/steadying and/or contact guard assistance as patient completes activity. Assistance may be provided throughout the activity or intermittently. 3-Partial/Moderate Assistance-helper does LESS THAN HALF the effort. [place] lifts, holds or supports trunk or limbs, but provides less than half the effort. 2-Substantial/Maximal Assistance-helper does MORE THAN HALF the effort. [place] lifts or holds trunk or limbs and provides more than half the effort. 8-Cpvjlkrxl-lupenb does ALL the effort. Patient does none of the effort to complete the activity. Or, the assistance of 2 or more helpers is required for the patient to complete the activity. If activity was not attempted, code reason: 7-Patient Refused. 9-Not Applicable-not attempted and the patient did not perform the activity before the current illness, exacerbation or injury. 10-Not Attempted due to Environmental Limitations-(lack of equipment, weather restraints, etc.). 88-Not Attempted due to Medical Conditions or Safety Concerns. Roll Left & Right (QC): 6 Sit to Lying (QC): 4 Lying to Sitting/Side of Bed(Q: 4 Sit to Stand (QC): 4 Gait Training Distance: 20' Walk 10 feet (QC): 4 Gait Persons Needed: 1 Gait Assistive Device: Cane Single Point Patient ambulates forward and back (limited by vapotherm line) about 5' each way for a total of 20' before patient's O2 drops rapidly into the 70's before she can get back to the bed and sit down. Patient lays down and O2 comes back up to 90% shortly with purse lip breathing. Exercises Supine Ex: Ankle pumps, Heel Slides Supine Reps: 20 Treatments bed mobility and transfers, ambulation, LE strengthening Assessment Current Status: Poor Progress O2 drops with activity PT Long-Term Goals Retail Event Assistant Goals PT Long-Term Goals Time Frame: Apr 25, 2021 Roll Left & Right (QC): 6 Sit to Lying (QC): 6 Lying-Sitting on Side/Bed(QC): 6 Sit to Stand (QC): 6 Chair/Cza-wv-Giubt Xfer(QC): 6 Toilet Transfer (QC): 6 Does the Patient Walk: Yes Walk 10 feet (QC): 5 Walk 50ft with 2 Turns (QC): 5 Walk 150 ft (QC): 5 PT Plan Problem List Problem List: Activity Tolerance, Functional Strength, Safety, Balance, Gait, Transfer, Bed Mobility, ROM Treatment/Plan Treatment Plan: Continue Plan of Care Treatment Plan: Bed Mobility, Education, Functional Activity Araceli, Functional Strength, Group Therapy, Gait, Safety, Therapeutic Exercise, Transfers Treatment Duration: May 09, 2021 Frequency: 6 times per week Estimated Hrs Per Day: .25 hour per day Patient and/or Family Agrees t: Yes Safety Risks/Education Patient Education: Gait Training, Transfer Techniques, Correct Positioning, Safety Issues Teaching Recipient: Patient Teaching Methods: Demonstration, Discussion Response to Teaching: Reinforcement Needed Time/GCodes Time In: 48 Time Out: 957 Total Billed Treatment Time: 10 Total Billed Treatment 1 visit FA BLAISE JOHN PT Apr 12, 2021 10:11
[2021-04-12] MEDS: HYDROcodone/APAP 5 MG/325 MG (LORTAB) TAB PO PRN (10:27)
[2021-04-12 11:01] VITALS: BP 124/65
[2021-04-12 16:17] VITALS: BP 189/83
[2021-04-12] MEDS ORDERED: amLODIPine 5 MG (NORVASC) TAB PO ONE (19:45)
[2021-04-12 20:10] VITALS: BP 184/80
[2021-04-12] MEDS: hydrALAZINE (APRESOLINE) 25 MG TAB PO SCH (20:26)
[2021-04-12] MEDS ORDERED: amLODIPine 5 MG (NORVASC) TAB ONE (21:48)
[2021-04-12 23:19] VITALS: BP 137/67
[2021-04-13] VITALS (7 sets, daily range): BP systolic 134–177; BP diastolic 61–85
[2021-04-13] MEDS: LEVOTHYROXINE 75 MCG (LEVOTHROID) TABLET PO SCH (06:10)
[2021-04-13] MEDS: VENlafaxine XR 75 MG (EFFEXOR XR) CAP PO SCH (06:10)
[2021-04-13] MEDS: ENALAPRILAT 2.5 MG/2 ML (VASOTEC) VIAL IV SCH ×3 (06:10→17:26)
[2021-04-13] MEDS: glipiZIDE 5 MG (GLUCOTROL) TAB PO SCH (06:10)
[2021-04-13 06:40] LABS: POTASSIUM 4.3 MMOL/L (3.6-5.0)
[2021-04-13 06:41] LABS: CALCIUM 8.6 MG/DL (8.5-10.1)
[2021-04-13 06:42] LABS: TOTAL PROTEIN 5.8 GM/DL (6.4-8.2)
[2021-04-13] MEDS: inSUlin ASPART (NovoLOG) 1 UNIT/0.01 ML (CHARGE PER UNIT) SQ SCH ×4 (06:42→21:19)
[2021-04-13 06:44] LABS: BILIRUBIN,TOTAL 0.6 MG/DL (0.1-1.0)
[2021-04-13 06:46] LABS: CREATININE SERUM 1.18 MG/DL (0.60-1.30)
--- NOTE | 2021-04-13 07:21 | Progress Note - Hospitalist ---
Subjective HPI/CC On Admission Date Seen by Provider: Apr 13, 2021 Time Seen by Provider: 12:00 Chief complaint: Acute on chronic hypoxic respiratory failure with COVID-19 pneumonia History present illness: This is a 75-year-old white female clinic patient of [facility] who has a history of morbid obesity with BMI of 49 who presents to the ER with shortness of breath. She was diagnosed with Covid and she is extremely high risk for intubation. She will think about Actemra after I discussed it with her. Patient's morbid obesity and chronic hypercapnic and hypoxic respiratory failure will place her at risk so she remains in the ICU. Vapotherm maintained but needs BiPAP. Subjective/Events-last exam Patient feels much better 3 L of oxygen maintain PT and OT ordered Discharge soon Review of Systems General: Fatigue, Malaise Pulmonary: Dyspnea Objective Exam Vital Signs Vital Signs Date Time Temp Pulse Resp B/P (MAP) Pulse Ox O2 Delivery O2 Flow Rate FiO2 04/14/21 04:00 35.2 46 20 166/73 (104) 99 High Flow N/C 3.00 04/12/21 10:38 40 Capillary Refill : Less Than 3 Seconds General Appearance: No Apparent Distress, WD/WN, Chronically ill, Obese Respiratory: Lungs Clear, Normal Breath Sounds, Decreased Breath Sounds Cardiovascular: Regular Rate, Rhythm Neurologic/Psychiatric: Alert, Oriented x3, No Motor/Sensory Deficits, Normal Mood/Affect Results/Procedures Lab Laboratory Tests 04/13/21 06:15 04/14/21 04:25 Patient resulted labs reviewed. Assessment/Plan Assessment and Plan Assess & Plan/Chief Complaint Assessment: Acute on chronic hypoxic hypercapnic respiratory failure COVID-19 pneumonia Super morbid obesity BMI of 49 Diabetes mellitus Hypothyroidism Anxiety Plan: Vapotherm BiPAP ICU 04/06/2021: Transfer to cardiac stepdown unit Anxiety management 04/07/2021: Vapotherm Anxiety treatment 04/08/2021: Supportive care Transfer to fourth floor 04/09/2021: Supportive care Wean Vapotherm Patient refuses to lie on her side or perform incentive spirometer 04/10/2021: Supportive care 04/12/2021: Plan for blood pressure meds Wean O2 04/13/2021: Discharge plan soon Diagnosis/Problems Diagnosis/Problems (1) Pneumonia due to COVID-19 virus Status: Acute (2) Hypoxia Status: Acute LEFTY QUIÑONES DO Apr 13, 2021 07:21
[2021-04-13] MEDS: amLODIPine 5 MG (NORVASC) TAB PO SCH (08:54)
[2021-04-13] MEDS: guaiFENesin (MUCINEX) 600 MG TAB PO SCH ×2 (08:54→21:18)
[2021-04-13] MEDS: VERAPAMIL SR 240 MG (CALAN SR) TAB PO SCH (08:54)
[2021-04-13] MEDS: ENOXAPARIN 40 MG/0.4 ML (LOVENOX) SYR SC SCH ×2 (08:55→21:18)
[2021-04-13] MEDS: hydrALAZINE (APRESOLINE) 25 MG TAB PO SCH ×3 (08:55→21:18)
[2021-04-13] MEDS: ESTRADIOL 1 MG TAB (ESTRACE) PO SCH (08:55)
[2021-04-13] MEDS: traZODone 50 MG (DESYREL) TAB PO PRN (21:18)
[2021-04-13] MEDS: HYDROcodone/APAP 5 MG/325 MG (LORTAB) TAB PO PRN (21:21)
[2021-04-14] MEDS: ENALAPRILAT 2.5 MG/2 ML (VASOTEC) VIAL IV SCH ×4 (00:07→17:26)
[2021-04-14 04:00] VITALS: BP 166/73
[2021-04-14 04:53] LABS: ALBUMIN 2.9 GM/DL (3.2-4.5); POTASSIUM 4.5 MMOL/L (3.6-5.0)
[2021-04-14 04:54] LABS: CALCIUM 8.6 MG/DL (8.5-10.1)
[2021-04-14 04:55] LABS: TOTAL PROTEIN 5.5 GM/DL (6.4-8.2)
[2021-04-14 04:57] LABS: BILIRUBIN,TOTAL 0.5 MG/DL (0.1-1.0)
[2021-04-14 04:59] LABS: CREATININE SERUM 1.21 MG/DL (0.60-1.30)
[2021-04-14] MEDS: inSUlin ASPART (NovoLOG) 1 UNIT/0.01 ML (CHARGE PER UNIT) SQ SCH ×4 (05:16→20:41)
[2021-04-14 05:25] LABS: BASOPHILS % (AUTO) 0 % (0-10); EOSINOPHILS % (AUTO) 0 % (0-10); HEMATOCRIT 45 % (35-52); HEMOGLOBIN 14.7 g/dL (11.5-16.0); LYMPHOCYTES # (AUTO) 1.7 10^3/uL (1.0-4.0); LYMPHOCYTES % (AUTO) 15 % (12-44); MEAN CORPUSCULAR HEMOGLOBIN 27 pg (25-34); MEAN CORPUSCULAR HGB CONC 33 g/dL (32-36); MEAN CORPUSCULAR VOLUME 83 fL (80-99); MEAN PLATELET VOLUME 10.4 fL (9.0-12.2); MONOCYTES # (AUTO) 1.2 10^3/uL (0.0-1.0); MONOCYTES % (AUTO) 11 % (0-12); NEUTROPHILS # (AUTO) 7.5 10^3/uL (1.8-7.8); NEUTROPHILS % (AUTO) 68 % (42-75); PLATELET COUNT 359 10^3/uL (130-400); WHITE BLOOD COUNT 11.1 10^3/uL (4.3-11.0)
[2021-04-14] MEDS: glipiZIDE 5 MG (GLUCOTROL) TAB PO SCH (05:50)
[2021-04-14] MEDS: LEVOTHYROXINE 75 MCG (LEVOTHROID) TABLET PO SCH (05:50)
[2021-04-14] MEDS: VENlafaxine XR 75 MG (EFFEXOR XR) CAP PO SCH (05:50)
[2021-04-14 08:07] VITALS: BP 180/82
[2021-04-14] MEDS: amLODIPine 5 MG (NORVASC) TAB PO SCH (09:16)
[2021-04-14] MEDS: ESTRADIOL 1 MG TAB (ESTRACE) PO SCH (09:16)
[2021-04-14] MEDS: VERAPAMIL SR 240 MG (CALAN SR) TAB PO SCH (09:16)
[2021-04-14] MEDS: hydrALAZINE (APRESOLINE) 25 MG TAB PO SCH ×3 (09:16→20:42)
[2021-04-14] MEDS: guaiFENesin (MUCINEX) 600 MG TAB PO SCH ×2 (09:18→20:42)
[2021-04-14] MEDS: ENOXAPARIN 40 MG/0.4 ML (LOVENOX) SYR SC SCH ×2 (09:19→20:42)
[2021-04-14 11:36] VITALS: BP 138/65
--- NOTE | 2021-04-14 13:00 | Occupational Ther Daily Note ---
OT Current Status-Daily Note Subjective Pt alert, lying in bed. Pt up ad cecilio in room. Pt agrees to therapy. Mental Status/Objective Patient Orientation: Person, Place, Time, Situation Attachments: IV, Oxygen (HiFlow 3L) ADL-Treatment Independent with toileting using BSC. Ambulated without AD to bathroom sink to complete washing hands and oral care independently. Pt able to go from supine <--> EOB independently with HOB slightly raised. After session, pt lying in bed with call light/phone in reach. All needs met in room. Therapy Code Descriptions/Definitions Functional [place] Measure: 0=Not Assessed/NA 4=Minimal Assistance 1=Total Assistance 5=Supervision or Setup 2=Maximal Assistance 6=Modified [place] 3=Moderate Assistance 7=Complete IndependenceSCALE: Activities may be completed with or without assistive devices. 2-Jwawhgyaww-ckccddh completes the activity by him/herself with no assistance from a helper. 5-Set-up or Clean-up Assistance-helper sets up or cleans up; patient completes activity. [place] assists only prior to or following the activity. 4-Supervision or Touching Assistance-helper provides verbal cues and/or touching/steadying and/or contact guard assistance as patient completes activity. Assistance may be provided throughout the activity or intermittently. 3-Partial/Moderate Assistance-helper does LESS THAN HALF the effort. [place] lifts, holds or supports trunk or limbs, but provides less than half the effort. 2-Substantial/Maximal Assistance-helper does MORE THAN HALF the effort. [place] lifts or holds trunk or limbs and provides more than half the effort. 4-Ctihsirbe-ybmlbm does ALL the effort. Patient does none of the effort to complete the activity. Or, the assistance of 2 or more helpers is required for the patient to complete the activity. If activity was not attempted, code reason: 7-Patient Refused. 9-Not Applicable-not attempted and the patient did not perform the activity bef ore the current illness, exacerbation or injury. 10-Not Attempted due to Environmental Limitations-(lack of equipment, weather r estraints, etc.). 88-Not Attempted due to Medical Conditions or Safety Concerns. Oral Hygiene (QC): 6 Toileting Hygiene (QC): 6 Toilet Transfer (QC): 6 OT Intermediate Goals Truck Engine Assembler Goals Time Frame: Apr 23, 2021 Toileting Hygiene (QC): 5 Shower/Bathe Self (QC): 4 Upper Body Dressing (QC): 5 Lower Body Dressing (QC): 4 On/Off Footwear (QC): 5 1=Demonstrate adherence to instructed precautions during ADL tasks. 2=Patient will verbalize/demonstrate understanding of assistive devices/modifications for ADL. 3=Patient will improve strength/tolerance for activity to enable patient to perform ADL's. OT Education/Plan Problem List/Assessment Assessment: Decreased Activ Tolerance Discharge Recommendations Plan/Recommendations: Continue POC Treatment Plan/Plan of Care Patient would benefit from OT for education, treatment and training to promote independence in ADL's, mobility, safety and/or upper extremity function for ADL's. Plan of Care: ADL Retraining, Functional Mobility, UE Funct Exercise/Act Treatment Duration: Apr 23, 2021 Frequency: 3 times per week Estimated Hrs Per Day: .25 hour per day Agreement: Yes Rehab Potential: Good Time/GCodes Start Time: 11:16 Stop Time: 11:37 Total Time Billed (hr/min): 21 Billed Treatment Time 1 visit-ADL 1 (21 min) SILVIA GALLOWAY Apr 14, 2021 13:00
--- NOTE | 2021-04-14 13:37 | Physical Therapy Daily Note ---
PT Daily Note-Current Subjective Patient agrees to PT. Currently eating in bed. Mental Status Patient Orientation: Normal For Age Attachments: Oxygen (2L NC HF) Transfers SCALE: Activities may be completed with or without assistive devices. 4-Ldqqhhrcjq-znkpjwx completes the activity by him/herself with no assistance from a helper. 5-Set-up or Clean-up Assistance-helper sets up or cleans up; patient completes activity. [place] assists only prior to or following the activity. 4-Supervision or Touching Assistance-helper provides verbal cues and/or touching/steadying and/or contact guard assistance as patient completes activity. Assistance may be provided throughout the activity or intermittently. 3-Partial/Moderate Assistance-helper does LESS THAN HALF the effort. [place] lifts, holds or supports trunk or limbs, but provides less than half the effort. 2-Substantial/Maximal Assistance-helper does MORE THAN HALF the effort. [place] lifts or holds trunk or limbs and provides more than half the effort. 3-Jdnfmwvcn-uqrros does ALL the effort. Patient does none of the effort to complete the activity. Or, the assistance of 2 or more helpers is required for the patient to complete the activity. If activity was not attempted, code reason: 7-Patient Refused. 9-Not Applicable-not attempted and the patient did not perform the activity before the current illness, exacerbation or injury. 10-Not Attempted due to Environmental Limitations-(lack of equipment, weather restraints, etc.). 88-Not Attempted due to Medical Conditions or Safety Concerns. Lying to Sitting/Side of Bed(Q: 6 Sit to Stand (QC): 6 Chair/Ivu-rz-Bawdm Xfer(QC): 6 Gait Training Does the Patient Walk?: Yes Distance: 150' in room Walk 10 feet (QC): 5 Walk 50 ft with 2 Turns(QC): 5 Walk 150 ft (QC): 5 Gait Assistive Device: Cane Single Point slow, steady gait sequence Assessment Current Status: Excellent Progress Up in recliner with needs met. SAO2 94% with activity on 2L. Patient hopes to go home soon. PT Drying Machine Tender Goals Alf Goals PT Alf Goals Time Frame: Apr 25, 2021 Roll Left & Right (QC): 6 Sit to Lying (QC): 6 Lying-Sitting on Side/Bed(QC): 6 Sit to Stand (QC): 6 Chair/Xsk-lz-Oamzq Xfer(QC): 6 Toilet Transfer (QC): 6 Does the Patient Walk: Yes Walk 10 feet (QC): 5 Walk 50ft with 2 Turns (QC): 5 Walk 150 ft (QC): 5 PT Plan Treatment/Plan Treatment Plan: Continue Plan of Care Treatment Plan: Bed Mobility, Education, Functional Activity Araceli, Functional Strength, Group Therapy, Gait, Safety, Therapeutic Exercise, Transfers Treatment Duration: May 09, 2021 Frequency: 6 times per week Estimated Hrs Per Day: .25 hour per day Patient and/or Family Agrees t: Yes Time/GCodes Time In: 1310 Time Out: 1321 Total Billed Treatment Time: 11 Total Billed Treatment 1 visit FA 11 min DEMETRIUS MOCK PT Apr 14, 2021 13:37
[2021-04-14] MEDS ORDERED: AMLO-250 PO (15:39)
[2021-04-14] MEDS ORDERED: amLODIPine 5 MG (NORVASC) TAB PO NR (15:45)
[2021-04-14 16:09] VITALS: BP 114/70
--- NOTE | 2021-04-14 19:19 | Progress Note ---
Subjective Subjective/Events-last exam Pt states she is feeling quite a bit better, has been able to get out of bed some. Objective Exam Last Set of Vital Signs Vital Signs Date Time Temp Pulse Resp B/P (MAP) Pulse Ox O2 Delivery O2 Flow Rate FiO2 04/14/21 16:09 35.4 50 20 114/70 (85) 92 Room Air 04/14/21 11:36 3.00 04/12/21 10:38 40 Capillary Refill : Less Than 3 Seconds I&O Intake and Output 04/14/21 00:00 Intake Total 1240 ml Output Total 1750 ml Balance -510 ml Intake Oral 1240 ml Output Urine Total 1750 ml General: Alert, No Acute Distress Lungs: Clear to Auscultation, Normal Air Movement Heart: Regular Rate, No Murmurs Abdomen: Normal Bowel Sounds, Soft Extremities: No Edema Neuro: Normal Speech Psych/Mental Status: Mood NL Results/Procedures Lab Laboratory Tests 04/14/21 04:25: White Blood Count 11.1H, Red Blood Count 5.40H, Hemoglobin 14.7, Hematocrit 45, Mean Corpuscular Volume 83, Mean Corpuscular Hemoglobin 27, Mean Corpuscular Hemoglobin Concent 33, Red Cell Distribution Width 13.6, Platelet Count 359, Mean Platelet Volume 10.4, Immature Granulocyte % (Auto) 5, Neutrophils (%) (Auto) 68, Lymphocytes (%) (Auto) 15, Monocytes (%) (Auto) 11, Eosinophils (%) (Auto) 0, Basophils (%) (Auto) 0, Neutrophils # (Auto) 7.5, Lymphocytes # (Auto) 1.7, Monocytes # (Auto) 1.2H, Eosinophils # (Auto) 0.0, Basophils # (Auto) 0.0, Immature Granulocyte # (Auto) 0.6H, Sodium Level 133L, Potassium Level 4.5, Chloride Level 102, Carbon Dioxide Level 23, Anion Gap 8, Blood Urea Nitrogen 38H, Creatinine 1.21, Estimat Glomerular Filtration Rate 43, BUN/Creatinine Ratio 31, Glucose Level 152H, Calcium Level 8.6, Corrected Calcium 9.5, Total Bilirubin 0.5, Aspartate Amino Transf (AST/SGOT) 14, Alanine Aminotransferase (ALT/SGPT) 73H, Alkaline Phosphatase 61, Total Protein 5.5L, Albumin 2.9L 04/14/21 11:39: Glucometer 74 04/14/21 15:55: Glucometer 109 Microbiology 04/05/21 MRSA Screen - Final, Complete MRSA not isolated Assessment/Plan Assessment/Plan (1) Pneumonia due to COVID-19 virus Status: Acute Assessment & Plan: Weaned down to minimal supplemental oxygen, s/p dexamethasone. Check for home supplemental oxygen need. (2) Hypothyroidism Status: Chronic (3) HTN (hypertension) Status: Acute (4) Diabetes mellitus, type 2 Status: Chronic Qualifiers: Qualified Codes: E11.65 - Type 2 diabetes mellitus with hyperglycemia (5) DVT prophylaxis Status: Acute Assessment & Plan: Enoxaparin PRAKASH SHARMA MD Apr 14, 2021 19:19
[2021-04-14 20:43] VITALS: BP 130/63
[2021-04-14] MEDS: HYDROcodone/APAP 5 MG/325 MG (LORTAB) TAB PO PRN (20:45)
[2021-04-14 23:37] VITALS: BP 101/49
[2021-04-15] MEDS: ENALAPRILAT 2.5 MG/2 ML (VASOTEC) VIAL IV SCH ×3 (00:03→12:07)
[2021-04-15 03:48] VITALS: BP 127/61
[2021-04-15 04:53] LABS: ALBUMIN 2.7 GM/DL (3.2-4.5); POTASSIUM 4.7 MMOL/L (3.6-5.0)
[2021-04-15 04:55] LABS: CALCIUM 8.6 MG/DL (8.5-10.1)
[2021-04-15 04:56] LABS: TOTAL PROTEIN 5.1 GM/DL (6.4-8.2)
[2021-04-15 04:58] LABS: BILIRUBIN,TOTAL 0.5 MG/DL (0.1-1.0)
[2021-04-15 04:59] LABS: CREATININE SERUM 1.5 MG/DL (0.60-1.30)
[2021-04-15] MEDS: glipiZIDE 5 MG (GLUCOTROL) TAB PO SCH (05:53)
[2021-04-15] MEDS: LEVOTHYROXINE 75 MCG (LEVOTHROID) TABLET PO SCH (05:53)
[2021-04-15] MEDS: inSUlin ASPART (NovoLOG) 1 UNIT/0.01 ML (CHARGE PER UNIT) SQ SCH ×3 (05:53→15:37)
[2021-04-15] MEDS: VENlafaxine XR 75 MG (EFFEXOR XR) CAP PO SCH (05:53)
[2021-04-15 08:00] VITALS: BP 131/60
[2021-04-15] MEDS ORDERED: amLODIPine 5 MG (NORVASC) TAB PO SCH (09:00)
[2021-04-15] MEDS: hydrALAZINE (APRESOLINE) 25 MG TAB PO SCH ×2 (09:07→12:06)
[2021-04-15] MEDS: ENOXAPARIN 40 MG/0.4 ML (LOVENOX) SYR SC SCH (09:07)
[2021-04-15] MEDS: guaiFENesin (MUCINEX) 600 MG TAB PO SCH (09:07)
[2021-04-15] MEDS: VERAPAMIL SR 240 MG (CALAN SR) TAB PO SCH (09:07)
[2021-04-15] MEDS: ESTRADIOL 1 MG TAB (ESTRACE) PO SCH (09:07)
[2021-04-15 13:11] LABS: POTASSIUM 4.7 MMOL/L (3.6-5.0)
[2021-04-15 13:13] LABS: CALCIUM 8.7 MG/DL (8.5-10.1)
[2021-04-15 13:17] LABS: CREATININE SERUM 1.4 MG/DL (0.60-1.30)
[2021-04-15 15:27] VITALS: BP 111/53
--- NOTE | 2021-04-15 16:01 | Discharge Summary ---
Discharge Summary Hospital Course Problems/Diagnosis: (1) Pneumonia due to COVID-19 virus Status: Acute Assessment & Plan: Weaned down to minimal supplemental oxygen, s/p dexamethasone and did not require supplemental oxygen for 24 hours before discharge. (2) Hypothyroidism Status: Chronic (3) HTN (hypertension) Status: Acute Assessment & Plan: Started amlodipine for BP control. Qualifiers: Qualified Codes: I10 - Essential (primary) hypertension (4) Diabetes mellitus, type 2 Status: Chronic Qualifiers: Qualified Codes: E11.65 - Type 2 diabetes mellitus with hyperglycemia (5) Chronic kidney disease Status: Chronic Assessment & Plan: Creatinine down to normal range, but back up to 1.5 on d/c, reviewed clinic chart, creatinine 1.3-1.5 since June 2020. Hospital Course Date of Admission: Apr 04, 2021 at 18:55 Admission Diagnosis : Family Physician/Provider: Papi Zarate MD Date of Discharge: 04/15/21 Discharge Diagnosis: See problem list Hospital Course: See problem list Labs and Pending Lab Test: Laboratory Tests 04/14/21 20:21: Glucometer 47*L 04/14/21 20:40: Glucometer 143H 04/14/21 23:36: Glucometer 191H 04/15/21 04:10: Sodium Level 129L, Potassium Level 4.7, Chloride Level 100, Carbon Dioxide Level 21, Anion Gap 8, Blood Urea Nitrogen 50H, Creatinine 1.50H, Estimat Glomerular Filtration Rate 34, BUN/Creatinine Ratio 33, Glucose Level 120H, Calcium Level 8.6, Corrected Calcium 9.6, Total Bilirubin 0.5, Aspartate Amino Transf (AST/SGOT) 18, Alanine Aminotransferase (ALT/SGPT) 66H, Alkaline Phosphatase 63, Total Protein 5.1L, Albumin 2.7L 04/15/21 12:54: Sodium Level 130L, Potassium Level 4.7, Chloride Level 101, Carbon Dioxide Level 24, Anion Gap 5, Blood Urea Nitrogen 49H, Creatinine 1.40H, Estimat Glomerular Filtration Rate 37, BUN/Creatinine Ratio 35, Glucose Level 83, Calcium Level 8.7 04/15/21 15:29: Glucometer 156H Microbiology 04/05/21 MRSA Screen - Final, Complete MRSA not isolated Home Meds Active Amlodipine Besylate 5 Mg Tablet 10 Mg PO DAILY Reported Trazodone HCl 50 Mg Tablet 50 Mg PO HS PRN Hydroxyzine HCl 50 Mg Tablet 50 Mg PO BID PRN Tizanidine HCl 2 Mg Tablet 2 Mg PO BID Desvenlafaxine ER (Desvenlafaxine) 100 Mg Tab.er.24h 100 Mg PO DAILY Ondansetron HCl 4 Mg Tablet 4 Mg PO Q4H PRN Glipizide 10 Mg Tablet 10 Mg PO DAILY Estrace Tablet (Estradiol) 0.5 Mg Tablet 0.5 Mg PO DAILY Verapamil ER (Verapamil HCl) 120 Mg Tablet.er 120 Mg PO DAILY Atorvastatin Calcium 40 Mg Tablet 40 Mg PO DAILY Levothyroxine Sodium 75 Mcg Tablet 75 Mcg PO DAILY Coreg (Carvedilol) 25 Mg Tab 25 Mg PO BID Assessment/Pt DC Instructions Recommend discontinuing estrogen due to increased risk of blood clot especially with recent COVID infection. Discharge Diet: ADA Diet Activity as Tolerated: Yes Discharge Physical Examination Allergies: Coded Allergies: No Known Drug Allergies (Unverified , 04/17/19) General Appearance: No Apparent Distress Respiratory: Lungs Clear Cardiovascular: Regular Rate, Rhythm, No Murmur Skin: Normal Color, Warm/Dry Neurologic/Psychiatric: Alert, Normal Mood/Affect PRAKASH SHARMA MD Apr 15, 2021 16:01
[2021-04-15 17:59] VITALS: BP 111/53
== END 2021-04-15 17:40 | disposition home or self-care (01) | DRG 177 ==
LOC: EDUNIT# 17:16 → ER 17:18 → ICU 18:55 → CSD 04-06 16:13 → 4TH 04-09 13:58
PROVIDERS: ADMIT Internal Medicine; ATTEND Family Medicine
PROC: 5A09357 Assistance with Respiratory Ventilation, Less than 24 Consecutive Hours, Continuous Positive Airway Pressure (ICD-10-PCS; principal; 2021-04-04)
PROC: 5A0955A Assistance with Respiratory Ventilation, Greater than 96 Consecutive Hours, High Flow/Velocity Cannula (ICD-10-PCS; 2021-04-08)
DX: U07.1 COVID-19 (principal); J12.82 Pneumonia due to coronavirus disease 2019; J96.21 Acute and chronic respiratory failure with hypoxia; J96.22 Acute and chronic respiratory failure with hypercapnia; Z68.42 Body mass index [BMI] 45.0-49.9, adult; N17.9 Acute kidney failure, unspecified; E66.01 Morbid (severe) obesity due to excess calories; I12.9 Hypertensive chronic kidney disease with stage 1 through stage 4 chronic kidney disease, or unspecified chronic kidney disease; E11.22 Type 2 diabetes mellitus with diabetic chronic kidney disease; E11.65 Type 2 diabetes mellitus with hyperglycemia; N18.9 Chronic kidney disease, unspecified; Z79.84 Long term (current) use of oral hypoglycemic drugs; E78.00 Pure hypercholesterolemia, unspecified; E03.9 Hypothyroidism, unspecified; M19.91 Primary osteoarthritis, unspecified site; F41.0 Panic disorder [episodic paroxysmal anxiety]; G47.33 Obstructive sleep apnea (adult) (pediatric); H54.7 Unspecified visual loss; Z73.0 Burn-out
CPT/HCPCS: 36410; 36415; 71045; 76937; 80048; 80053; 82805; 82947; 83735; 83880; 84100; 84145; 85007; 85025; 85027; 85379; 85610; 86141; 87081; 93005; 94660; 94760; 94761; 96365; 96375

== ENCOUNTER 2021-09-14 12:05 | Emergency (ER) | payer MEDICARE ==
[~2021-09-14] VITALS: Ht 160 cm; Wt 117.9 kg
[~2021-09-14 12:05] MED LIST changes: +AMLO-250 PO
--- NOTE | 2021-09-14 12:11 | ED General ---
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 Patient has pain 10/10. Patient states that the pain is radiating into her left lower chest as well. Denies shortness of breath, diarrhea, nausea and vomiting, fever. Allergies and Home Medications Allergies Coded Allergies: No Known Drug Allergies (Unverified , 04/17/19) Patient Home Medication List Home Medication List Reviewed: Yes Amlodipine Besylate (Amlodipine Besylate) 5 Mg Tablet, 10 MG PO DAILY Prescribed by: PRAKASH SHARMA on 04/14/21 1539 Atorvastatin Calcium (Atorvastatin Calcium) 40 Mg Tablet, 40 MG PO DAILY, (Reported) Entered as Reported by: TO CHACON on 04/18/19 0944 Carvedilol (Coreg) 25 Mg Tab, 25 MG PO BID, (Reported) Entered as Reported by: TO CHACON on 04/18/19 0944 Desvenlafaxine (Desvenlafaxine ER) 100 Mg Tab.er.24h, 100 MG PO DAILY, (Reported) Entered as Reported by: KHLOE FORD on 01/21/21 1048 Glipizide (Glipizide) 10 Mg Tablet, 10 MG PO DAILY, (Reported) Entered as Reported by: TO CHACON on 04/18/19 0944 Hydroxyzine HCl (Hydroxyzine HCl) 50 Mg Tablet, 50 MG PO BID PRN for ANXIETY, (Reported) Entered as Reported by: KHLOE FORD on 01/21/21 1048 Levothyroxine Sodium (Levothyroxine Sodium) 75 Mcg Tablet, 75 MCG PO DAILY, (Reported) Entered as Reported by: TO CHACON on 04/18/19 0944 Ondansetron HCl (Ondansetron HCl) 4 Mg Tablet, 4 MG PO Q4H PRN for NAUSEA/VOMITING, (Reported) Entered as Reported by: KHLOE FORD on 01/21/21 1048 Tizanidine HCl (Tizanidine HCl) 2 Mg Tablet, 2 MG PO BID, (Reported) Entered as Reported by: KHLOE FORD on 01/21/21 1048 Trazodone HCl (Trazodone HCl) 50 Mg Tablet, 50 MG PO HS PRN for SLEEP, (Reported) Entered as Reported by: ALYSSA VITAL on 02/20/21 1437 Verapamil HCl (Verapamil ER) 120 Mg Tablet.er, 120 MG PO DAILY, (Reported) Entered as Reported by: TO CHACON on 04/18/19 0944 Review of Systems Review of Systems Constitutional: chills EENTM: no symptoms reported Respiratory: no symptoms reported Cardiovascular: chest pain Gastrointestinal: LUQ, abdominal pain (LUQ), loss of appetite Genitourinary: no symptoms reported Musculoskeletal: no symptoms reported Skin: no symptoms reported Psychiatric/Neurological: No Symptoms Reported Hematologic/Lymphatic: No Symptoms Reported Immunological/Allergic: no symptoms reported Past Lelsazr-Sqwraj-Gccmgd Hx Immunizations Up To Date First/Initial COVID19 Vaccinat: N/A Second COVID19 Vaccination Babatunde: N/A Third COVID19 Vaccination Date: N/A Seasonal Allergies Seasonal Allergies: No Past Medical History Surgery/Hospitalization HX: HTN; High cholesterol; DM; Hypothyroidism Surgeries: Yes (GROWTH REMOVED FROM RIGHT RELIGIOUS, NASAL SURGERY) Appendectomy, Gallbladder, Hysterectomy, Nose Respiratory: No Currently Using CPAP: No Currently Using BIPAP: No Cardiac: Yes High Cholesterol, Hypertension Neurological: Yes Headaches /Migraines, Neuropathy, Stroke Female 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 Sexually Transmitted Disease: No HIV/AIDS: No Genitourinary: No Gastrointestinal: No Musculoskeletal: Yes Arthritis Endocrine: Yes Hypothyroidsim, Diabetes, Non-Insulin dep HEENT: Yes (WEARS GLASSES) Loss of Vision: Denies Hearing Impairment: Denies Cancer: Yes Skin What Type of Treatment Did You: Surgical Intervention Psychosocial: Yes Sleep Difficulties, Anxiety, Depression Integumentary: No Blood Disorders: No Family Medical History No Pertinent Family Hx, Lung Disease, Other Conditions/Hx Physical Exam Vital Signs Vital Signs - First Documented 09/14/21 12:11 Temp 37.0 Pulse 81 Resp 19 B/P (MAP) 132/80 (97) O2 Delivery Room Air Capillary Refill : Height, Weight, BMI Height: '" Weight: lbs. oz. kg; 46.05 BMI Method: General Appearance: Moderate Distress HEENT: PERRL/EOMI, Moist Mucous Membranes Neck: Full Range of Motion Respiratory: Chest Non Tender, Lungs Clear Cardiovascular: Regular Rate, Rhythm Gastrointestinal: Normal Bowel Sounds, No Pulsatile Mass, Soft, Tenderness (Tenderness in left upper quadrant) Back: Normal Inspection, No CVA Tenderness Neurologic/Psychiatric: Alert, Oriented x3, No Motor/Sensory Deficits, Normal Mood/Affect Skin: Normal Color Lymphatic: No Adenopathy Focused Exam Lactate Level 09/14/21 15:30: Lactic Acid Level 2.11*H Lactic Acid Level Laboratory Tests Test 09/14/21 15:30 Lactic Acid Level 2.11 MMOL/L (0.50-2.00) *H Progress/Results/Core Measures Suspected Sepsis SIRS Temperature: Pulse: Respiratory Rate: Laboratory Tests 09/14/21 12:20: White Blood Count 17.6H Blood Pressure / Mean: 09/14/21 15:30: Lactic Acid Level 2.11*H Laboratory Tests 09/14/21 12:20: Creatinine 1.29, INR Comment 1.0, Platelet Count 281, Total Bilirubin 0.3 Results/Orders Lab Results Laboratory Tests Test 09/14/21 12:20 09/14/21 12:43 09/14/21 15:30 Range/Units White Blood Count 17.6 H 4.3-11.0 10^3/uL Red Blood Count 5.51 H 3.80-5.11 10^6/uL Hemoglobin 14.6 11.5-16.0 g/dL Hematocrit 45 35-52 % Mean Corpuscular Volume 81 80-99 fL Mean Corpuscular Hemoglobin 27 25-34 pg Mean Corpuscular Hemoglobin Concent 33 32-36 g/dL Red Cell Distribution Width 13.6 10.0-14.5 % Platelet Count 281 130-400 10^3/uL Mean Platelet Volume 10.3 9.0-12.2 fL Immature Granulocyte % (Auto) 1 % Neutrophils (%) (Auto) 72 42-75 % Lymphocytes (%) (Auto) 18 12-44 % Monocytes (%) (Auto) 8 0-12 % Eosinophils (%) (Auto) 1 0-10 % Basophils (%) (Auto) 0 0-10 % Neutrophils # (Auto) 12.7 H 1.8-7.8 10^3/uL Lymphocytes # (Auto) 3.2 1.0-4.0 10^3/uL Monocytes # (Auto) 1.3 H 0.0-1.0 10^3/uL Eosinophils # (Auto) 0.2 0.0-0.3 10^3/uL Basophils # (Auto) 0.1 0.0-0.1 10^3/uL Immature Granulocyte # (Auto) 0.1 0.0-0.1 10^3/uL Neutrophils % (Manual) 70 % Lymphocytes % (Manual) 19 % Monocytes % (Manual) 7 % Eosinophils % (Manual) 4 % Prothrombin Time 13.2 12.2-14.7 SEC INR Comment 1.0 0.8-1.4 Activated Partial Thromboplast Time 24 24-35 SEC D-Dimer 2.21 H 0.00-0.49 UG/ML Sodium Level 136 135-145 MMOL/L Potassium Level 4.7 3.6-5.0 MMOL/L Chloride Level 102 98-107 MMOL/L Carbon Dioxide Level 23 21-32 MMOL/L Anion Gap 11 5-14 MMOL/L Blood Urea Nitrogen 22 H 7-18 MG/DL Creatinine 1.29 0.60-1.30 MG/DL Estimat Glomerular Filtration Rate 43 BUN/Creatinine Ratio 17 Glucose Level 202 H 70-105 MG/DL Calcium Level 9.4 8.5-10.1 MG/DL Corrected Calcium 9.6 8.5-10.1 MG/DL Total Bilirubin 0.3 0.1-1.0 MG/DL Aspartate Amino Transf (AST/SGOT) 14 5-34 U/L Alanine Aminotransferase (ALT/SGPT) 16 0-55 U/L Alkaline Phosphatase 106 40-136 U/L Troponin I < 0.30 <0.30 NG/ML Pro-B-Type Natriuretic Peptide 183.5 H <75.0 PG/ML Total Protein 6.7 6.4-8.2 GM/DL Albumin 3.8 3.2-4.5 GM/DL Lipase 23 8-78 U/L Urine Opiates Screen POSITIVE H NEGATIVE Urine Oxycodone Screen NEGATIVE NEGATIVE Urine Methadone Screen NEGATIVE NEGATIVE Urine Propoxyphene Screen NEGATIVE NEGATIVE Urine Barbiturates Screen NEGATIVE NEGATIVE Ur Tricyclic Antidepressants Screen NEGATIVE NEGATIVE Urine Phencyclidine Screen NEGATIVE NEGATIVE Urine Amphetamines Screen NEGATIVE NEGATIVE Urine Methamphetamines Screen NEGATIVE NEGATIVE Urine Benzodiazepines Screen NEGATIVE NEGATIVE Urine Cocaine Screen NEGATIVE NEGATIVE Urine Cannabinoids Screen NEGATIVE NEGATIVE Lactic Acid Level 2.11 *H 0.50-2.00 MMOL/L My Orders Orders - LARISSA WOOD MD Ekg Tracing (09/14/21 12:41) Cbc With Automated Diff (09/14/21 13:00) Chest 1 View Ap/Pa Only (09/14/21 13:00) Ekg Tracing (09/14/21 13:00) Comprehensive Metabolic Panel (09/14/21 13:00) Protime With Inr (09/14/21 13:00) Partial Thromboplastin Time (09/14/21 13:00) O2 (09/14/21 13:00) Monitor-Rhythm Ecg Trace Only (09/14/21 13:00) Aspirin Chewable Tablet (Baby Aspirin Ch (09/14/21 13:00) Morphine Injection (Morphine Injection (09/14/21 13:00) Ed Iv/Invasive Line Start (09/14/21 13:00) Lipase (09/14/21 13:00) Fibrin Degradation Products (09/14/21 13:00) Troponin I Fs (09/14/21 13:00) Probnp Fs (09/14/21 13:00) Ct Abdomen/Pelvis W (09/14/21 13:01) Ed Iv/Invasive Line Start (09/14/21 13:01) Ns Iv 1000 Ml (Sodium Chloride 0.9%) (09/14/21 13:15) Famotidine Injection (Pepcid Injection) (09/14/21 13:01) Drug Screen Stat (Urine) (09/14/21 13:02) Manual Differential (09/14/21 12:20) Iohexol Injection (Omnipaque 350 Mg/Ml 1 (09/14/21 14:00) Received Contrast (Hold Metformin- Contr (09/14/21 14:00) Sodium Chloride Flush (Catheter Flush Sy (09/14/21 14:00) Ns (Ivpb) (Sodium Chloride 0.9% Ivpb Bag (09/14/21 14:00) Ct Angio Chest W (09/14/21 15:10) Hydromorphone Injection (Dilaudid Inject (09/14/21 15:15) Ceftriaxone 1 Gm Pre-Mix (Rocephin 1 Gm (09/14/21 15:30) Azithromycin Injection (Zithromax Inject (09/14/21 15:30) Iohexol Injection (Omnipaque 350 Mg/Ml 1 (09/14/21 15:30) Received Contrast (Hold Metformin- Contr (09/14/21 15:30) Sodium Chloride Flush (Catheter Flush Sy (09/14/21 15:30) Ns (Ivpb) (Sodium Chloride 0.9% Ivpb Bag (09/14/21 15:30) Blood Culture (09/14/21 15:28) Lactic Acid Analyzer (09/14/21 15:28) Medications Given in ED Current Medications Medications Dose Ordered Sig/Sandra Route Start Time Stop Time Status Last Admin Dose Admin Aspirin 324 mg ONCE ONCE PO 09/14/21 13:00 09/14/21 13:01 DC 09/14/21 13:18 324 MG Iohexol 80 ml ONCE ONCE IV 09/14/21 15:30 09/14/21 15:31 DC 09/14/21 15:32 80 ML Iohexol 100 ml ONCE ONCE IV 09/14/21 14:00 09/14/21 14:01 DC 09/14/21 14:08 100 ML Sodium Chloride 10 ml NEEDED PRN IV 09/14/21 14:00 09/14/21 15:32 10 ML Sodium Chloride 100 ml ONCE ONCE IV 09/14/21 14:00 09/14/21 14:01 DC 09/14/21 14:08 100 ML Sodium Chloride 100 ml ONCE ONCE IV 09/14/21 15:30 09/14/21 15:31 DC 09/14/21 15:32 100 ML Vital Signs/I&O 09/14/21 12:11 Temp 37.0 Pulse 81 Resp 19 B/P (MAP) 132/80 (97) O2 Delivery Room Air Capillary Refill : Progress Note : Progress Note 1. 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 There is also a plaque at the diaphragmatic hiatus which may represent the source of the embolic phenomenon. - Morphine 1mg iv STAT/ later gave Diaudid for pain control - Discussed with hospitalist at [facility], and accepted for admission 2. LEFT BASILAR PNEUMONIA: - CXR:left lung base infiltrates - WBC is 17.6 with a left shift - Ceftriaxone 1gm iv & Azithro 500mg iv - NS IVF bolus 3. ELEVATED D-DIMER: - D-dimer is 2.21 - CTA CHEST: no PE Diagnostic Imaging Diagonstic Imaging: Xray, CT Plain Films/CT/US/NM/MRI: chest, abdomen Comments [facility] [place], [place] NAME: [facility] REC#: [id number] PT STATUS: REG ER : 1945 PHYSICIAN: LARISSA WOOD MD ADMIT DATE: 09/14/21/ER FS Draft Date of Exam:09/14/21 CT ANGIO CHEST W EXAMINATION: CT angiography of the chest. TECHNIQUE: Contrast enhanced thin section helical images were obtained through the chest with intravenous contrast timed for the optimal opacification of the arterial structures per CTA protocol. Post-processing, reconstructions and interpretation of angiographic images of the vessels was performed. 3D MIP reconstructions were performed and reviewed. All CT scans use one or more of the following dose optimizing techniques: automated exposure control, MA and/or KvP adjustment based on patient size and exam type or iterative reconstruction. HISTORY: Elevated D-dimer. COMPARISON: None available. FINDINGS: There is no pulmonary embolism. There is no edema or pneumonia. No pleural effusion. No pneumothorax. No suspicious nodules. There is mild bibasilar atelectasis. There is no axillary or supraclavicular lymphadenopathy. There is no mediastinal lymphadenopathy. Heart size is normal. There are mild coronary artery calcifications. No pericardial effusion. Aorta is normal in caliber. Limited views of the upper abdomen show a large splenic infarct. There are no suspicious osseus lesions. IMPRESSION: 1. No pulmonary embolism. 2. Large splenic infarct. Dictated on workstation # [id number] Dict: 09/14/21 1551 Trans: 09/14/21 1558 [facility] [id number] Interpreted by: ALEK HUDSON MD Electronically signed by: PT STATUS: REG ER : 1945 PHYSICIAN: LARISSA WOOD MD ADMIT DATE: 09/14/21/ER FS Signed Date of Exam:09/14/21 CT ABDOMEN/PELVIS W EXAMINATION: CT abdomen and pelvis with intravenous contrast. TECHNIQUE: Multiple contiguous axial images were obtained through the abdomen and pelvis after the uneventful administration of intravenous contrast. All CT scans use one or more of the following dose optimizing techniques: automated exposure control, MA and/or KvP adjustment based on patient size and exam type or iterative reconstruction. HISTORY: Abdominal pain COMPARISON: 04/02/2021 FINDINGS: Limited views of the lower thorax show mild bibasilar atelectasis. The liver is normal without focal lesion. There is no biliary ductal dilation. Gallbladder is normal. Pancreas is normal. There is a large splenic infarct. Adrenal glands are normal. There is cortical scarring in the lower pole of the left kidney. There are few renal cysts. No suspicious renal lesions. No hydronephrosis. There is no hydronephrosis. Urinary bladder is normal. There is diverticulosis without diverticulitis. No free fluid or air. No abdominal or pelvic lymphadenopathy. Aorta is atherosclerotic with ulcerative plaque at the diaphragmatic hiatus. There are no suspicious osseus lesions. IMPRESSION: 1. Large splenic infarct. There is also a plaque at the diaphragmatic hiatus which may represent the source of the embolic phenomenon. Dictated by: Dictated on workstation # [id number] Dict: 09/14/21 1418 Trans: 09/14/21 1448 CV [id number] Interpreted by: ALEK HUDSON MD Electronically signed by: ALEK HUDSON MD 09/14/21 1448 Departure Communication (Admissions) Time/Spoke to Consulting Phy: 15:[address] Rocha, recommended to tansfer to a facility having appropriate consults such as GI/ vasc surgery, etc Impression Primary Impression: Splenic infarct Additional Impressions: Left lower lobe pneumonia Qualified Codes: J18.9 - Pneumonia, unspecified organism Elevated d-dimer Disposition: XF [facility] Condition: Stable Transfer Transfer Reason: Exceeds level of care Time Spoke to Accepting Phy: 15:47 Transfer Progress Notes Discussed with Dr Diaz, accepted for transfer Transfer Facility: [facility] Method of Transfer: EMS Departure-Patient Inst. Referrals: YANELI RIVER MD (PCP/Family) Primary Care Physician LARISSA WOOD MD Sep 14, 2021 12:11
[2021-09-14] MEDS ORDERED: morphine INJ 10 MG/ML 1ML (SYR OR VIAL) IVP STA (13:00)
[2021-09-14] MEDS ORDERED: ASPIRIN 81 MG CHEW (CHILDREN'S ASA) PO ONE (13:00)
[2021-09-14] MEDS ORDERED: FAMOTIDINE 20MG/2ML IV (PEPCID) IV STA (13:01)
[2021-09-14 13:03] LABS: PROTHROMBIN TIME PATIENT 13.2 SEC (12.2-14.7)
[2021-09-14 13:04] LABS: BASOPHILS # (AUTO) 0.1 10^3/uL (0.0-0.1); BASOPHILS % (AUTO) 0 % (0-10); EOSINOPHILS # (AUTO) 0.2 10^3/uL (0.0-0.3); EOSINOPHILS % (AUTO) 1 % (0-10); HEMATOCRIT 45 % (35-52); HEMOGLOBIN 14.6 g/dL (11.5-16.0); LYMPHOCYTES # (AUTO) 3.2 10^3/uL (1.0-4.0); LYMPHOCYTES % (AUTO) 18 % (12-44); MEAN CORPUSCULAR HEMOGLOBIN 27 pg (25-34); MEAN CORPUSCULAR HGB CONC 33 g/dL (32-36); MEAN CORPUSCULAR VOLUME 81 fL (80-99); MEAN PLATELET VOLUME 10.3 fL (9.0-12.2); MONOCYTES # (AUTO) 1.3 10^3/uL (0.0-1.0); MONOCYTES % (AUTO) 8 % (0-12); NEUTROPHILS # (AUTO) 12.7 10^3/uL (1.8-7.8); NEUTROPHILS % (AUTO) 72 % (42-75); PLATELET COUNT 281 10^3/uL (130-400); POTASSIUM 4.7 MMOL/L (3.6-5.0); WHITE BLOOD COUNT 17.6 10^3/uL (4.3-11.0)
[2021-09-14 13:05] LABS: ALBUMIN 3.8 GM/DL (3.2-4.5); BILIRUBIN,TOTAL 0.3 MG/DL (0.1-1.0); CALCIUM 9.4 MG/DL (8.5-10.1); CREATININE SERUM 1.29 MG/DL (0.60-1.30); TOTAL PROTEIN 6.7 GM/DL (6.4-8.2)
[2021-09-14] MEDS ORDERED: NS IV 1000 ML 1,000 ML IV SCH (13:15)
[2021-09-14 13:22] LABS: AMPHETAMINE SCREEN, URINE NEGATIVE (NEGATIVE); BARBITURATE SCREEN URINE NEGATIVE (NEGATIVE); BENZODIAZEPINES SCREEN URINE NEGATIVE (NEGATIVE); CANNABINOID SCREEN, URINE NEGATIVE (NEGATIVE); COCAINE SCREEN URINE NEGATIVE (NEGATIVE); METHADONE STAT NEGATIVE (NEGATIVE); OPIATE SCREEN URINE POSITIVE (NEGATIVE); OXYCODONE STAT NEGATIVE (NEGATIVE); PROPOXYPHENE STAT NEGATIVE (NEGATIVE); TRICYCLIC ANTIDEPRESSANTS SCRE NEGATIVE (NEGATIVE)
--- NOTE | 2021-09-14 13:43 | Diagnostic Imaging Report ---
INDICATION: Right lower chest, right upper quadrant abdominal pain. TECHNIQUE: Single-view chest at 01:11 p.m. CORRELATION STUDY: 04/08/2021. FINDINGS: There is patchy infiltrate-like opacity at the left lung base. Remaining lung lu are generally clear. Heart size is enlarged. Mediastinum is mildly prominent. Vasculature is overall within normal limits. IMPRESSION: 1. Infiltrate is suggested at the left lung base, may be reflective of left basilar pneumonia. Follow-up imaging would be recommended. 2. Cardiac enlargement, stable without overt failure. Dictated by: Dictated on workstation # [id number]
[2021-09-14 13:55] LABS: EOSINOPHILS % (MANUAL) 4 %; LYMPHOCYTES % (MANUAL) 19 %; MONOCYTES % (MANUAL) 7 %; NEUTROPHILS % (MANUAL) 70 %
[2021-09-14] MEDS ORDERED: HOLD METFORMIN - RECEIVED CONTRAST 20 ML VIAL IV SCH ×2 (14:00→15:30)
[2021-09-14] MEDS ORDERED: IOHEXOL 350 MG/ML 100 ML (OMNIPAQUE 350) VIAL IV ONE ×2 (14:00→15:30)
[2021-09-14] MEDS ORDERED: NS 100 ML (IVPB) BAG IV ONE ×2 (14:00→15:30)
[2021-09-14] MEDS: CATHETER FLUSH 10 ML SYR IV PRN ×2 (14:08→15:32)
--- NOTE | 2021-09-14 14:24 | Diagnostic Imaging Report ---
EXAMINATION: CT abdomen and pelvis with intravenous contrast. TECHNIQUE: Multiple contiguous axial images were obtained through the abdomen and pelvis after the uneventful administration of intravenous contrast. All CT scans use one or more of the following dose optimizing techniques: automated exposure control, MA and/or KvP adjustment based on patient size and exam type or iterative reconstruction. HISTORY: Abdominal pain COMPARISON: 04/02/2021 FINDINGS: Limited views of the lower thorax show mild bibasilar atelectasis. The liver is normal without focal lesion. There is no biliary ductal dilation. Gallbladder is normal. Pancreas is normal. There is a large splenic infarct. Adrenal glands are normal. There is cortical scarring in the lower pole of the left kidney. There are few renal cysts. No suspicious renal lesions. No hydronephrosis. There is no hydronephrosis. Urinary bladder is normal. There is diverticulosis without diverticulitis. No free fluid or air. No abdominal or pelvic lymphadenopathy. Aorta is atherosclerotic with ulcerative plaque at the diaphragmatic hiatus. There are no suspicious osseus lesions. IMPRESSION: 1. Large splenic infarct. There is also a plaque at the diaphragmatic hiatus which may represent the source of the embolic phenomenon. Dictated by: Dictated on workstation # [id number]
[2021-09-14] MEDS ORDERED: HYDROmorphone 2 MG/ML VIAL (DILAUDID) IV ONE (15:15)
[2021-09-14] MEDS ORDERED: cefTRIAXone 1 GM PRE-MIX 50 ML IV ONE (15:30)
[2021-09-14] MEDS ORDERED: CATHETER FLUSH 10 ML SYR IV PRN (15:30)
[2021-09-14] MEDS ORDERED: AZITHROMYCIN INJECTION 500 MG in NS (IVPB) 250 ML IV ONE (15:30)
--- NOTE | 2021-09-14 15:59 | Diagnostic Imaging Report ---
EXAMINATION: CT angiography of the chest. TECHNIQUE: Contrast enhanced thin section helical images were obtained through the chest with intravenous contrast timed for the optimal opacification of the arterial structures per CTA protocol. Post-processing, reconstructions and interpretation of angiographic images of the vessels was performed. 3D MIP reconstructions were performed and reviewed. All CT scans use one or more of the following dose optimizing techniques: automated exposure control, MA and/or KvP adjustment based on patient size and exam type or iterative reconstruction. HISTORY: Elevated D-dimer. COMPARISON: None available. FINDINGS: There is no pulmonary embolism. There is no edema or pneumonia. No pleural effusion. No pneumothorax. No suspicious nodules. There is mild bibasilar atelectasis. There is no axillary or supraclavicular lymphadenopathy. There is no mediastinal lymphadenopathy. Heart size is normal. There are mild coronary artery calcifications. No pericardial effusion. Aorta is normal in caliber. Limited views of the upper abdomen show a large splenic infarct. There are no suspicious osseus lesions. IMPRESSION: 1. No pulmonary embolism. 2. Large splenic infarct. Dictated by: Dictated on workstation # [id number]
[2021-09-14 18:56] VITALS: BP 142/82
== END 2021-09-14 19:30 | disposition short-term general hospital (02) ==
LOC: EDUNIT# 12:05 → ER FS 12:07
DX: J18.9 Pneumonia, unspecified organism (principal); D73.5 Infarction of spleen; R79.1 Abnormal coagulation profile
CPT/HCPCS: 36415; 71045; 71275; 74177; 80053; 80306; 83605; 83690; 83880; 84484; 85007; 85027; 85379; 85610; 85730; 87040; 93005; 93041; Q9967

== ENCOUNTER 2022-04-27 16:44 | Emergency (ER) | payer MEDICARE, MEDICAID ==
--- NOTE | 2022-04-27 16:47 | ED Dyspnea ---
General Stated Complaint: SOA History of Present Illness Date Seen by Provider: Apr 27, 2022 Time Seen by Provider: 16:47 Initial Comments 76-year-old female presents with cough for couple days. Patient reports she is normally on 3 L oxygen at home and has not had to increase it. Patient family was concerned because they checked her oxygen and had a reading that was low for her. Upon arrival her oxygen was in the mid to upper 90s. She has an appointment coming up with her primary care provider to have it checked out. Yaron jesse is not really sure why they made her come. Patient has some mild diarrhea no nausea vomiting chest pain fever or other systemic complaints. Allergies and Home Medications Allergies Coded Allergies: No Known Drug Allergies (Unverified , 04/17/19) Patient Home Medication List Home Medication List Reviewed: Yes Amlodipine Besylate (Amlodipine Besylate) 5 Mg Tablet, 10 MG PO DAILY Prescribed by: PRAKASH SHARMA on 04/14/21 1539 Atorvastatin Calcium (Atorvastatin Calcium) 40 Mg Tablet, 40 MG PO DAILY, (Reported) Entered as Reported by: TO CHACON on 04/18/19 0944 Benzonatate (Tessalon Perles) 100 Mg Capsule, 100 MG PO TID PRN for COUGH Prescribed by: SHADY SANCHEZ on 04/27/22 175 Carvedilol (Coreg) 25 Mg Tab, 25 MG PO BID, (Reported) Entered as Reported by: TO CHACON on 04/18/19 09 Desvenlafaxine (Desvenlafaxine ER) 100 Mg Tab.er.24h, 100 MG PO DAILY, (Reported) Entered as Reported by: KHLOE FORD on 01/21/21 104 Doxycycline Hyclate (Doxycycline Hyclate) 100 Mg Tablet, 100 MG PO BID Prescribed by: SHADY SANCHEZ on 04/27/22 175 Glipizide (Glipizide) 10 Mg Tablet, 10 MG PO DAILY, (Reported) Entered as Reported by: TO CHACON on 04/18/19 0944 Hydroxyzine HCl (Hydroxyzine HCl) 50 Mg Tablet, 50 MG PO BID PRN for ANXIETY, (Reported) Entered as Reported by: KHLOE FORD on 01/21/21 1048 Levothyroxine Sodium (Levothyroxine Sodium) 75 Mcg Tablet, 75 MCG PO DAILY, (Reported) Entered as Reported by: TO CHACON on 04/18/19 0944 Ondansetron HCl (Ondansetron HCl) 4 Mg Tablet, 4 MG PO Q4H PRN for NAUSEA/VOMITING, (Reported) Entered as Reported by: KHLOE FORD on 01/21/21 1048 Tizanidine HCl (Tizanidine HCl) 2 Mg Tablet, 2 MG PO BID, (Reported) Entered as Reported by: KHLOE FORD on 01/21/21 1048 Trazodone HCl (Trazodone HCl) 50 Mg Tablet, 50 MG PO HS PRN for SLEEP, (Reported) Entered as Reported by: ALYSSA VITAL on 02/20/21 1437 Verapamil HCl (Verapamil ER) 120 Mg Tablet.er, 120 MG PO DAILY, (Reported) Entered as Reported by: TO CHACON on 04/18/19 0944 Review of Systems Review of Systems Constitutional: No chills, No fever EENTM: nose congestion Respiratory: cough, short of breath (Chronic) Cardiovascular: No chest pain, No palpitations Gastrointestinal: No abdominal pain; diarrhea; No nausea, No vomiting Genitourinary: no symptoms reported Musculoskeletal: no symptoms reported Skin: no symptoms reported Psychiatric/Neurological: No Symptoms Reported Endocrine: No Symptoms Reported Past Ftzdphb-Xvoenn-Ptespy Hx Immunizations Up To Date First/Initial COVID19 Vaccinat: N/A Second COVID19 Vaccination Babatunde: N/A Third COVID19 Vaccination Date: N/A Seasonal Allergies Seasonal Allergies: No Past Medical History Surgery/Hospitalization HX: HTN; High cholesterol; DM; Hypothyroidism Surgeries: Yes (GROWTH REMOVED FROM RIGHT SABIANISM, NASAL SURGERY) Appendectomy, Gallbladder, Hysterectomy, Nose Respiratory: No Currently Using CPAP: No Currently Using BIPAP: No Cardiac: Yes High Cholesterol, Hypertension Neurological: Yes Headaches /Migraines, Neuropathy, Stroke Female 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 Sexually Transmitted Disease: No HIV/AIDS: No Genitourinary: No Gastrointestinal: No Musculoskeletal: Yes Arthritis Endocrine: Yes Hypothyroidsim, Diabetes, Non-Insulin dep HEENT: Yes (WEARS GLASSES) Loss of Vision: Denies Hearing Impairment: Denies Cancer: Yes Skin What Type of Treatment Did You: Surgical Intervention Psychosocial: Yes Sleep Difficulties, Anxiety, Depression Integumentary: No Blood Disorders: No Family Medical History No Pertinent Family Hx, Lung Disease, Other Conditions/Hx Physical Exam Vital Signs Vital Signs - First Documented Capillary Refill : Height, Weight, BMI Height: '" Weight: lbs. oz. 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 Skin: Normal Color, Warm/Dry Progress/Results/Core Measures Results/Orders Lab Results Laboratory Tests Test 04/27/22 16:50 04/27/22 17:10 Range/Units Influenza Type A (RT-PCR) Not Detected Not Detecte Influenza Type B (RT-PCR) Not Detected Not Detecte SARS-CoV-2 RNA (RT-PCR) Not Detected Not Detecte White Blood Count 16.8 H 4.3-11.0 10^3/uL Red Blood Count 4.54 3.80-5.11 10^6/uL Hemoglobin 12.7 11.5-16.0 g/dL Hematocrit 38 35-52 % Mean Corpuscular Volume 84 80-99 fL Mean Corpuscular Hemoglobin 28 25-34 pg Mean Corpuscular Hemoglobin Concent 33 32-36 g/dL Red Cell Distribution Width 14.1 10.0-14.5 % Platelet Count 336 130-400 10^3/uL Mean Platelet Volume 9.9 9.0-12.2 fL Immature Granulocyte % (Auto) 1 % Neutrophils (%) (Auto) 64 42-75 % Lymphocytes (%) (Auto) 20 12-44 % Monocytes (%) (Auto) 11 0-12 % Eosinophils (%) (Auto) 4 0-10 % Basophils (%) (Auto) 1 0-10 % Neutrophils # (Auto) 10.8 H 1.8-7.8 10^3/uL Lymphocytes # (Auto) 3.3 1.0-4.0 10^3/uL Monocytes # (Auto) 1.9 H 0.0-1.0 10^3/uL Eosinophils # (Auto) 0.6 H 0.0-0.3 10^3/uL Basophils # (Auto) 0.1 0.0-0.1 10^3/uL Immature Granulocyte # (Auto) 0.1 0.0-0.1 10^3/uL Neutrophils % (Manual) 69 % Lymphocytes % (Manual) 18 % Monocytes % (Manual) 9 % Eosinophils % (Manual) 5 % Basophils % (Manual) 0 % Band Neutrophils 0 % Sodium Level 136 135-145 MMOL/L Potassium Level 4.3 3.6-5.0 MMOL/L Chloride Level 103 98-107 MMOL/L Carbon Dioxide Level 20 L 21-32 MMOL/L Anion Gap 13 5-14 MMOL/L Blood Urea Nitrogen 22 H 7-18 MG/DL Creatinine 1.30 0.60-1.30 MG/DL Estimat Glomerular Filtration Rate 43 BUN/Creatinine Ratio 17 Glucose Level 171 H 70-105 MG/DL Calcium Level 9.3 8.5-10.1 MG/DL Corrected Calcium 9.9 8.5-10.1 MG/DL Total Bilirubin 0.5 0.1-1.0 MG/DL Aspartate Amino Transf (AST/SGOT) 11 5-34 U/L Alanine Aminotransferase (ALT/SGPT) 12 0-55 U/L Alkaline Phosphatase 120 40-136 U/L Total Protein 6.5 6.4-8.2 GM/DL Albumin 3.3 3.2-4.5 GM/DL My Orders Orders - SANCHEZ,SHADY L DO Cbc With Automated Diff (04/27/22 16:50) Comprehensive Metabolic Panel (04/27/22 16:50) Influenza A And B By Pcr (04/27/22 16:50) Covid 19 Inhouse Test (04/27/22 16:50) Chest 1 View Ap/Pa Only (04/27/22 16:50) Manual Differential (04/27/22 17:10) Benzonatate Capsule (Tessalon Perles) (04/27/22 18:00) Vital Signs/I&O 04/27/22 04/27/22 04/27/22 16:45 16:45 17:57 Temp 36.2 36.2 Pulse 69 69 Resp 26 26 B/P (MAP) 136/90 (105) 136/90 Pulse Ox 96 96 O2 Delivery Nasal Cannula Nasal Cannula Nasal Cannula O2 Flow Rate 3.00 3.00 3.00 3.00 Progress Progress Note : Progress Note Patient's symptoms are consistent with a bronchitis, upper respiratory infect ion. labs where reviewed, She does have elevated white count. She has a negative chest x-ray. She does have significant cough. I will treat her with doxycycline and Tessalon Perles to help her with her cough his cough is her main complaint. She is neck pain of any shortness of breath. She is normally on 3 L home oxygen. I actually turned her down to 2 L and she maintained in the mid 90s. I feel it is appropriate to try outpatient antibiotics and treatment at this time. Patient was stable and discharged Diagnostic Imaging Diagonstic Imaging: Xray Plain Films/CT/US/NM/MRI: chest Comments Date of Exam:04/27/22 CHEST 1 VIEW AP/PA ONLY EXAMINATION: Chest radiograph, portable AP view. DATE: 04/27/2022 5:06 PM INDICATION: 76-year-old female, cough. COMPARISON: September 14, 2021. CT chest September 14, 2021. FINDINGS: Heart size and mediastinal contours are unchanged. There is no identified pneumothorax. Lung volumes are somewhat low. There is nonspecific bibasilar airspace consolidation. This appears fairly similar to the prior radiograph. There are technical limitations of the study relating to patient body habitus and difficulties with exposure. IMPRESSION: 1. Nonspecific bibasilar airspace consolidation similar to prior exam most likely relating to scarring and/or atelectasis. 2. No radiographically apparent interval acute cardiopulmonary abnormality. Reviewed: Reviewed by Me, Reviewed/Discussed Departure Impression Primary Impression: Bronchitis Disposition: HOME, SELF-CARE Condition: Stable Departure-Patient Inst. Referrals: YANELI RIVER MD (PCP/Family) Primary Care Physician Patient Instructions: Acute Bronchitis, Adult (DC) Add. Discharge Instructions: Please follow-up with your primary care provider in a couple days for recheck of your symptoms. Return to the ER as needed Scripts Benzonatate (TESSALON PERLES) 100 Mg Capsule 100 MG PO TID PRN for COUGH, #14 CAP Prov: SANCHEZ,SHADY L DO 04/27/22 Doxycycline Hyclate (Doxycycline Hyclate) 100 Mg Tablet 100 MG PO BID, #20 TAB 0 Refills Prov: SANCHEZ,SHADY L DO 04/27/22 SANCHEZ,SHADY L DO Apr 27, 2022 16:47
[2022-04-27 17:15] LABS: BASOPHILS # (AUTO) 0.1 10^3/uL (0.0-0.1); BASOPHILS % (AUTO) 1 % (0-10); EOSINOPHILS # (AUTO) 0.6 10^3/uL (0.0-0.3); EOSINOPHILS % (AUTO) 4 % (0-10); HEMATOCRIT 38 % (35-52); HEMOGLOBIN 12.7 g/dL (11.5-16.0); LYMPHOCYTES # (AUTO) 3.3 10^3/uL (1.0-4.0); LYMPHOCYTES % (AUTO) 20 % (12-44); MEAN CORPUSCULAR HEMOGLOBIN 28 pg (25-34); MEAN CORPUSCULAR HGB CONC 33 g/dL (32-36); MEAN CORPUSCULAR VOLUME 84 fL (80-99); MEAN PLATELET VOLUME 9.9 fL (9.0-12.2); MONOCYTES # (AUTO) 1.9 10^3/uL (0.0-1.0); MONOCYTES % (AUTO) 11 % (0-12); NEUTROPHILS # (AUTO) 10.8 10^3/uL (1.8-7.8); NEUTROPHILS % (AUTO) 64 % (42-75); PLATELET COUNT 336 10^3/uL (130-400); WHITE BLOOD COUNT 16.8 10^3/uL (4.3-11.0)
--- NOTE | 2022-04-27 17:20 | Diagnostic Imaging Report ---
EXAMINATION: Chest radiograph, portable AP view. DATE: 04/27/2022 5:06 PM INDICATION: 76-year-old female, cough. COMPARISON: September 14, 2021. CT chest September 14, 2021. FINDINGS: Heart size and mediastinal contours are unchanged. There is no identified pneumothorax. Lung volumes are somewhat low. There is nonspecific bibasilar airspace consolidation. This appears fairly similar to the prior radiograph. There are technical limitations of the study relating to patient body habitus and difficulties with exposure. IMPRESSION: 1. Nonspecific bibasilar airspace consolidation similar to prior exam most likely relating to scarring and/or atelectasis. 2. No radiographically apparent interval acute cardiopulmonary abnormality. Dictated by: Dictated on workstation # [id number]
[2022-04-27 17:40] LABS: ALBUMIN 3.3 GM/DL (3.2-4.5); BILIRUBIN,TOTAL 0.5 MG/DL (0.1-1.0); CALCIUM 9.3 MG/DL (8.5-10.1); CREATININE SERUM 1.3 MG/DL (0.60-1.30); POTASSIUM 4.3 MMOL/L (3.6-5.0); TOTAL PROTEIN 6.5 GM/DL (6.4-8.2)
[2022-04-27 17:41] LABS: BAND NEUTROPHILS 0 %; EOSINOPHILS % (MANUAL) 5 %; MONOCYTES % (MANUAL) 9 %; NEUTROPHILS % (MANUAL) 69 %
[2022-04-27 17:42] LABS: BASOPHILS % (MANUAL) 0 %; LYMPHOCYTES % (MANUAL) 18 %
[2022-04-27] MEDS ORDERED: DOXY100T2 PO (17:55)
[2022-04-27] MEDS ORDERED: BENZ100C18 PO (17:55)
[2022-04-27 17:57] VITALS: BP 136/90
[2022-04-27] MEDS ORDERED: BENZONATATE 100 MG (TESSALON) CAPSULE PO SCH (18:00)
== END 2022-04-27 18:01 | disposition home or self-care (01) ==
LOC: EDUNIT# 16:44 → ER FS 16:46
DX: J40 Bronchitis, not specified as acute or chronic (principal); Z28.310 Unvaccinated for COVID-19; Z20.822 Contact with and (suspected) exposure to COVID-19
CPT/HCPCS: 36415; 71045; 80053; 85007; 85027; 87636